=== PATIENT | male | born 1965 | race American Indian/Alaskan Native ===

== ENCOUNTER 2019-07-06 14:35 | Emergency (ER) | payer MEDICARE, OTHER ==
--- NOTE | 2019-07-06 14:45 | Emergency Department Report ---
Blank Doc - Documentation Documentation: This is a 54-year-old male that presents with SOB and cough. m HX of cardiac. This initial assessment/diagnostic orders/clinical plan/treatment(s) is/are subject to change based on patient's health status, clinical progression and re- assessment by fellow clinical providers in the ED. Further treatment and workup at subsequent clinical providers discretion. Patient/guardians urged not to elope from the ED as their condition may be serious if not clinically assessed and managed. Initial orders include: 1- Patient sent to MAIN for further evaluation and treatment 2- las 3- EKG 4- cXR
[2019-07-06 15:26] LABS: Basophils % (Auto) 0.9 % (0.0-1.8); Eosinophils # (Auto) 0.2 K/mm3 (0.0-0.4); Eosinophils % (Auto) 3.4 % (0.0-4.3); Hematocrit 45.1 % (35.5-45.6); Hemoglobin 15.4 gm/dl (11.8-15.2); Lymphocytes # (Auto) 1.6 K/mm3 (1.2-5.4); Lymphocytes % (Auto) 33.5 % (13.4-35.0); Mean Corpuscular HGB Conc 34 % (32-34); Mean Corpuscular Volume 85 fl (84-94); Monocytes # (Auto) 0.5 K/mm3 (0.0-0.8); Monocytes % (Auto) 10.8 % (0.0-7.3); Platelet Count 196 K/mm3 (140-440); Red Blood Count 5.29 M/mm3 (3.65-5.03); Red Cell Distribution Width 13.8 % (13.2-15.2)
[2019-07-06 15:38] LABS: INR 1.95 (0.87-1.13)
[2019-07-06 15:40] LABS: Partial Thromboplastin Time 56.9 Sec. (24.2-36.6)
[2019-07-06 15:47] LABS: BUN/Creatinine Ratio 11; Blood Urea Nitrogen 13 mg/dL (9-20); Calcium 9.1 mg/dL (8.4-10.2); Hemolysis Index 8
--- NOTE | 2019-07-06 16:13 | XRay Report ---
CHEST 2 VIEWS INDICATION: Chest pain, shortness of breath, fatigue. COMPARISON: None FINDINGS: Support devices: A single lead pacemaker device terminates in the right ventricle. Heart: Within normal limits. Lungs/pleura: No acute air space or interstitial disease. No pneumothorax. Additional findings: None. IMPRESSION: No acute findings. Signer Name: Gibran Garcia Jr, MD Signed: 07/06/2019 4:09 PM Workstation Name: [id number]
--- NOTE | 2019-07-06 16:41 | Emergency Department Report ---
ED Shortness of Breath HPI - General Chief Complaint: Chest Pain Stated Complaint: SOB/COUGHING Time Seen by Provider: 07/06/19 14:44 Source: patient Mode of arrival: Ambulatory Limitations: Language Barrier - History of Present Illness Initial Comments: 54-year-old male with history of CVA with aphasia, atrial fibrillation (currently on Pradaxa) with pacer/defibrillator presents to ED with shortness of breath for approximately 3 weeks. states patient was seen by his PCP 3 weeks ago. At that time he was having dyspnea on exertion. PCP ordered an outpatient chest x-ray, however, patient did not want to go because he thought that his bottom sprayer would be able to do one at today's appointment. Over the last 3 weeks, patient has developed cough, productive of whitish sputum. denies any fever. Patient denies chest pain. reports development of the lateral lower extremity edema. Patient was seen by his bottom sprayer, Dr. Alex rascon, today. States he was given a prescription for Lasix at his appointment, but advised to come to the ER for a chest x-ray. MD Complaint: shortness of breath, cough -: week(s) (3) Severity: moderate Consistency: intermittent Improves With: rest Worsens With: exertion Associated Symptoms: cough, sputum production Treatments Prior to Arrival: none - Related Data Home Oxygen Therapy: No Home Medications Medication Instructions Recorded Confirmed Last Taken Carvedilol [Coreg] 25 mg PO BID 10/08/15 10/08/15 10/07/15 Chlorthalidone [Thalitone] 25 mg PO QDAY 10/08/15 10/08/15 10/07/15 Dabigatran [Pradaxa] 150 mg PO BID 10/08/15 10/08/15 10/07/15 Digoxin [Lanoxin] 0.125 mg PO DAILY 10/08/15 10/08/15 10/07/15 Diltiazem HCl [Diltiazem ER] 240 mg PO DAILY 10/08/15 10/08/15 10/07/15 Lisinopril [Zestril TAB] 40 mg PO QDAY 10/08/15 10/08/15 10/07/15 Oxybutynin [Ditropan] 5 mg PO BID 10/08/15 10/08/15 10/07/15 Pravastatin [Pravachol] 80 mg PO QHS 10/08/15 10/08/15 10/07/15 Triamcinolone Acetonide [Oralone 5 gm DT Q6HR 10/08/15 10/08/15 10/07/15 0.1% PASTE] cephALEXin [Keflex] 500 mg PO Q12HR 10/08/15 10/08/15 10/07/15 Allergies Allergy/AdvReac Type Severity Reaction Status Date / Time No Known Allergies Allergy Unverified 10/08/15 03:03 ED Review of Systems ROS: Stated complaint: SOB/COUGHING Other details as noted in HPI Comment: All other systems reviewed and negative Constitutional: denies: chills, fever Respiratory: cough, SOB with exertion Cardiovascular: denies: chest pain Musculoskeletal: other (reports lower extremity edema) ED Past Medical Hx - Past Medical History Hx Hypertension: Yes Hx CVA: Yes (right side deficits) Hx Congestive Heart Failure: Yes Hx Diabetes: No Hx Renal Disease: No Hx Arthritis: Yes (gout) Hx Seizures: No Hx Asthma: No Additional medical history: irregular heart beat - Surgical History Hx Pacemaker: Yes Hx Internal Defibrillator: Yes - Social History Smoking Status: Never Smoker Substance Use Type: None - Medications Home Medications: Home Medications Medication Instructions Recorded Confirmed Last Taken Type Carvedilol [Coreg] 25 mg PO BID 10/08/15 10/08/15 10/07/15 History Chlorthalidone [Thalitone] 25 mg PO QDAY 10/08/15 10/08/15 10/07/15 History Dabigatran [Pradaxa] 150 mg PO BID 10/08/15 10/08/15 10/07/15 History Digoxin [Lanoxin] 0.125 mg PO DAILY 10/08/15 10/08/15 10/07/15 History Diltiazem HCl [Diltiazem ER] 240 mg PO DAILY 10/08/15 10/08/15 10/07/15 History Lisinopril [Zestril TAB] 40 mg PO QDAY 10/08/15 10/08/15 10/07/15 History Oxybutynin [Ditropan] 5 mg PO BID 10/08/15 10/08/15 10/07/15 History Pravastatin [Pravachol] 80 mg PO QHS 10/08/15 10/08/15 10/07/15 History Triamcinolone Acetonide [Oralone 5 gm DT Q6HR 10/08/15 10/08/15 10/07/15 History 0.1% PASTE] cephALEXin [Keflex] 500 mg PO Q12HR 10/08/15 10/08/15 10/07/15 History ED Physical Exam - General Limitations: Language Barrier General appearance: alert, in no apparent distress - Head Head exam: Present: atraumatic, normocephalic - Eye Eye exam: Present: normal appearance - ENT ENT exam: Present: mucous membranes moist - Neck Neck exam: Present: normal inspection - Respiratory Respiratory exam: Present: normal lung sounds bilaterally. Absent: respiratory distress - Cardiovascular Cardiovascular Exam: Present: regular rate, normal rhythm - GI/Abdominal GI/Abdominal exam: Present: soft. Absent: distended, tenderness - Extremities Exam Extremities exam: Present: pedal edema - Neurological Exam Neurological exam: Present: alert. Absent: CN II-XII intact (expressive aphasia present) - Psychiatric Psychiatric exam: Present: normal affect, normal mood - Skin Skin exam: Present: warm, dry, intact, normal color ED Course Vital Signs 07/06/19 07/06/19 07/06/19 14:44 15:59 17:38 Temperature 97.5 F L 98.1 F 98.1 F Pulse Rate 88 86 69 Respiratory 20 20 20 Rate Blood Pressure 164/112 Blood Pressure 147/102 151/88 [Left] O2 Sat by Pulse 99 97 98 Oximetry ED Medical Decision Making - Lab Data Result diagrams: 07/06/19 15:13 07/06/19 15:13 - EKG Data -: EKG Interpreted by Mt EKG shows normal: QRS complexes, ST-T waves Rate: normal - EKG Data Interpretation: other (Afib present) - Radiology Data Radiology results: report reviewed, image reviewed - Medical Decision Making - CXR negative - possibly early CHF w/ dyspnea on exertion, elevated BNP - pt received rx for Lasix today from bottom sprayer - no resp distress, O2 sats normal - will d/c home at this time - f/u with bottom sprayer - Differential Diagnosis pneumonia, CHF, pleural effusion, ACS Critical care attestation.: If time is entered above; I have spent that time in minutes in the direct care of this critically ill patient, excluding procedure time. ED Disposition Clinical Impression: Dyspnea Disposition: DC-01 TO HOME OR SELFCARE Is pt being admited?: No Condition: Stable Instructions: Heart Failure (ED), Dyspnea (ED) Referrals: NATALIO ROJAS MD [Staff Physician] - 7-10 days Time of Disposition: 18:19
[2019-07-06 17:41] VITALS: BP 151/88
== END 2019-07-06 18:35 | disposition home or self-care (01) ==
LOC: ED 14:35
DX: R47.01 Aphasia (principal); R06.00 Dyspnea, unspecified; I11.0 Hypertensive heart disease with heart failure; I50.9 Heart failure, unspecified; I48.91 Unspecified atrial fibrillation; M10.9 Gout, unspecified; Z86.73 Personal history of transient ischemic attack (TIA), and cerebral infarction without residual deficits; Z95.0 Presence of cardiac pacemaker; Z79.899 Other long term (current) drug therapy
CPT/HCPCS: 36415; 71046; 80048; 83880; 84484; 85025; 85610; 85730; 93005; 93010; 99284

== ENCOUNTER 2019-07-19 14:59 | Inpatient (IN) | payer MEDICARE ==
--- NOTE | 2019-07-19 15:19 | Event Note ---
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 Further treatment and workup at subsequent clinical providers discretion. Patient/guardian urged not to elope from the ED as their condition may be serious if not clinically assessed and managed. Initial orders include: EKG
[2019-07-19] MEDS ORDERED: CARDIZEM IV ONE (15:38)
[2019-07-19] MEDS ORDERED: NACL 0.9% 500 ML 500 ML IV ONE (15:38)
[2019-07-19] MEDS ORDERED: CARDIZEM ONE (15:39)
--- NOTE | 2019-07-19 15:39 | Emergency Department Report ---
ED General Adult HPI - General Chief complaint: Chest Pain Stated complaint: CHEST PAIN/COLD/CLAIMY Time Seen by Provider: 07/19/19 15:12 Source: patient, RN notes reviewed, old records reviewed Mode of arrival: Ambulatory Limitations: Physical Limitation - History of Present Illness Initial comments: This is a pleasant 54-year-old gentleman. This patient is not known to this provider previously. Primary care Dr.: Dr. Lyon Cardiology: [place] [facility] Past medical history: A. fib, on chronic anticoagulation, pradaxa, congestive heart failure, ejection fraction of 30%, [employer] [employer] AICD in situ, high cholesterol Strokes, residual speech impairment, residual right upper extremity right lower external vomiting weakness This is a pleasant 54-year-old gentleman. The patient presents to the ER with family after reports of defibrillator going off 2, earlier on today, although patient was mowing the lawn. The patient endorses compliance with his medications. He denies physical pain at this time. He denies dietary indiscret ion at this time. In the ER, patient felt to be in A. fib, with RVR, at 137 bpm. He is given 500 mL of normal saline, 20 mg of diltiazem, an rate slows down to the high 80s, low 90s. The patient states he has no complaints at this time. He and his family are adamant that he does not have any chest pain. -: Sudden Severity scale (0 -10): 0 Improves with: none Worsens with: none Associated Symptoms: denies other symptoms - Related Data Home Medications Medication Instructions Recorded Confirmed Last Taken Carvedilol [Coreg] 25 mg PO BID 10/08/15 10/08/15 10/07/15 Chlorthalidone [Thalitone] 25 mg PO QDAY 10/08/15 10/08/15 10/07/15 Dabigatran [Pradaxa] 150 mg PO BID 10/08/15 10/08/15 10/07/15 Digoxin [Lanoxin] 0.125 mg PO DAILY 10/08/15 10/08/15 10/07/15 Diltiazem HCl [Diltiazem ER] 240 mg PO DAILY 10/08/15 10/08/15 10/07/15 Lisinopril [Zestril TAB] 40 mg PO QDAY 10/08/15 10/08/15 10/07/15 Oxybutynin [Ditropan] 5 mg PO BID 10/08/15 10/08/15 10/07/15 Pravastatin [Pravachol] 80 mg PO QHS 10/08/15 10/08/15 10/07/15 Triamcinolone Acetonide [Oralone 5 gm DT Q6HR 10/08/15 10/08/15 10/07/15 0.1% PASTE] cephALEXin [Keflex] 500 mg PO Q12HR 10/08/15 10/08/15 10/07/15 Allergies Allergy/AdvReac Type Severity Reaction Status Date / Time No Known Allergies Allergy Unverified 10/08/15 03:03 ED Review of Systems ROS: Stated complaint: CHEST PAIN/COLD/CLAIMY Other details as noted in HPI Comment: All other systems reviewed and negative ED Past Medical Hx - Past Medical History Hx Hypertension: Yes Hx CVA: Yes (right side deficits) Hx Congestive Heart Failure: Yes Hx Diabetes: No Hx Renal Disease: No Hx Arthritis: Yes (gout) Hx Seizures: No Hx Asthma: No Additional medical history: irregular heart beat - Surgical History Hx Pacemaker: Yes Hx Internal Defibrillator: Yes - Social History Smoking Status: Never Smoker Substance Use Type: Alcohol - Medications Home Medications: Home Medications Medication Instructions Recorded Confirmed Last Taken Type Carvedilol [Coreg] 25 mg PO BID 10/08/15 10/08/15 10/07/15 History Chlorthalidone [Thalitone] 25 mg PO QDAY 10/08/15 10/08/15 10/07/15 History Dabigatran [Pradaxa] 150 mg PO BID 10/08/15 10/08/15 10/07/15 History Digoxin [Lanoxin] 0.125 mg PO DAILY 10/08/15 10/08/15 10/07/15 History Diltiazem HCl [Diltiazem ER] 240 mg PO DAILY 10/08/15 10/08/15 10/07/15 History Lisinopril [Zestril TAB] 40 mg PO QDAY 10/08/15 10/08/15 10/07/15 History Oxybutynin [Ditropan] 5 mg PO BID 10/08/15 10/08/15 10/07/15 History Pravastatin [Pravachol] 80 mg PO QHS 1110/08/15 10/07/15 History Triamcinolone Acetonide [Oralone 5 gm DT Q6HR 10/08/15 10/08/15 10/07/15 History 0.1% PASTE] cephALEXin [Keflex] 500 mg PO Q12HR 10/08/15 10/08/15 10/07/15 History ED Physical Exam - General Limitations: Physical Limitation General appearance: alert, in no apparent distress - Head Head exam: Present: atraumatic, normocephalic - Eye Eye exam: Present: normal appearance, EOMI. Absent: nystagmus - ENT ENT exam: Present: normal exam, normal orophraynx, mucous membranes moist, normal external ear exam - Neck Neck exam: Present: normal inspection - Respiratory Respiratory exam: Present: normal lung sounds bilaterally. Absent: respiratory distress - Cardiovascular Cardiovascular Exam: Present: tachycardia, irregular rhythm, normal heart sounds. Absent: systolic murmur, diastolic murmur, rubs, gallop - GI/Abdominal GI/Abdominal exam: Present: soft. Absent: distended, tenderness, guarding, rebound, pulsatile mass - Rectal Rectal exam: Present: deferred - Extremities Exam Extremities exam: Present: normal inspection, other (2+ pulses noted in the bilateral upper, lower extremities. There is no long bone tenderness. Musculoskeletal compartments are soft. The pelvis is stable.). Absent: calf tenderness - Back Exam Back exam: Present: normal inspection. Absent: tenderness, CVA tenderness (R), CVA tenderness (L), paraspinal tenderness, vertebral tenderness - Neurological Exam Neurological exam: Present: alert, motor sensory deficit (his chronic weakness right arm, right leg. This chronic speech impediment), other (there is 4 out of 5 strength right arm and right leg. There is 5 out of 5 strength left arm and left leg. There is no facial droop. Tongue is midline. Patient chronically dysarthric.) - Psychiatric Psychiatric exam: Present: normal affect, normal mood - Skin Skin exam: Present: warm, dry, intact, normal color. Absent: rash ED Course Vital Signs 07/19/19 07/19/19 07/19/19 15:13 15:30 15:44 Temperature 98.2 F Pulse Rate 62 112 H Respiratory 18 19 Rate Blood Pressure 132/66 Blood Pressure 128/83 [Left] O2 Sat by Pulse 98 98 Oximetry 07/19/19 07/19/19 07/19/19 15:45 16:00 16:15 Temperature Pulse Rate 104 H 83 83 Respiratory 13 19 19 Rate Blood Pressure 123/65 123/65 83/56 Blood Pressure [Left] O2 Sat by Pulse 96 97 100 Oximetry 07/19/19 07/19/19 16:30 16:42 Temperature Pulse Rate 85 80 Respiratory 13 18 Rate Blood Pressure 110/78 Blood Pressure 110/62 [Left] O2 Sat by Pulse 100 Oximetry - Reevaluation(s) Reevaluation #1: 07/19/19 16:12 Differential diagnosis, including but not limited to: A. fib with RVR, electrolyte derangement, acute coronary syndrome, pneumonia, urinary tract infection, thyroid derangement Assessment and plan: 54-year-old gentleman with resolved A. fib with RVR. He is on permanent systemic anticoagulation, not hypoxic, not tachycardic at this time, and endorses no DVT or pulmonary embolism risk factors. He endorses that he is not having any pain at this time. We have placed a page to his nursery nurse nutrition services aide, and we are awaiting for them to call back. We have contacted [employer], and their it sales representative PARMJIT, is indicated at the advice will be interrogated tomorrow. X-ray the chest is unremarkable. Patient endorses a dietary compliance, and medication compliance. I suspect that the patient had spontaneous A. fib with RVR, triggered his defibrillator secondary to excessive rate, and received a shock 2. However, we will admit the patient to the medical service for observation, cardiology consultation, and adjustment of medications. Hospital physician will be contacted once initial data points have resulted. Reevaluation #2: 07/19/19 16:48 Laboratory studies show acute renal insufficiency, hypomagnesemia. IV fluids ordered, magnesium infusion ordered. Hospital physician is paged to arrange admission. Reevaluation #3: 07/19/19 16:57 Elevated troponin reviewed and appreciated, likely type II troponin leak, likely secondary to A. fib with RVR, and renal insufficiency. Patient is not endorsing any chest pain. Reevaluation #4: 07/19/19 17:05 Dr Fannie Fox to admit Reevaluation #5: 07/19/19 17:08 d/w Dr Elliot Alfredo, who agrees with rate control, electrolyte correction, gentle h ydration, and indicates his group will follow tomorrow in consultation. ED Medical Decision Making - Lab Data Result diagrams: 07/19/19 15:45 07/19/19 15:45 Vital Signs 07/19/19 07/19/19 15:13 15:30 Temperature 98.2 F Pulse Rate 62 112 H Respiratory 18 Rate Blood Pressure 132/66 Blood Pressure 128/83 [Left] O2 Sat by Pulse 98 Oximetry Lab Results 07/19/19 Range/Units 15:45 WBC 6.3 (4.5-11.0) K/mm3 RBC 5.84 H (3.65-5.03) M/mm3 Hgb 16.8 H (11.8-15.2) gm/dl Hct 49.5 H (35.5-45.6) % MCV 85 (84-94) fl MCH 29 (28-32) pg MCHC 34 (32-34) % RDW 13.7 (13.2-15.2) % Vital Signs 07/19/19 07/19/19 15:13 15:30 Temperature 98.2 F Pulse Rate 62 112 H Respiratory 18 Rate Blood Pressure 132/66 Blood Pressure 128/83 [Left] O2 Sat by Pulse 98 Oximetry Lab Results 07/19/19 Range/Units 15:45 WBC 6.3 (4.5-11.0) K/mm3 RBC 5.84 H (3.65-5.03) M/mm3 Hgb 16.8 H (11.8-15.2) gm/dl Hct 49.5 H (35.5-45.6) % MCV 85 (84-94) fl MCH 29 (28-32) pg MCHC 34 (32-34) % RDW 13.7 (13.2-15.2) % - EKG Data -: EKG Interpreted by Or Rate: tachycardia - EKG Data 07/19/19 16:12 EKG #1 shows atrial fibrillation, variable ventricular rate, QTC 491 ms, poor R progression, motion artifact, no endorsement of chest pain, EKG is abnormal, the EKG is not consistent with ST elevation myocardial infarction. - Radiology Data Radiology results: pending, report reviewed, image reviewed INDICATION / CLINICAL INFORMATION: afib w rvr. Chest pain COMPARISON: None available. FINDINGS: SUPPORT DEVICES: None. HEART / MEDIASTINUM: No significant abnormality. LUNGS / PLEURA: No significant pulmonary or pleural abnormality. No pneumothorax. ADDITIONAL FINDINGS: No significant additional findings. IMPRESSION: 1. No acute findings. Signer Name: Felipe Beckett MD Signed: 07/19/2019 3:57 PM Workstation Name: [id number] Transcribed By: Dictated By: Felipe Beckett MD Electronically Authenticated By: Felipe Beckett MD Signed Date/Time: 07/19/19 2671 Critical Care Time: Yes Critical care time in (mins) excluding proc time.: 35 Critical care attestation.: If time is entered above; I have spent that time in minutes in the direct care of this critically ill patient, excluding procedure time. ED Disposition Clinical Impression: Atrial fibrillation with RVR, Defibrillator discharge, ADAL (acute kidney injury), Hypomagnesemia Disposition: OP ADMIT IP TO THIS HOSP Is pt being admited?: Yes Condition: Good Referrals: KIT NICHOLS MD [Primary Care Provider] - 3-5 Days
--- NOTE | 2019-07-19 16:01 | XRay Report ---
CHEST 1 VIEW INDICATION / CLINICAL INFORMATION: afib w rvr. Chest pain COMPARISON: None available. FINDINGS: SUPPORT DEVICES: None. HEART / MEDIASTINUM: No significant abnormality. LUNGS / PLEURA: No significant pulmonary or pleural abnormality. No pneumothorax. ADDITIONAL FINDINGS: No significant additional findings. IMPRESSION: 1. No acute findings. Signer Name: Felipe Beckett MD Signed: 07/19/2019 3:57 PM Workstation Name: [id number]
[2019-07-19 16:03] LABS: Hematocrit 49.5 % (35.5-45.6); Hemoglobin 16.8 gm/dl (11.8-15.2); Mean Corpuscular HGB Conc 34 % (32-34); Mean Corpuscular Volume 85 fl (84-94); Red Blood Count 5.84 M/mm3 (3.65-5.03); Red Cell Distribution Width 13.7 % (13.2-15.2)
[2019-07-19 16:22] LABS: INR 1.62 (0.87-1.13)
[2019-07-19 16:46] LABS: Albumin 4.3 g/dL (3.9-5); Calcium 9.7 mg/dL (8.4-10.2)
[2019-07-19] MEDS ORDERED: MAGNESIUM SULFATE 2GM/50ML 2 GM/50 ML BAG IV ONE (16:48)
[2019-07-19] MEDS ORDERED: K-DUR PO ONE (16:57)
[2019-07-19] MEDS ORDERED: BABY ASPIRIN PO ONE (16:57)
[2019-07-19 17:06] LABS: Platelet Count 231 K/mm3 (140-440)
[2019-07-19 17:08] LABS: Chol/HDL Ratio 3.82 %
--- NOTE | 2019-07-19 17:14 | History and Physical Report ---
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 Pt states that his AICD has discharged multiple times today. Pt states that he was mowing his lawn and experienced a shock in his chest. EMS notified, and upon arrival the patient was found to be in distress with a heart rate in the 130's. Pt transported to [facility]. Pt seen and evaluated in ED and found to have Atrial Fib with RVR complicated by AICD firing. Pt admitted to telemetry. Cardiology consulted in ED. Pt pending interrogation of AICD in AM. No prior admissions for review. All medication listed at time of admission has been reconciled. Pt denies fever, chills, CP, Palpitations, NVD, Trauma, productive cough, skin rash, or recent ill contacts. Past History Past Medical History: atrial fib, heart failure, hyperlipidemia Past Surgical History: Other (AICD placement.) Social history: . denies: smoking, alcohol abuse, prescription drug abuse Family history: hypertension Medications and Allergies Allergies Allergy/AdvReac Type Severity Reaction Status Date / Time No Known Allergies Allergy Unverified 10/08/15 03:03 Home Medications Medication Instructions Recorded Confirmed Last Taken Type Dabigatran [Pradaxa] 150 mg PO BID 10/08/15 10/08/15 10/07/15 History Diltiazem HCl [Diltiazem ER] 240 mg PO DAILY 10/08/15 10/08/15 10/07/15 History Carvedilol [Coreg] 07/19/19 Unknown History Carvedilol [Coreg] 25 mg .ROUTE DAILY 07/19/19 07/19/19 Unknown History Rosuvastatin Calcium 10 mg PO DAILY 07/19/19 07/19/19 Unknown History Active Meds: Active Medications Magnesium Sulfate (Magnesium Sulfate 2gm/50ml) 2 gm in 50 mls @ 100 mls/hr IV ONCE ONE Stop: 07/19/19 17:17 Potassium Chloride (Kcl 10meq/100ml) 10 meq in 100 mls @ 100 mls/hr IV Q1H MARSHA Stop: 07/19/19 18:59 Review of Systems Constitutional: other (AICD discharge), no weight loss, no weight gain, no fever, no chills Ears, nose, mouth and throat: no ear pain, no ear discharge, no tinnitis, no decreased hearing, no nose pain, no nasal congestion Cardiovascular: no chest pain, no orthopnea, no palpitations, no rapid/irregular heart beat, no edema Respiratory: no cough, no cough with sputum, no excessive sputum, no hemoptysis, no shortness of breath Gastrointestinal: no abdominal pain, no nausea, no vomiting, no diarrhea, no constipation, no hematemesis Genitourinary Male: no flank pain, no discharge, no urinary frequency, no n octuria Rectal: no pain, no incontinence, no bleeding Musculoskeletal: no neck stiffness, no neck pain, no shooting arm pain, no arm numbness/tingling, no low back pain, no leg numbness/tingling, no redness of joints Integumentary: no rash, no pruritis, no redness, no wounds, no jaundice, no boils, no blisters Neurological: no head injury, no transient paralysis, no weakness, no parathesias, no tingling, no seizures, no tremors, no ataxia Psychiatric: no anxiety, no memory loss, no change in sleep habits, no sleep disturbances, no change in appetite, no suicidal ideation, no disorientation Endocrine: no cold intolerance, no heat intolerance, no excessive thirst, no polydipsia, no polyuria, no nocturia, no excessive sweating Hematologic/Lymphatic: no easy bruising, no easy bleeding, no lymphadenopathy, no lymphedema Allergic/Immunologic: no urticaria, no wheezing, no persistent infections, no anaphylaxis Exam - Constitutional Vitals: Temp Pulse Resp BP Pulse Ox 98.2 F 80 18 110/62 100 07/19/19 15:13 07/19/19 16:42 07/19/19 16:42 07/19/19 16:42 07/19/19 16:42 General appearance: Present: mild distress, obese - EENT Eyes: Present: PERRL ENT: hearing intact, clear oral mucosa - Neck Neck: Present: supple, normal ROM - Respiratory Respiratory effort: normal Respiratory: bilateral: CTA - Cardiovascular Rhythm: irregularly irregular Heart Sounds: Present: S1 & S2. Absent: rub, click - Extremities Extremities: pulses symmetrical, No edema Peripheral Pulses: within normal limits - Abdominal General gastrointestinal: Present: soft, non-tender, non-distended, normal bowel sounds Male genitourinary: Present: normal - Integumentary Integumentary: Present: clear, warm, dry - Musculoskeletal Musculoskeletal: gait normal, strength equal bilaterally - Psychiatric Psychiatric: appropriate mood/affect, intact judgment & insight - Neurologic Neurologic: CNII-XII intact, moves all extremities Results - Labs CBC & Chem 7: 07/19/19 15:45 07/19/19 15:45 Labs: Abnormal lab results 07/19/19 07/19/19 07/19/19 Range/Units 15:45 15:45 15:45 RBC 5.84 H (3.65-5.03) M/mm3 Hgb 16.8 H (11.8-15.2) gm/dl Hct 49.5 H (35.5-45.6) % PT 18.9 H (12.2-14.9) Sec. INR 1.62 H (0.87-1.13) Potassium 2.8 L* (3.6-5.0) mmol/L Chloride 92.3 L (98-107) mmol/L BUN 25 H (9-20) mg/dL Creatinine 1.7 H (0.8-1.5) mg/dL Glucose 109 H (75-100) mg/dL Magnesium (1.7-2.3) mg/dL Total Creatine Kinase (55-170) units/L Troponin T 0.117 H* (0.00-0.029) ng/mL Total Protein 8.3 H (6.3-8.2) g/dL Triglycerides 152 H (2-149) mg/dL 07/19/19 Range/Units 15:45 RBC (3.65-5.03) M/mm3 Hgb (11.8-15.2) gm/dl Hct (35.5-45.6) % PT (12.2-14.9) Sec. INR (0.87-1.13) Potassium (3.6-5.0) mmol/L Chloride (98-107) mmol/L BUN (9-20) mg/dL Creatinine (0.8-1.5) mg/dL Glucose (75-100) mg/dL Magnesium 1.50 L (1.7-2.3) mg/dL Total Creatine Kinase 729 H (55-170) units/L Troponin T (0.00-0.029) ng/mL Total Protein (6.3-8.2) g/dL Triglycerides (2-149) mg/dL Assessment and Plan - Patient Problems (1) Systolic CHF Current Visit: Yes Status: Acute Qualifiers: Heart failure chronicity: acute on chronic Qualified Code(s): I50.23 - Acute on chronic systolic (congestive) heart failure Plan to address problem: Admit to telemetry, thyroid panel, magnesium level, strict I/O, daily weight, BNP, cardiology consulted in ED, afterload reduction, chest x ray, (2) Atrial fibrillation with RVR Current Visit: Yes Status: Acute Plan to address problem: Cardiology consulted in ED, Cardizem therapy with normalization of heart rate, continue therapeutic anticoagulation. (3) ADAL (acute kidney injury) Current Visit: Yes Status: Acute Plan to address problem: IVF resuscitation therapy, repeat bmp in am to monitor serum creatnine, urine electrolytes, strict I/O, (4) Defibrillator discharge Current Visit: Yes Status: Acute Plan to address problem: AICD interrogation in AM, cardiology consulted in ED, Admit to telemetry. (5) Hypomagnesemia Current Visit: Yes Status: Acute Plan to address problem: Repleted in ED, (6) Hypokalemia Current Visit: Yes Status: Acute Plan to address problem: repleted in ED, repeat bmp in am, (7) DVT prophylaxis Current Visit: Yes Status: Acute Plan to address problem: SCD to BLE while in bed,
[2019-07-19] MEDS ORDERED: TYLENOL PO PRN (17:17)
[2019-07-19] MEDS ORDERED: PERCOCET 5/325 PO PRN (17:17)
[2019-07-19] MEDS ORDERED: SODIUM CHLORIDE FLUSH SYRINGE 10 ML IV PRN ×2 (17:17→17:20)
[2019-07-19] MEDS ORDERED: PROVENTIL IH PRN (17:17)
[2019-07-19] MEDS ORDERED: ZOFRAN IV PRN (17:17)
[2019-07-19] MEDS: KCL 10MEQ/100ML 10 MEQ/100 ML BAG IV SCH ×2 (17:39→22:00)
[2019-07-19] MEDS ORDERED: CARDIZEM CD PO SCH (18:00)
[2019-07-19] MEDS ORDERED: TRIAMCINOLONE ACETONIDE DT SCH (18:00)
[2019-07-19] MEDS ORDERED: DILTIAZEM HCL 240 MG PO SCH (21:00)
[2019-07-19 21:41] LABS: Bilirubin,Urine NEG (Negative); Color,Urine Straw (Yellow); Urobilinogen,Urine < 2.0 mg/dL (<2.0)
[2019-07-19 21:49] LABS: Blood,Urine MOD (Negative)
[2019-07-19] MEDS: PRAVACHOL PO SCH (21:58)
[2019-07-19] MEDS: CARDIZEM CD PO SCH (21:59)
[2019-07-19] MEDS: PRADAXA PO SCH (22:00)
[2019-07-19] MEDS: DITROPAN PO SCH (22:01)
[2019-07-19] MEDS: COREG PO SCH (22:01)
[2019-07-19] MEDS: SODIUM CHLORIDE FLUSH SYRINGE 10 ML IV SCH (22:01)
[2019-07-20 07:45] LABS: Alanine Aminotransferase 24 units/L (7-56); Albumin 3.9 g/dL (3.9-5); BUN/Creatinine Ratio 20; Blood Urea Nitrogen 24 mg/dL (9-20); Hemolysis Index 11
[2019-07-20] MEDS ORDERED: LANOXIN PO SCH (10:00)
--- NOTE | 2019-07-20 10:31 | Consultation ---
History of Present Illness Consult date: 07/20/19 Consult reason: atrial fibrillation History of present illness: Patient is a 54-year old male with aphasia from a CVA in 2006. Patient has a longstanding history of nonischemic cardiomyopathy and has an indwelling cardiac defibrillator ([employer]). A follow up echocardiogram two months ago shows an LVEF 30-35%. Patient has permanent atrial fibrillation, on pradaxa for anticoagulation and rate controlled with Diltiazem and Carvedilol. Patient was brought to this hospital and found to be in rapid atrial fibrillation. This was treated with intravenous Diltiazem in the emergency department. Initial labs showed severe hypokalemia with a potassium of 2.8 and acute renal failure, creatinine of 1.7. [facility] shocks for rapid atrial fibrillation. Labs today shows continued hypokalemia with a potassium of 2.7. Past History Past Medical History: atrial fib, heart failure, hyperlipidemia Past Surgical History: Other (AICD placement.) Social history: . denies: smoking, alcohol abuse, prescription drug abuse Family history: hypertension Medications and Allergies Allergies Allergy/AdvReac Type Severity Reaction Status Date / Time No Known Allergies Allergy Unverified 10/08/15 03:03 Home Medications Medication Instructions Recorded Confirmed Last Taken Type Dabigatran [Pradaxa] 150 mg PO BID 10/08/15 07/19/19 07/19/19 History Diltiazem HCl [Diltiazem ER] 240 mg PO DAILY 10/08/15 07/19/19 07/19/19 History Carvedilol [Coreg] 25 mg .ROUTE DAILY 07/19/19 07/19/19 07/19/19 History Rosuvastatin Calcium 10 mg PO DAILY 07/19/19 07/19/19 07/19/19 History Active Meds: Active Medications Acetaminophen (Tylenol) 650 mg PO Q4H PRN PRN Reason: Pain MILD(1-3)/Fever >100.5/H[place] Albuterol (Proventil) 2.5 mg IH Q4HRT PRN PRN Reason: Shortness Of Breath Carvedilol (Coreg) 25 mg PO BID [facility] Last Admin: 07/19/19 22:01 Dose: Not Given Documented by: Chlorthalidone (Thalitone) 25 mg PO QDAY [facility] Dabigatran (Pradaxa) 150 mg PO BID [facility]; Protocol Last Admin: 07/19/19 22:00 Dose: 150 mg Documented by: Digoxin (Lanoxin) 0.125 mg PO DAILY [facility] Diltiazem HCl (Cardizem Cd) 240 mg PO QDAY [facility] Last Admin: 07/19/19 21:59 Dose: 240 mg Documented by: Lisinopril (Zestril) 40 mg PO QDAY [facility] Ondansetron HCl (Zofran) 4 mg IV Q8H PRN PRN Reason: Nausea And Vomiting Oxybutynin Chloride (Ditropan) 5 mg PO BID [facility] Last Admin: 07/19/19 22:01 Dose: Not Given Documented by: Oxycodone/Acetaminophen (Percocet 5/325) 1 tab PO Q6H PRN PRN Reason: Pain, Moderate (4-6) Pravastatin Sodium (Pravachol) 80 mg PO QHS [facility] Last Admin: 07/19/19 21:58 Dose: 80 mg Documented by: Sodium Chloride (Sodium Chloride Flush Syringe 10 Ml) 10 ml IV BID [facility] Last Admin: 07/19/19 22:01 Dose: 10 ml Documented by: Sodium Chloride (Sodium Chloride Flush Syringe 10 Ml) 10 ml IV PRN PRN PRN Reason: LINE FLUSH Physical Examination Vital Signs Temp Pulse Resp BP Pulse Ox 98.2 F 62 18 128/83 98 07/19/19 15:13 07/19/19 15:13 07/19/19 15:13 07/19/19 15:13 07/19/19 15:13 General appearance: no acute distress HEENT: Positive: PERRL Neck: Positive: trachea midline Cardiac: Positive: irregularly irregular Lungs: Positive: Decreased Breath Sounds Neuro: Positive: Weakness Results 07/19/19 15:45 07/20/19 06:34 Cardiac Enzymes 07/19/19 07/20/19 Range/Units 15:45 06:34 AST 36 49 H (5-40) units/L Coagulation 07/19/19 Range/Units 15:45 PT 18.9 H (12.2-14.9) Sec. INR 1.62 H (0.87-1.13) Lipids 07/19/19 Range/Units 15:45 Triglycerides 152 H (2-149) mg/dL Cholesterol 172 (50-199) mg/dL HDL Cholesterol 45 (40-59) mg/dL Cholesterol/HDL Ratio 3.82 % CBC 07/19/19 Range/Units 15:45 WBC 6.3 (4.5-11.0) K/mm3 RBC 5.84 H (3.65-5.03) M/mm3 Hgb 16.8 H (11.8-15.2) gm/dl Hct 49.5 H (35.5-45.6) % Plt Count 231 (140-440) K/mm3 Comprehensive Metabolic Panel 07/19/19 07/20/19 Range/Units 15:45 06:34 Sodium 138 139 (137-145) mmol/L Potassium 2.8 L* 2.7 L* (3.6-5.0) mmol/L Chloride 92.3 L 96.4 L (98-107) mmol/L Carbon Dioxide 28 30 (22-30) mmol/L BUN 25 H 24 H (9-20) mg/dL Creatinine 1.7 H 1.2 (0.8-1.5) mg/dL Glucose 109 H 115 H (75-100) mg/dL Calcium 9.7 9.0 (8.4-10.2) mg/dL AST 36 49 H (5-40) units/L ALT 25 24 (7-56) units/L Alkaline Phosphatase 52 46 (35-129) units/L Total Protein 8.3 H 7.4 (6.3-8.2) g/dL Albumin 4.3 3.9 (3.9-5) g/dL Assessment and Plan Permanent Afib on pradaxa for oral anticoagulation Hypokalemia Acute renal failure -resolved Nonischemic cardiomyopathy EF 30-35% by echo 04/2019 Presence of AICD ([employer]) interrogation revealed multiple ICD shocks for rapid afib Hypertension Prior CVA
[2019-07-20] MEDS: CARDIZEM CD PO SCH (10:58)
[2019-07-20] MEDS: THALITONE PO SCH (11:00)
[2019-07-20] MEDS: ZESTRIL PO SCH (11:00)
[2019-07-20] MEDS: PRADAXA PO SCH ×2 (11:00→22:49)
[2019-07-20] MEDS: COREG PO SCH (11:00)
[2019-07-20] MEDS: SODIUM CHLORIDE FLUSH SYRINGE 10 ML IV SCH ×2 (11:02→22:51)
[2019-07-20] MEDS: DITROPAN PO SCH ×2 (11:02→22:50)
[2019-07-20] MEDS ORDERED: K-DUR PO NR ×2 (11:19→15:20)
--- NOTE | 2019-07-20 11:24 | Progress Note ---
Assessment and Plan Assessment and plan: Atrial fibrillation. Continue on pradaxa for oral anticoagulation. Cardiology following. Hypokalemia. Replete potassium. Acute renal failure. Continue IV fluid hydration and follow BMP. Creatinine has improved since admission. Nonischemic cardiomyopathy. EF 30-35% by echo 04/2019 Presence of AICD ([employer]). Interrogation revealed multiple ICD shocks for rapid afib Hypertension. Continue antihypertensive medications. History of CVA in 2006. Residual right-sided hemiparesis and nonverbal History Interval history: Patient is a 54-year old male with aphasia from a CVA in 2006. Patient has a longstanding history of nonischemic cardiomyopathy and has an indwelling cardiac defibrillator ([employer]). A follow up echocardiogram two months ago shows an LVEF 30-35%. Patient has permanent atrial fibrillation, on pradaxa for anticoagulation and rate controlled with Diltiazem and Carvedilol. Patient was brought to this hospital and found to be in rapid atrial fibrillation. This was treated with intravenous Diltiazem in the emergency department. Initial labs showed severe hypokalemia with a potassium of 2.8 and acute renal failure, creatinine of 1.7. Further evaluation with a device interrogation showed multiple shocks for rapid atrial fibrillation. Labs today shows continued hypokalemia with a potassium of 2.7. Hospitalist Physical - Constitutional Vitals: Temp Pulse Resp BP Pulse Ox 98.0 F 65 18 142/98 97 07/20/19 08:33 07/20/19 11:00 07/20/19 08:33 07/20/19 11:00 07/20/19 08:33 General appearance: Present: no acute distress - EENT Eyes: Present: PERRL, EOM intact ENT: hearing intact, clear oral mucosa, dentition normal - Neck Neck: Present: supple, normal ROM - Respiratory Respiratory effort: normal Respiratory: bilateral: CTA - Cardiovascular Rhythm: regular Heart Sounds: Present: S1 & S2. Absent: gallop, rub - Extremities Extremities: no ischemia, No edema, Full ROM - Abdominal General gastrointestinal: soft, non-tender, non-distended, normal bowel sounds - Integumentary Integumentary: Present: clear, warm, dry - Neurologic Neurologic: CNII-XII intact, moves all extremities Results - Labs CBC & Chem 7: 07/19/19 15:45 07/20/19 06:34 Labs: Laboratory Last Values WBC 6.3 K/mm3 (4.5-11.0) 07/19/19 15:45 RBC 5.84 M/mm3 (3.65-5.03) H 07/19/19 15:45 Hgb 16.8 gm/dl (11.8-15.2) H 07/19/19 15:45 Hct 49.5 % (35.5-45.6) H 07/19/19 15:45 MCV 85 fl (84-94) 07/19/19 15:45 MCH 29 pg (28-32) 07/19/19 15:45 MCHC 34 % (32-34) 07/19/19 15:45 RDW 13.7 % (13.2-15.2) 07/19/19 15:45 Plt Count 231 K/mm3 (140-440) 07/19/19 15:45 PT 18.9 Sec. (12.2-14.9) H 07/19/19 15:45 INR 1.62 (0.87-1.13) H 07/19/19 15:45 Sodium 139 mmol/L (137-145) 07/20/19 06:34 Potassium 2.7 mmol/L (3.6-5.0) L* 07/20/19 06:34 Chloride 96.4 mmol/L (98-107) L 07/20/19 06:34 Carbon Dioxide 30 mmol/L (22-30) 07/20/19 06:34 15 mmol/L 07/20/19 06:34 BUN 24 mg/dL (9-20) H 07/20/19 06:34 1.2 mg/dL (0.8-1.5) 07/20/19 06:34 Estimated GFR > 60 ml/min 07/20/19 06:34 20 % 07/20/19 06:34 Glucose 115 mg/dL (75-100) H 07/20/19 06:34 Calcium 9.0 mg/dL (8.4-10.2) 07/20/19 06:34 Magnesium 1.50 mg/dL (1.7-2.3) L 07/19/19 15:45 0.90 mg/dL (0.1-1.2) 07/20/19 06:34 AST 49 units/L (5-40) H 07/20/19 06:34 ALT 24 units/L (7-56) 07/20/19 06:34 46 units/L (35-129) 07/20/19 06:34 729 units/L (55-170) H 07/19/19 15:45 0.194 ng/mL (0.00-0.029) H* D 07/19/19 23:30 7.4 g/dL (6.3-8.2) 07/20/19 06:34 3.9 g/dL (3.9-5) 07/20/19 06:34 1.1 % 07/20/19 06:34 Triglycerides 152 mg/dL (2-149) H 07/19/19 15:45 Cholesterol 172 mg/dL (50-199) 07/19/19 15:45 115 mg/dL (50-130) 07/19/19 15:45 45 mg/dL (40-59) 07/19/19 15:45 3.82 % 07/19/19 15:45 TSH 2.390 mlU/mL (0.270-4.200) 07/19/19 15:45 Free T4 1.17 ng/dL (0.76-1.46) 07/19/19 15:45 Straw (Yellow) 07/19/19 20:37 Clear (Clear) 07/19/19 20:37 6.0 (5.0-7.0) 07/19/19 20:37 Ur Specific Palmer 1.008 (1.003-1.030) 07/19/19 20:37 100 mg/dl mg/dL (Negative) 07/19/19 20:37 Neg mg/dL (Negative) 07/19/19 20:37 Neg mg/dL (Negative) 07/19/19 20:37 Mod (Negative) 07/19/19 20:37 Neg (Negative) 07/19/19 20:37 Neg (Negative) 07/19/19 20:37 < 2.0 mg/dL (<2.0) 07/19/19 20:37 Ur Leukocyte Esterase Neg (Negative) 07/19/19 20:37 1.0 /HPF (0.0-6.0) 07/19/19 20:37 3.0 /HPF (0.0-6.0) 07/19/19 20:37 Active Medications - Current Medications Current Medications: Generic Name Dose Route Start Last Admin Trade Name Freq PRN Reason Stop Dose Admin Acetaminophen 650 mg 07/19/19 17:17 Tylenol PO Q4H PRN Pain MILD(1-3)/Fever >100.5/[place] Albuterol 2.5 mg 07/19/19 17:17 Proventil IH Q4HRT PRN Shortness Of Breath Carvedilol 25 mg 07/19/19 22:00 07/20/19 11:00 Coreg PO 25 mg BID [facility] Administration Chlorthalidone 25 mg 07/20/19 10:00 07/20/19 11:00 Thalitone PO 25 mg QDAY [facility] Administration Dabigatran 150 mg 07/19/19 22:00 07/20/19 11:00 Pradaxa PO 150 mg BID [facility] Administration Protocol Digoxin 0.125 mg 07/20/19 10:00 07/20/19 11:00 Lanoxin PO 0.125 mg DAILY [facility] Administration Diltiazem HCl 240 mg 07/19/19 21:00 07/20/19 10:58 Cardizem Cd PO 240 mg QDAY [facility] Administration Lisinopril 40 mg 07/20/19 10:00 07/20/19 11:00 Zestril PO 40 mg QDAY [facility] Administration Ondansetron HCl 4 mg 07/19/19 17:17 Zofran IV Q8H PRN Nausea And Vomiting Oxybutynin Chloride 5 mg 07/19/19 22:00 07/20/19 11:02 Ditropan PO 5 mg BID [facility] Administration Oxycodone/Acetaminophen 1 tab 07/19/19 17:17 Percocet 5/325 PO Q6H PRN Pain, Moderate (4-6) Potassium Chloride 40 meq 07/20/19 11:19 K-Dur PO 07/20/19 11:20 ONCE ONE Potassium Chloride 40 meq 07/20/19 15:20 K-Dur PO 07/20/19 15:21 ONCE ONE Pravastatin Sodium 80 mg 07/19/19 22:00 07/19/19 21:58 Pravachol PO 80 mg QHS [facility] Administration Sodium Chloride 10 ml 07/19/19 22:00 07/20/19 11:02 Sodium Chloride Flush Syringe 10 Ml IV 10 ml BID [facility] Administration Sodium Chloride 10 ml 07/19/19 17:17 Sodium Chloride Flush Syringe 10 Ml IV PRN PRN LINE FLUSH
[2019-07-20] MEDS: CORDARONE PO SCH (13:00)
[2019-07-20] MEDS: PRAVACHOL PO SCH (22:50)
[2019-07-20] MEDS: LOPRESSOR PO SCH (22:50)
[2019-07-21 06:08] LABS: Hematocrit TNR % (35.5-45.6); Hemoglobin TNR gm/dl (11.8-15.2); Mean Corpuscular Volume TNR fl (84-94); Red Blood Count TNR M/mm3 (3.65-5.03)
[2019-07-21 06:09] LABS: Basophils # (Auto) TNR K/mm3 (0.0-0.1); Basophils % (Auto) TNR % (0.0-1.8); Eosinophils # (Auto) TNR K/mm3 (0.0-0.4); Eosinophils % (Auto) TNR % (0.0-4.3); Lymphocytes # (Auto) TNR K/mm3 (1.2-5.4); Lymphocytes % (Auto) TNR % (13.4-35.0); Mean Corpuscular HGB Conc TNR % (32-34); Mean Platelet Volume TNR fl (6-12); Monocytes # (Auto) TNR K/mm3 (0.0-0.8); Monocytes % (Auto) TNR % (0.0-7.3); Platelet Count TNR K/mm3 (140-440); Red Cell Distribution Width TNR % (13.2-15.2)
[2019-07-21 06:13] LABS: BUN/Creatinine Ratio 20; Blood Urea Nitrogen 26 mg/dL (9-20); Calcium 8.8 mg/dL (8.4-10.2); Hemolysis Index 50
[2019-07-21 08:29] VITALS: BP 111/75
--- NOTE | 2019-07-21 09:47 | Discharge Summary ---
Providers - Providers Date of Admission: 07/19/19 17:17 Date of discharge: 07/21/19 Attending physician: JEAN-PIERRE ROCHA 07/19/19 Consult to Cardiac Rehabilitation [CONS] Routine Reason For Exam: Phase I 07/19/19 15:37 Consult to Physician [CONS] Urgent Comment: Consulting Provider: NATALIO ROJAS Physician Instructions: Reason For Exam: arib rvr Primary care physician: KIT NICHOLS Hospitalization Reason for admission: cp, afib Condition: Good Hospital course: 54-year-old man with a dilated nonischemic cardiomyopathy, chronic atrial fibrillation and a cardiac defibrillator in situ who was admitted to the hospital with palpitations, which started while he was mowing his lawn, and was followed by defibrillator discharge. He is on a rate control strategy with diltiazem and carvedilol, and oral anticoagulation with pradaxa. EKG in the emergency room was his chronic atrial fibrillation with rapid ventricular response. A defibrillator interrogation confirms that he was shocked for rapid atrial fibrillation. No ventricular tachycardia arrhythmias were reported. Cardiology saw the patient in consultation and enhanced AV michael blockade. I recommended continuing diltiazem and switching carvedilol to metoprolol and possibly add amiodarone. The patient's rate was controlled with the adjustment in medications. Also, cardiology recommended to Continue oral anticoagulation on discharge. Patient is felt to have received maximal hospital benefit for discharge. Dedicated discharge time 32 minutes. Disposition: -01 TO HOME OR SELFCARE Time spent for discharge: 32 - Discharge Diagnoses (1) Atrial fibrillation with RVR Status: Acute (2) Defibrillator discharge Status: Acute (3) Hypokalemia Status: Acute (4) Hypomagnesemia Status: Acute Core Measure Documentation - Palliative Care Palliative Care/ Comfort Measures: Not Applicable - Core Measures Any of the following diagnoses?: none Exam - Constitutional Vitals: Temp Pulse Resp BP Pulse Ox 98.2 F 78 18 111/75 97 07/21/19 08:27 07/21/19 08:27 07/21/19 08:27 07/21/19 08:27 07/21/19 08:27 General appearance: Present: no acute distress, well-nourished - EENT Eyes: Present: PERRL ENT: hearing intact, clear oral mucosa - Neck Neck: Present: supple, normal ROM - Respiratory Respiratory effort: normal Respiratory: bilateral: CTA - Cardiovascular Heart Sounds: Present: S1 & S2. Absent: rub, click - Extremities Extremities: pulses symmetrical, No edema Peripheral Pulses: within normal limits - Abdominal General gastrointestinal: Present: soft, non-tender, non-distended, normal bowel sounds Male genitourinary: Present: normal - Integumentary Integumentary: Present: clear, warm, dry - Musculoskeletal Musculoskeletal: gait normal, strength equal bilaterally - Psychiatric Psychiatric: appropriate mood/affect, intact judgment & insight - Neurologic Neurologic: CNII-XII intact, moves all extremities Plan Activity: no restrictions Weight Bearing Status: Full Weight Bearing Diet: low fat, low cholesterol, low salt Follow up with: KIT NICHOLS MD [Primary Care Provider] - 3-5 Days MARCO MARROQUIN MD [Staff Physician] - 7 Days Prescriptions: dilTIAZem CD [Cardizem CD] 240 mg PO QDAY #30 capsule Amiodarone [Cordarone 200 MG TAB] 200 mg PO QDAY #30 tablet Metoprolol [Lopressor TAB] 50 mg PO BID #60 tablet oxyCODONE /ACETAMINOPHEN [Percocet 5/325 mg] 1 tab PO Q6H PRN #10 tablet PRN Reason: Pain, Moderate (4-6) Dabigatran [Pradaxa] 150 mg PO BID #60 capsule Rosuvastatin Calcium 10 mg PO DAILY #30 tablet Chlorthalidone [Thalitone] 25 mg PO QDAY #30 tablet Lisinopril [Zestril TAB] 40 mg PO QDAY #30 tablet
--- NOTE | 2019-07-21 10:22 | Progress Note ---
Assessment and Plan Permanent Afib on pradaxa for oral anticoagulation Hypokalemia Acute renal failure -resolved Nonischemic cardiomyopathy EF 30-35% by echo 04/2019 Presence of AICD ([employer]) interrogation revealed multiple ICD shocks for rapid afib. No ventricular tachycardia arrhythmias were reported. Hypertension Prior CVA Recommendations: Continue diltiazem, metoprolol and amiodarone for rate control on permanent afib. Continue oral anticoagulation. Otherwise, the patient can discharged home. Patient advised to f/u with Dr Nino within 5-7 days. Subjective Date of service: 07/21/19 Interval history: Afib with a well controlled ventricular rate on telemetry. Objective Vital Signs Temp Pulse Resp BP Pulse Ox 07/21/19 08:27 98.2 F 78 18 111/75 97 07/20/19 23:35 98.1 F 87 18 100/54 99 07/20/19 22:50 91 H 07/20/19 19:55 98.1 F 66 17 127/92 97 07/20/19 19:25 98 07/20/19 15:56 16 98 07/20/19 11:00 65 142/98 07/20/19 10:58 65 142/98 07/20/19 10:57 73 142/98 97 - Physical Examination General: No Apparent Distress HEENT: Positive: PERRL Neck: Positive: trachea midline Cardiac: Positive: irregularly irregular Lungs: Positive: Decreased Breath Sounds Neuro: Positive: Weakness - Labs and Meds CBC 07/21/19 Range/Units 04:15 WBC TNR RBC TNR Hgb TNR Hct TNR Plt Count TNR Lymph # TNR Payne # TNR Eos # TNR Baso # TNR Comprehensive Metabolic Panel 07/21/19 Range/Units 04:15 Sodium 137 (137-145) mmol/L Potassium 3.2 L (3.6-5.0) mmol/L Chloride 98.4 (98-107) mmol/L Carbon Dioxide 23 D (22-30) mmol/L BUN 26 H (9-20) mg/dL Creatinine 1.3 (0.8-1.5) mg/dL Glucose 107 H (75-100) mg/dL Calcium 8.8 (8.4-10.2) mg/dL
[2019-07-21] MEDS: CARDIZEM CD PO SCH (11:25)
[2019-07-21] MEDS: LOPRESSOR PO SCH (11:25)
[2019-07-21] MEDS: PRADAXA PO SCH (11:25)
[2019-07-21] MEDS: ZESTRIL PO SCH (11:26)
[2019-07-21] MEDS: CORDARONE PO SCH (11:44)
[2019-07-21] MEDS: THALITONE PO SCH (11:44)
[2019-07-21] MEDS: DITROPAN PO SCH (11:44)
[2019-07-21] MEDS: SODIUM CHLORIDE FLUSH SYRINGE 10 ML IV SCH (11:47)
[2019-07-21] MEDS ORDERED: K-DUR PO ONE (12:23)
== END 2019-07-21 15:15 | disposition home or self-care (01) | DRG 308 ==
LOC: ED 14:59 → 4A 17:17
PROVIDERS: ADMIT Internal Medicine; ATTEND Hospitalist
PROC: 4B02XTZ Measurement of Cardiac Defibrillator, External Approach (ICD-10-PCS; principal; 2019-07-19)
DX: I48.2 Chronic atrial fibrillation (principal); I50.23 Acute on chronic systolic (congestive) heart failure; N17.0 Acute kidney failure with tubular necrosis; I69.351 Hemiplegia and hemiparesis following cerebral infarction affecting right dominant side; K21.9 Gastro-esophageal reflux disease without esophagitis; I42.0 Dilated cardiomyopathy; Y83.8 Other surgical procedures as the cause of abnormal reaction of the patient, or of later complication, without mention of misadventure at the time of the procedure; E83.42 Hypomagnesemia; E87.6 Hypokalemia; M19.90 Unspecified osteoarthritis, unspecified site; I11.0 Hypertensive heart disease with heart failure; E66.9 Obesity, unspecified; M10.9 Gout, unspecified; Y92.89 Other specified places as the place of occurrence of the external cause; Z79.01 Long term (current) use of anticoagulants; Z95.810 Presence of automatic (implantable) cardiac defibrillator; Z82.49 Family history of ischemic heart disease and other diseases of the circulatory system; Z79.899 Other long term (current) drug therapy; Z68.31 Body mass index [BMI] 31.0-31.9, adult; Z72.89 Other problems related to lifestyle; I69.320 Aphasia following cerebral infarction; I69.328 Other speech and language deficits following cerebral infarction
CPT/HCPCS: 36415; 71045; 80048; 80053; 80061; 81001; 82550; 83735; 84439; 84443; 84484; 85025; 85027; 85610; 87086; 93005; 93010; 96361; 96374; G0378; A9270-GY; J3475; J3480; J7040

== ENCOUNTER 2019-07-27 18:35 | Emergency (ER) | payer MEDICARE ==
--- NOTE | 2019-07-27 19:22 | XRay Report ---
CHEST 1 VIEW INDICATION / CLINICAL INFORMATION: Dyspnea. COMPARISON: 07/19/2019 FINDINGS: SUPPORT DEVICES: ICD on the left HEART / MEDIASTINUM: No significant abnormality. LUNGS / PLEURA: No significant pulmonary or pleural abnormality. No pneumothorax. ADDITIONAL FINDINGS: Interval development of mild bilateral dependent atelectasis. IMPRESSION: 1. Bibasilar subsegmental atelectasis. Signer Name: Robert Kenyon MD Signed: 07/27/2019 7:17 PM Workstation Name: [id number]
[2019-07-27 19:33] LABS: Basophils # (Auto) 0.1 K/mm3 (0.0-0.1); Eosinophils # (Auto) 0.1 K/mm3 (0.0-0.4); Eosinophils % (Auto) 2.4 % (0.0-4.3); Hematocrit 44.1 % (35.5-45.6); Hemoglobin 14.8 gm/dl (11.8-15.2); Lymphocytes % (Auto) 36.5 % (13.4-35.0); Mean Corpuscular HGB Conc 34 % (32-34); Mean Corpuscular Volume 86 fl (84-94); Monocytes # (Auto) 0.6 K/mm3 (0.0-0.8); Monocytes % (Auto) 10.3 % (0.0-7.3); Platelet Count 214 K/mm3 (140-440); Red Blood Count 5.16 M/mm3 (3.65-5.03); Red Cell Distribution Width 13.6 % (13.2-15.2)
[2019-07-27 19:58] LABS: Alanine Aminotransferase 25 units/L (7-56); Albumin 3.9 g/dL (3.9-5); BUN/Creatinine Ratio 15; Blood Urea Nitrogen 20 mg/dL (9-20); Calcium 9.4 mg/dL (8.4-10.2); Hemolysis Index 20
--- NOTE | 2019-07-27 21:28 | Emergency Department Report ---
ED General Adult HPI - General Chief complaint: Dyspnea/Respdistress Stated complaint: SOB/CHEST PAIN Time Seen by Provider: 07/27/19 21:09 Source: patient, family Mode of arrival: Ambulatory Limitations: No Limitations - History of Present Illness Initial comments: 54-year-old male with history of CVA, CHF, A. fib, defibrillator presents to ED with dizziness and shortness of breath. Patient was recently discharged approximately one week ago following an admission due to his defibrillator firing during an episode of A. fib with RVR. Patient states that since discharge, over the last week, he has been feeling dizziness with standing and dyspnea with exertion. Denies defibrillator firing since being discharged. Denies any significant lower extremity edema. Patient denies any chest pain. Only new medication the patient received with amiodarone, which she has been taking. Patient has not yet followed up with his concession attendant, Dr. Angela -: week(s) (1) Consistency: intermittent Improves with: rest Worsens with: movement, other (exertion) Associated Symptoms: cough, shortness of breath. denies: chest pain, f ever/chills, nausea/vomiting, syncope - Related Data Home Medications Medication Instructions Recorded Confirmed Last Taken Diltiazem HCl [Diltiazem 24Hr ER] 240 mg PO DAILY 10/08/15 07/19/19 07/19/19 Previous Rx's Medication Instructions Recorded Last Taken Type Amiodarone [Cordarone 200 MG TAB] 200 mg PO QDAY #30 tablet 07/21/19 Unknown Rx Chlorthalidone [Thalitone] 25 mg PO QDAY #30 tablet 07/21/19 Unknown Rx Dabigatran [Pradaxa] 150 mg PO BID #60 capsule 07/21/19 Unknown Rx Lisinopril [Zestril TAB] 40 mg PO QDAY #30 tablet 07/21/19 Unknown Rx Metoprolol [Lopressor TAB] 50 mg PO BID #60 tablet 07/21/19 Unknown Rx Rosuvastatin Calcium 10 mg PO DAILY #30 tablet 07/21/19 Unknown Rx dilTIAZem CD [Cardizem CD] 240 mg PO QDAY #30 capsule 07/21/19 Unknown Rx oxyCODONE /ACETAMINOPHEN [Percocet 1 tab PO Q6H PRN #10 tablet 07/21/19 Unknown Rx 5/325 mg] Allergies Allergy/AdvReac Type Severity Reaction Status Date / Time No Known Allergies Allergy Unverified 10/08/15 03:03 ED Review of Systems ROS: Stated complaint: SOB/CHEST PAIN Other details as noted in HPI Comment: All other systems reviewed and negative Constitutional: denies: chills, fever Respiratory: cough, shortness of breath Cardiovascular: denies: chest pain, palpitations Gastrointestinal: denies: nausea, vomiting Musculoskeletal: other (denies lower extremity edema or pain) Neurological: other (repors lightheadedness) ED Past Medical Hx - Past Medical History Previous Medical History?: Yes Hx Hypertension: Yes Hx CVA: Yes (right side deficits) Hx Congestive Heart Failure: Yes Hx Diabetes: No Hx Renal Disease: No Hx Arthritis: Yes (gout) Hx Seizures: No Hx Asthma: No Additional medical history: irregular heart beat - Surgical History Past Surgical History?: Yes Hx Pacemaker: Yes Hx Internal Defibrillator: Yes - Social History Smoking Status: Never Smoker Substance Use Type: None - Medications Home Medications: Home Medications Medication Instructions Recorded Confirmed Last Taken Type Diltiazem HCl [Diltiazem 24Hr ER] 240 mg PO DAILY 10/08/15 07/19/19 07/19/19 History Amiodarone [Cordarone 200 MG TAB] 200 mg PO QDAY #30 tablet 07/21/19 Unknown Rx Chlorthalidone [Thalitone] 25 mg PO QDAY #30 tablet 07/21/19 Unknown Rx Dabigatran [Pradaxa] 150 mg PO BID #60 capsule 07/21/19 Unknown Rx Lisinopril [Zestril TAB] 40 mg PO QDAY #30 tablet 07/21/19 Unknown Rx Metoprolol [Lopressor TAB] 50 mg PO BID #60 tablet 07/21/19 Unknown Rx Rosuvastatin Calcium 10 mg PO DAILY #30 tablet 07/21/19 Unknown Rx dilTIAZem CD [Cardizem CD] 240 mg PO QDAY #30 capsule 07/21/19 Unknown Rx oxyCODONE /ACETAMINOPHEN [Percocet 1 tab PO Q6H PRN #10 tablet 07/21/19 Unknown Rx 5/325 mg] ED Physical Exam - General Limitations: No Limitations General appearance: alert, in no apparent distress - Head Head exam: Present: atraumatic, normocephalic - Eye Eye exam: Present: normal appearance, PERRL, EOMI - ENT ENT exam: Present: mucous membranes moist - Neck Neck exam: Present: normal inspection - Respiratory Respiratory exam: Present: normal lung sounds bilaterally. Absent: respiratory distress, wheezes, rales - Cardiovascular Cardiovascular Exam: Present: regular rate, irregular rhythm - GI/Abdominal GI/Abdominal exam: Present: soft. Absent: distended, tenderness - Extremities Exam Extremities exam: Absent: pedal edema, calf tenderness - Neurological Exam Neurological exam: Present: alert, oriented X3, motor sensory deficit (baseline right sided weakness from previous CVA) - Psychiatric Psychiatric exam: Present: normal affect, normal mood - Skin Skin exam: Present: warm, dry, intact, normal color ED Course Vital Signs 07/27/19 07/27/19 07/27/19 18:41 21:28 21:30 Temperature 98.5 F 98.3 F Pulse Rate 63 74 78 Respiratory 16 18 26 H Rate Blood Pressure 138/79 116/72 Blood Pressure 128/76 [Left] O2 Sat by Pulse 98 97 98 Oximetry 07/27/19 22:00 Temperature Pulse Rate 71 Respiratory 24 Rate Blood Pressure 133/76 Blood Pressure [Left] O2 Sat by Pulse 99 Oximetry ED Medical Decision Making - Lab Data Result diagrams: 07/27/19 19:09 07/27/19 19:09 - EKG Data -: EKG Interpreted by [place] EKG shows normal: axis, QRS complexes, ST-T waves Rate: normal - EKG Data Interpretation: no acute changes, other (atrial fibrillation) - Radiology Data Radiology results: report reviewed, image reviewed - Medical Decision Making - hypokalemic, potassium given - slightly orthostatic vital signs - SOB reported however, pt in no resp distress, lungs clear on exam, O2 sats nml - BNP within nml range, no pulm edema or infiltrates on CXR - EKG shows no ST changes, chronic Afib, on Pradaxa, trop negative - pt reports symptoms present since last admission and following discharge - workup unremarkable, will d/c home at this time - return precautions given - outpt f/u advised Critical care attestation.: If time is entered above; I have spent that time in minutes in the direct care of this critically ill patient, excluding procedure time. ED Disposition Clinical Impression: Hypokalemia, Dyspnea Disposition: DC-01 TO HOME OR SELFCARE Is pt being admited?: No Condition: Stable Instructions: Hypokalemia (ED), Dyspnea (ED) Referrals: PRIMARY CARE, [Referring] - 3-5 Days Time of Disposition: 23:11
[2019-07-27] MEDS ORDERED: K-DUR PO ONE (21:54)
[2019-07-27 23:43] VITALS: BP 141/95
== END 2019-07-27 23:20 | disposition home or self-care (01) ==
LOC: ED 18:35
DX: E87.6 Hypokalemia (principal); R06.00 Dyspnea, unspecified; I11.0 Hypertensive heart disease with heart failure; I50.9 Heart failure, unspecified; M10.9 Gout, unspecified; Z86.73 Personal history of transient ischemic attack (TIA), and cerebral infarction without residual deficits; Z95.810 Presence of automatic (implantable) cardiac defibrillator; Z79.899 Other long term (current) drug therapy
CPT/HCPCS: 36415; 71046; 80053; 83880; 84484; 85025; 93005; 93010

== ENCOUNTER 2019-10-24 11:28 | Inpatient (IN) | payer MEDICARE ==
--- NOTE | 2019-10-24 11:35 | Emergency Department Report ---
Blank Doc - Documentation Documentation: 54-year-old male that presents with SOB and bilateral leg swellings. HX of ca rdiac. This initial assessment/diagnostic orders/clinical plan/treatment(s) is/are subject to change based on patient's health status, clinical progression and re- assessment by fellow clinical providers in the ED. Further treatment and workup at subsequent clinical providers discretion. Patient/guardians urged not to elope from the ED as their condition may be serious if not clinically assessed and managed. Initial orders include: 1- Patient sent to MAIN ED for further evaluation and treatment 2- labs 3- EKG 4- CXR
[2019-10-24 12:02] LABS: Basophils # (Auto) 0.1 K/mm3 (0.0-0.1); Basophils % (Auto) 1.2 % (0.0-1.8); Eosinophils # (Auto) 0.1 K/mm3 (0.0-0.4); Hematocrit 48.2 % (35.5-45.6); Hemoglobin 16.1 gm/dl (11.8-15.2); Lymphocytes # (Auto) 2.2 K/mm3 (1.2-5.4); Lymphocytes % (Auto) 33.3 % (13.4-35.0); Mean Corpuscular HGB Conc 33 % (32-34); Mean Corpuscular Volume 86 fl (84-94); Monocytes # (Auto) 0.6 K/mm3 (0.0-0.8); Monocytes % (Auto) 9.1 % (0.0-7.3); Platelet Count 239 K/mm3 (140-440); Red Blood Count 5.62 M/mm3 (3.65-5.03); Red Cell Distribution Width 13.8 % (13.2-15.2)
[2019-10-24 12:13] LABS: INR 1.36 (0.87-1.13); Partial Thromboplastin Time 40.7 Sec. (24.2-36.6)
[2019-10-24 12:24] LABS: Alanine Aminotransferase 44 units/L (7-56); Albumin 4.1 g/dL (3.9-5); BUN/Creatinine Ratio 16; Blood Urea Nitrogen 22 mg/dL (9-20); Calcium 9.2 mg/dL (8.4-10.2); Hemolysis Index 7
--- NOTE | 2019-10-24 12:40 | XRay Report ---
CHEST 2 VIEWS INDICATION: Chest Pain. COMPARISON: 08/10/2019 FINDINGS: Support devices: Stable unipolar cardiac lead. Heart: Within normal limits. Lungs/pleura: No acute air space or interstitial disease. No pneumothorax. Additional findings: None. IMPRESSION: 1. No acute findings. Signer Name: Buddy Smith MD Signed: 10/24/2019 12:35 PM Workstation Name: [id number]
--- NOTE | 2019-10-24 12:58 | Emergency Department Report ---
ED Shortness of Breath HPI - General Chief Complaint: Dyspnea/Respdistress Stated Complaint: SOB Time Seen by Provider: 10/24/19 11:34 Source: patient, family Mode of arrival: Wheelchair Limitations: Physical Limitation - History of Present Illness Initial Comments: 54-year-old -[place] male with extensive history of CVA right side deficits, hypertension, congestive heart failure presents to the emergency room stating he's been short of breath for several days. Patient is currently a phasic and does the talking for the patient. Patient has had a CVA in 2006. Patient is currently having no visible distress noted. Patient has been placed on Lasix 40 mg 10/13/2019. He's been short of breath for several weeks but today he felt he needed to come in to be evaluated. Family member denies any lower leg edema. It was reported that patient was weighting 207 after taking Lasix is down to 204. Patient does have an internal defibrillator has not fired. MD Complaint: shortness of breath Onset/Timin -: week(s) Pain Scale: 0 Known History Of: congestive heart failure Treatments Prior to Arrival: none - Related Data Home Oxygen Therapy: No Home Medications Medication Instructions Recorded Confirmed Last Taken Furosemide [Lasix TAB] 40 mg PO DAILY 10/24/19 10/24/19 Unknown Tolterodine Tartrate 4 mg PO DAILY 10/24/19 10/24/19 Unknown Previous Rx's Medication Instructions Recorded Last Taken Type Amiodarone [Cordarone 200 MG TAB] 200 mg PO QDAY #30 tablet 07/21/19 08/09/19 Rx Dabigatran [Pradaxa] 150 mg PO BID #60 capsule 07/21/19 08/09/19 Rx Lisinopril [Zestril TAB] 40 mg PO QDAY #30 tablet 07/21/19 08/09/19 Rx Metoprolol [Lopressor TAB] 50 mg PO BID #60 tablet 07/21/19 08/09/19 Rx Rosuvastatin Calcium 10 mg PO DAILY #30 tablet 07/21/19 08/09/19 Rx dilTIAZem CD [Cardizem CD] 240 mg PO QDAY #30 capsule 07/21/19 08/09/19 Rx Allergies Allergy/AdvReac Type Severity Reaction Status Date / Time No Known Allergies Allergy Unverified 10/08/15 03:03 ED Review of Systems ROS: Stated complaint: SOB Other details as noted in HPI Comment: All other systems reviewed and negative Constitutional: denies: chills, fever Eyes: denies: eye pain, eye discharge, vision change ENT: denies: ear pain, throat pain Respiratory: denies: cough, shortness of breath, wheezing ED Past Medical Hx - Past Medical History Previous Medical History?: Yes Hx Hypertension: Yes Hx CVA: Yes (right side deficits) Hx Congestive Heart Failure: Yes Hx Diabetes: No Hx Renal Disease: No Hx Arthritis: Yes (gout) Hx Seizures: No Hx Asthma: No Additional medical history: irregular heart beat - Surgical History Past Surgical History?: Yes Hx Pacemaker: Yes Hx Internal Defibrillator: Yes - Social History Smoking Status: Never Smoker Substance Use Type: None - Medications Home Medications: Home Medications Medication Instructions Recorded Confirmed Last Taken Type Amiodarone [Cordarone 200 MG TAB] 200 mg PO QDAY #30 tablet 07/21/19 10/24/19 08/09/19 Rx Dabigatran [Pradaxa] 150 mg PO BID #60 capsule 07/21/19 10/24/19 08/09/19 Rx Lisinopril [Zestril TAB] 40 mg PO QDAY #30 tablet 07/21/19 10/24/19 08/09/19 Rx Metoprolol [Lopressor TAB] 50 mg PO BID #60 tablet 07/21/19 10/24/19 08/09/19 Rx Rosuvastatin Calcium 10 mg PO DAILY #30 tablet 07/21/19 10/24/19 08/09/19 Rx dilTIAZem CD [Cardizem CD] 240 mg PO QDAY #30 capsule 07/21/19 10/24/19 08/09/19 Rx Furosemide [Lasix TAB] 40 mg PO DAILY 10/24/19 10/24/19 Unknown History Tolterodine Tartrate 4 mg PO DAILY 10/24/19 10/24/19 Unknown History ED Physical Exam - General Limitations: Physical Limitation General appearance: alert, in no apparent distress - Head Head exam: Present: atraumatic, normocephalic - Eye Eye exam: Present: normal appearance - ENT ENT exam: Present: mucous membranes moist - Neck Neck exam: Present: normal inspection - Respiratory Respiratory exam: Present: normal lung sounds bilaterally. Absent: respiratory distress - Cardiovascular Cardiovascular Exam: Present: regular rate, normal rhythm. Absent: systolic murmur, diastolic murmur, rubs, gallop - GI/Abdominal GI/Abdominal exam: Present: soft, normal bowel sounds. Absent: distended, tenderness, guarding - Extremities Exam Extremities exam: Absent: pedal edema - Back Exam Back exam: Present: normal inspection. Absent: tenderness - Neurological Exam Neurological exam: Present: alert - Expanded Neurological Exam Expanded Speech: Present: total aphasia Cranial nerves: Gag Reflex: Normal, Tongue Deviation: Normal Best Eye Response ([place]): (4) open spontaneously Best Verbal Response ([place]): (1) no verbal response [place] Total: 5 - Psychiatric Psychiatric exam: Present: normal affect, normal mood - Skin Skin exam: Present: warm, dry, intact, normal color. Absent: rash ED Course Vital Signs 10/24/19 13:04 Temperature 99.1 F Pulse Rate 87 Respiratory 16 Rate Blood Pressure 156/94 [Left] O2 Sat by Pulse 97 Oximetry ED Medical Decision Making - Lab Data Result diagrams: 10/24/19 11:46 10/24/19 11:46 - EKG Data Rate: normal - Radiology Data Radiology results: report reviewed Patient: NICK WILKINS MR#: [id number] 4 : 1965 Acct:[id number] Age/Sex: 54 / M ADM Date: 10/24/19 Loc: ED Attending Dr: Ordering Physician: DAVE VALDES NP Date of Service: 10/24/19 Procedure(s): XR chest routine 2V Accession Number(s): [id number] cc: DAVE VALDES NP Fluoro Time In Minutes: CHEST 2 VIEWS INDICATION: Chest Pain. COMPARISON: 08/10/2019 FINDINGS: Support devices: Stable unipolar cardiac lead. Heart: Within normal limits. Lungs/pleura: No acute air space or interstitial disease. No pneumothorax. Additional findings: None. IMPRESSION: 1. No acute findings. Signer Name: Buddy Smith MD Signed: 10/24/2019 12:35 PM Workstation Name: [id number] Transcribed By: JESSY Dictated By: Buddy Smith MD Electronically Authenticated By: Buddy Smith MD Signed Date/Time: 10/24/19 1235 DD/ 1234 TD/TT: - Medical Decision Making 54-year-old -[place] male with extensive history of CVA right side deficits, hypertension, congestive heart failure presents to the emergency room stating he's been short of breath for several days. Patient is currently a phasic and does the talking for the patient. Patient has had a CVA in 2006. Patient is currently having no visible distress noted. Patient has been placed on Lasix 40 mg 10/13/2019. He's been short of breath for several weeks but today he felt he needed to come in to be evaluated. Family member denies any lower leg edema. It was reported that patient was weighting 207 after taking Lasix is down to 204. Patient does have an internal defibrillator has not fired. Critical care attestation.: If time is entered above; I have spent that time in minutes in the direct care of this critically ill patient, excluding procedure time. ED Disposition Clinical Impression: Atrial fibrillation with RVR Condition: Stable Referrals: PRIMARY CARE, [Referring] - 3-5 Days
--- NOTE | 2019-10-24 18:07 | History and Physical Report ---
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 Patient has orthopnea. Patient has shortness of breath on minimal exertion. Has class IV NYHA symptoms. No palpitations. No chest pain. Patient was started on Lasix several or 10 days ago with no relief of symptoms. Worsening symptoms over the last 1 week with orthopnea and paroxysmal nocturnal dyspnea. Also shortness of breath with very minimal exertion. Past Medical History Previous Medical History?: Yes Hypertension: Yes CVA: Yes (right side deficits) Congestive Heart Failure: Yes Arthritis: Yes (gout) Additional medical history: irregular heart beat Surgical History Past Surgical History?: Yes Pacemaker: Yes Internal Defibrillator: Yes Social History Smoking Status: Never Smoker Substance Use Type: None Family History Htn Medications Home Medications: Home Medications Medication Instructions Recorded Confirmed Last Taken Type Amiodarone [Cordarone 200 MG TAB] 200 mg PO QDAY #30 tablet 07/21/19 10/24/19 08/09/19 Rx Dabigatran [Pradaxa] 150 mg PO BID #60 capsule 07/21/19 10/24/19 08/09/19 Rx Lisinopril [Zestril TAB] 40 mg PO QDAY #30 tablet 07/21/19 10/24/19 08/09/19 Rx Metoprolol [Lopressor TAB] 50 mg PO BID #60 tablet 07/21/19 10/24/19 08/09/19 Rx Rosuvastatin Calcium 10 mg PO DAILY #30 tablet 07/21/19 10/24/19 08/09/19 Rx dilTIAZem CD [Cardizem CD] 240 mg PO QDAY #30 capsule 07/21/19 10/24/19 08/09/19 Rx Furosemide [Lasix TAB] 40 mg PO DAILY 10/24/19 10/24/19 Unknown History Tolterodine Tartrate 4 mg PO DAILY 10/24/19 10/24/19 Unknown History Review of Systems ROS: Stated complaint: SOB Other details as noted in HPI Comment: All other systems reviewed and negative Constitutional: denies: chills, fever Eyes: denies: eye pain, eye discharge, vision change ENT: denies: ear pain, throat pain Respiratory: denies: cough, shortness of breath, wheezing Medications and Allergies Allergies Allergy/AdvReac Type Severity Reaction Status Date / Time No Known Allergies Allergy Unverified 10/08/15 03:03 Home Medications Medication Instructions Recorded Confirmed Last Taken Type Amiodarone [Cordarone 200 MG TAB] 200 mg PO QDAY #30 tablet 07/21/19 10/24/19 08/09/19 Rx Dabigatran [Pradaxa] 150 mg PO BID #60 capsule 07/21/19 10/24/19 08/09/19 Rx Lisinopril [Zestril TAB] 40 mg PO QDAY #30 tablet 07/21/19 10/24/19 08/09/19 Rx Metoprolol [Lopressor TAB] 50 mg PO BID #60 tablet 07/21/19 10/24/19 08/09/19 Rx Rosuvastatin Calcium 10 mg PO DAILY #30 tablet 07/21/19 10/24/19 08/09/19 Rx dilTIAZem CD [Cardizem CD] 240 mg PO QDAY #30 capsule 07/21/19 10/24/19 08/09/19 Rx Furosemide [Lasix TAB] 40 mg PO DAILY 10/24/19 10/24/19 Unknown History Tolterodine Tartrate 4 mg PO DAILY 10/24/19 10/24/19 Unknown History Exam - Constitutional Vitals: Temp Pulse Resp BP Pulse Ox 99.1 F 73 23 160/93 99 10/24/19 13:04 10/24/19 17:00 10/24/19 17:00 10/24/19 17:00 10/24/19 17:00 General appearance: Present: mild distress, well-nourished - EENT Eyes: Present: PERRL ENT: hearing intact, clear oral mucosa - Neck Neck: Present: supple, normal ROM - Respiratory Respiratory effort: normal Respiratory: bilateral: rales (scattered) - Cardiovascular Heart rate: 78 Rhythm: irregularly irregular Heart Sounds: Present: S1 & S2. Absent: rub, click - Extremities Extremities: no ischemia, pulses intact, pulses symmetrical, No edema Peripheral Pulses: within normal limits - Abdominal General gastrointestinal: Present: soft, non-tender, non-distended, normal bowel sounds Male genitourinary: Present: normal - Rectal Rectal Exam: deferred - Integumentary Integumentary: Present: clear, warm, dry - Musculoskeletal Musculoskeletal: strength equal bilaterally, right sided weakness - Psychiatric Psychiatric: appropriate mood/affect, intact judgment & insight - Neurologic Neurologic: CNII-XII intact, focal deficits (right-sided hemiplegia, aphasia) - Allied Health Allied health notes reviewed: nursing, social work Results - Labs CBC & Chem 7: 10/24/19 11:46 10/24/19 11:46 Labs: Laboratory Last Values WBC 6.7 K/mm3 (4.5-11.0) 10/24/19 11:46 RBC 5.62 M/mm3 (3.65-5.03) H 10/24/19 11:46 Hgb 16.1 gm/dl (11.8-15.2) H 10/24/19 11:46 Hct 48.2 % (35.5-45.6) H 10/24/19 11:46 MCV 86 fl (84-94) 10/24/19 11:46 MCH 29 pg (28-32) 10/24/19 11:46 MCHC 33 % (32-34) 10/24/19 11:46 RDW 13.8 % (13.2-15.2) 10/24/19 11:46 Plt Count 239 K/mm3 (140-440) 10/24/19 11:46 Lymph % (Auto) 33.3 % (13.4-35.0) 10/24/19 11:46 [place] % (Auto) 9.1 % (0.0-7.3) H 10/24/19 11:46 Eos % (Auto) 2.0 % (0.0-4.3) 10/24/19 11:46 Baso % (Auto) 1.2 % (0.0-1.8) 10/24/19 11:46 Lymph # 2.2 K/mm3 (1.2-5.4) 10/24/19 11:46 [place] # 0.6 K/mm3 (0.0-0.8) 10/24/19 11:46 Eos # 0.1 K/mm3 (0.0-0.4) 10/24/19 11:46 Baso # 0.1 K/mm3 (0.0-0.1) 10/24/19 11:46 Seg Neutrophils % 54.4 % (40.0-70.0) 10/24/19 11:46 Seg Neutrophils # 3.7 K/mm3 (1.8-7.7) 10/24/19 11:46 PT 16.6 Sec. (12.2-14.9) H 10/24/19 11:46 INR 1.36 (0.87-1.13) H 10/24/19 11:46 APTT 40.7 Sec. (24.2-36.6) H 10/24/19 11:46 D-Dimer < 135.00 ng/mlDDU (0-234) 10/24/19 14:10 Sodium 144 mmol/L (137-145) 10/24/19 11:46 Potassium 3.1 mmol/L (3.6-5.0) L 10/24/19 11:46 Chloride 97.6 mmol/L (98-107) L 10/24/19 11:46 Carbon Dioxide 29 mmol/L (22-30) 10/24/19 11:46 Anion Gap 21 mmol/L 10/24/19 11:46 BUN 22 mg/dL (9-20) H 10/24/19 11:46 Creatinine 1.4 mg/dL (0.8-1.5) 10/24/19 11:46 Estimated GFR > 60 ml/min 10/24/19 11:46 BUN/Creatinine Ratio 16 % 10/24/19 11:46 Glucose 124 mg/dL (75-100) H 10/24/19 11:46 Calcium 9.2 mg/dL (8.4-10.2) 10/24/19 11:46 Total Bilirubin 0.70 mg/dL (0.1-1.2) 10/24/19 11:46 AST 29 units/L (5-40) 10/24/19 11:46 ALT 44 units/L (7-56) 10/24/19 11:46 Alkaline Phosphatase 51 units/L (35-129) 10/24/19 11:46 Troponin T < 0.010 ng/mL (0.00-0.029) 10/24/19 14:10 NT-Pro-B Natriuret Pep 1478 pg/mL (0-900) H 10/24/19 11:46 Total Protein 7.6 g/dL (6.3-8.2) 10/24/19 11:46 Albumin 4.1 g/dL (3.9-5) 10/24/19 11:46 Albumin/Globulin Ratio 1.2 % 10/24/19 11:46 Short CBC 10/24/19 Range/Units 11:46 WBC 6.7 (4.5-11.0) K/mm3 Hgb 16.1 H (11.8-15.2) gm/dl Hct 48.2 H (35.5-45.6) % Plt Count 239 (140-440) K/mm3 BMP 10/24/19 11:46 Sodium 144 Potassium 3.1 L Chloride 97.6 L Carbon Dioxide 29 BUN 22 H Creatinine 1.4 Glucose 124 H Calcium 9.2 Cardiac Enzymes 10/24/19 10/24/19 Range/Units 11:46 14:10 Troponin T < 0.010 < 0.010 (0.00-0.029) ng/mL Liver Function 10/24/19 Range/Units 11:46 Total Bilirubin 0.70 (0.1-1.2) mg/dL AST 29 (5-40) units/L ALT 44 (7-56) units/L Alkaline Phosphatase 51 (35-129) units/L Albumin 4.1 (3.9-5) g/dL - Imaging and Cardiology EKG: report reviewed Chest x-ray: report reviewed (no acute findings, defibrillator on the left side of the chest) Assessment and Plan Advance Directives: Yes (full code) VTE prophylaxis?: Chemical Plan of care discussed with patient/family: Yes - Patient Problems (1) Acute exacerbation of CHF (congestive heart failure) Current Visit: Yes Status: Acute Qualifiers: Heart failure type: combined systolic and diastolic Qualified Code(s): I50.43 - Acute on chronic combined systolic (congestive) and diastolic (congestive) heart failure Plan to address problem: Patient is short of breath on very minimal exertion and orthopnea and paroxysmal nocturnal dyspnea for which he needs admission Patient is here on IV Lasix every 12 Echocardiogram for ejection fraction Daily intake and output Daily weights Cardiology consult Patient follows with Dr. Nnio (2) Atrial fibrillation Current Visit: Yes Status: Chronic Qualifiers: Atrial fibrillation type: longstanding persistent Qualified Code(s): I48.11 - Longstanding persistent atrial fibrillation Plan to address problem: Continue Pradaxa and Amiodarone (3) Hypokalemia Current Visit: No Status: Acute Plan to address problem: Potassium supplemented (4) Hypertension Current Visit: Yes Status: Chronic Qualifiers: Hypertension type: essential hypertension Qualified Code(s): I10 - Essential (primary) hypertension Plan to address problem: Continue antihypertensives (5) OAB (overactive bladder) Current Visit: Yes Status: Chronic Plan to address problem: Continue Detrol (6) Hyperlipidemia Current Visit: Yes Status: Chronic Qualifiers: Hyperlipidemia type: mixed hyperlipidemia Qualified Code(s): E78.2 - Mixed hyperlipidemia Plan to address problem: Continue statins (7) Presence of combination internal cardiac defibrillator (ICD) and pacemaker Current Visit: Yes Status: Chronic Plan to address problem: No electrical discharges (8) DVT prophylaxis Current Visit: No Status: Acute Plan to address problem: On heparin and GI prophylaxis
[2019-10-24] MEDS ORDERED: HYDROmorphone 1 MG/1 ML INJ IV PRN (18:41)
[2019-10-24] MEDS ORDERED: ACETAMINOPHEN 325 MG TAB PO PRN (18:41)
[2019-10-24] MEDS ORDERED: ONDANSETRON 4 MG/2 ML INJ IV PRN (18:41)
[2019-10-24] MEDS ORDERED: TOLTERODINE TARTRATE 4 MG PO SCH (18:45)
[2019-10-24] MEDS ORDERED: NON-FORMULARY EACH (Rosuvastatin Calcium [Rosuvastatin Calcium] 10 MG) PO SCH (18:45)
[2019-10-24] MEDS ORDERED: ACETAMINOPHEN 325 MG TAB ONE (20:00)
[2019-10-24] MEDS: LISINOPRIL 40 MG TAB PO SCH (23:10)
[2019-10-24] MEDS: DABIGATRAN 150 MG CAP PO SCH (23:12)
[2019-10-24] MEDS: METOPROLOL TARTRATE 50 MG TAB PO SCH (23:13)
[2019-10-24] MEDS: dilTIAZem CD 240 MG CAP PO SCH (23:14)
[2019-10-24] MEDS: FAMOTIDINE 20 MG TAB PO SCH (23:14)
[2019-10-24] MEDS: AMIODARONE 200 MG TAB PO SCH (23:15)
[2019-10-25] MEDS: oxyCODONE /ACETAMINOPHEN 5-325MG TAB PO PRN (04:11)
[2019-10-25] MEDS ORDERED: hydrALAZINE 20 MG/1 ML INJ ONE (08:20)
[2019-10-25 08:46] LABS: Basophils # (Auto) 0.1 K/mm3 (0.0-0.1); Eosinophils # (Auto) 0.2 K/mm3 (0.0-0.4); Eosinophils % (Auto) 4.2 % (0.0-4.3); Hematocrit 47.2 % (35.5-45.6); Hemoglobin 15.7 gm/dl (11.8-15.2); Lymphocytes # (Auto) 1.5 K/mm3 (1.2-5.4); Lymphocytes % (Auto) 32.9 % (13.4-35.0); Mean Corpuscular HGB Conc 33 % (32-34); Mean Corpuscular Volume 87 fl (84-94); Monocytes # (Auto) 0.5 K/mm3 (0.0-0.8); Monocytes % (Auto) 10.6 % (0.0-7.3); Platelet Count 195 K/mm3 (140-440); Red Blood Count 5.44 M/mm3 (3.65-5.03); Red Cell Distribution Width 13.8 % (13.2-15.2)
[2019-10-25] MEDS ORDERED: hydrALAZINE 20 MG/1 ML INJ IV ONE (09:00)
[2019-10-25 09:17] LABS: Alanine Aminotransferase 37 units/L (7-56); Albumin 3.5 g/dL (3.9-5); BUN/Creatinine Ratio 20; Blood Urea Nitrogen 24 mg/dL (9-20); Calcium 8.6 mg/dL (8.4-10.2); Hemolysis Index 20
[2019-10-25] MEDS: OXYBUTYNIN 5 MG TAB PO SCH (09:40)
[2019-10-25] MEDS: LISINOPRIL 40 MG TAB PO SCH (09:40)
[2019-10-25] MEDS: AMIODARONE 200 MG TAB PO SCH (09:40)
[2019-10-25] MEDS: FAMOTIDINE 20 MG TAB PO SCH ×2 (09:40→22:08)
[2019-10-25] MEDS: dilTIAZem CD 240 MG CAP PO SCH (09:41)
[2019-10-25] MEDS: METOPROLOL TARTRATE 50 MG TAB PO SCH ×2 (09:42→22:08)
[2019-10-25] MEDS: DABIGATRAN 150 MG CAP PO SCH ×2 (09:42→22:07)
--- NOTE | 2019-10-25 11:32 | Consultation ---
History of Present Illness Consult date: 10/25/19 Consult reason: congestive heart failure History of present illness: This is a 54-year old male with a cardiac history of nonischemic cardiomyopathy and has an indwelling cardiac defibrillator. A follow up outpatient echocardiogram in April reports an LVEF 30-35%. Patient also, has permanent atrial fibrillation and is on pradaxa for anticoagulation. Patient presents with shortness of breath, admitted with CHF exacerbation secondary to dietary indiscretions. He denies chest pain and palpitations. There is no lower extremity edema. He denies AICD discharge. A 12 lead ECG is atrial fibrillation with a well controlled ventricular rate. Medications and Allergies Allergies Allergy/AdvReac Type Severity Reaction Status Date / Time No Known Allergies Allergy Unverified 10/08/15 03:03 Home Medications Medication Instructions Recorded Confirmed Last Taken Type Amiodarone [Cordarone 200 MG TAB] 200 mg PO QDAY #30 tablet 07/21/19 10/24/19 08/09/19 Rx Dabigatran [Pradaxa] 150 mg PO BID #60 capsule 07/21/19 10/24/19 08/09/19 Rx Lisinopril [Zestril TAB] 40 mg PO QDAY #30 tablet 07/21/19 10/24/19 08/09/19 Rx Metoprolol [Lopressor TAB] 50 mg PO BID #60 tablet 07/21/19 10/24/19 08/09/19 Rx Rosuvastatin Calcium 10 mg PO DAILY #30 tablet 07/21/19 10/24/19 08/09/19 Rx dilTIAZem CD [Cardizem CD] 240 mg PO QDAY #30 capsule 07/21/19 10/24/19 08/09/19 Rx Furosemide [Lasix TAB] 40 mg PO DAILY 10/24/19 10/24/19 Unknown History Tolterodine Tartrate 4 mg PO DAILY 10/24/19 10/24/19 Unknown History Active Meds: Active Medications Acetaminophen (Tylenol) 650 mg PO Q4H PRN PRN Reason: Pain MILD(1-3)/Fever >100.5/[place] Last Admin: 10/24/19 20:05 Dose: 650 mg Documented by: Amiodarone HCl (Cordarone) 200 mg PO QDAY [facility] Last Admin: 10/25/19 09:40 Dose: 200 mg Documented by: Atorvastatin Calcium (Lipitor) 20 mg PO QDAY@2200 [facility] Last Admin: 10/24/19 23:24 Dose: 20 mg Documented by: Dabigatran (Pradaxa) 150 mg PO BID [facility]; Protocol Last Admin: 10/25/19 09:42 Dose: 150 mg Documented by: Diltiazem HCl (Cardizem Cd) 240 mg PO QDAY [facility] Last Admin: 10/25/19 09:41 Dose: 240 mg Documented by: Famotidine (Pepcid) 20 mg PO BID [facility] Last Admin: 10/25/19 09:40 Dose: 20 mg Documented by: Hydromorphone HCl (Dilaudid) 0.5 mg IV Q3H PRN PRN Reason: Pain , Severe (7-10) Lisinopril (Zestril) 40 mg PO QDAY [facility] Last Admin: 10/25/19 09:40 Dose: 40 mg Documented by: Metoprolol Tartrate (Metoprolol) 50 mg PO BID [facility] Last Admin: 10/25/19 09:42 Dose: 50 mg Documented by: Ondansetron HCl (Zofran) 4 mg IV Q3H PRN PRN Reason: Nausea And Vomiting Oxybutynin Chloride (Ditropan) 10 mg PO DAILY [facility] Last Admin: 10/25/19 09:40 Dose: 10 mg Documented by: Oxycodone/Acetaminophen (Percocet 5/325) 1 tab PO Q6H PRN PRN Reason: Pain, Moderate (4-6) Last Admin: 10/25/19 04:11 Dose: 1 tab Documented by: Sodium Chloride (Sodium Chloride Flush Syringe 10 Ml) 10 ml IV BID [facility] Last Admin: 10/25/19 09:42 Dose: 10 ml Documented by: Sodium Chloride (Sodium Chloride Flush Syringe 10 Ml) 10 ml IV PRN PRN PRN Reason: LINE FLUSH Physical Examination Vital Signs Pulse Resp BP Pulse Ox 78 17 136/81 96 10/24/19 13:01 10/24/19 13:01 10/24/19 13:01 10/24/19 13:01 General appearance: no acute distress HEENT: Positive: PERRL Neck: Positive: trachea midline Cardiac: Positive: irregularly irregular Lungs: Positive: Decreased Breath Sounds Extremities: Absent: edema Results 10/25/19 07:52 10/25/19 07:52 Cardiac Enzymes 10/24/19 10/25/19 Range/Units 11:46 07:52 AST 29 24 (5-40) units/L Coagulation 10/24/19 Range/Units 11:46 PT 16.6 H (12.2-14.9) Sec. INR 1.36 H (0.87-1.13) APTT 40.7 H (24.2-36.6) Sec. CBC 10/24/19 10/25/19 Range/Units 11:46 07:52 WBC 6.7 4.6 (4.5-11.0) K/mm3 RBC 5.62 H 5.44 H (3.65-5.03) M/mm3 Hgb 16.1 H 15.7 H (11.8-15.2) gm/dl Hct 48.2 H 47.2 H (35.5-45.6) % Plt Count 239 195 (140-440) K/mm3 Lymph # 2.2 1.5 (1.2-5.4) K/mm3 [place] # 0.6 0.5 (0.0-0.8) K/mm3 Eos # 0.1 0.2 (0.0-0.4) K/mm3 Baso # 0.1 0.1 (0.0-0.1) K/mm3 Comprehensive Metabolic Panel 10/24/19 10/25/19 Range/Units 11:46 07:52 Sodium 144 142 (137-145) mmol/L Potassium 3.1 L 3.0 L (3.6-5.0) mmol/L Chloride 97.6 L 100.2 (98-107) mmol/L Carbon Dioxide 29 25 (22-30) mmol/L BUN 22 H 24 H (9-20) mg/dL Creatinine 1.4 1.2 (0.8-1.5) mg/dL Glucose 124 H 99 (75-100) mg/dL Calcium 9.2 8.6 (8.4-10.2) mg/dL AST 29 24 (5-40) units/L ALT 44 37 (7-56) units/L Alkaline Phosphatase 51 43 (35-129) units/L Total Protein 7.6 6.4 (6.3-8.2) g/dL Albumin 4.1 3.5 L (3.9-5) g/dL Assessment and Plan Acute systolic heart failure s/t dietary indiscretions Permanent Afib, rate controlled on pradaxa for oral anticoagulation Nonischemic cardiomyopathy EF 30-35% by outpatient echo 04/2019 Presence of AICD ([employer]) Hypertension Prior CVA with aphasia Recommendations: Advised sodium/fluid restrictions. Continue medical therapy for systolic heart failure and chronic atrial fibrillation.
[2019-10-25] MEDS ORDERED: hydrALAZINE 20 MG/1 ML INJ IV PRN (12:36)
--- NOTE | 2019-10-25 12:50 | Progress Note ---
Assessment and Plan Assessment and plan: --Right foot pain; medications, extremity x-ray right foot supportive care --Accelerated Hypertension Current Visit: Yes Status: Chronic Continue current antihypertensives Add IV and oral hydralazine -- Acute exacerbation of CHF (congestive heart failure) Current Visit: Yes Status: Acute Continue heart failure medications Input and output monitoring Cardiology consult, low-sodium diet fluid restriction ejection fraction 30-35% --Atrial fibrillation; rate controlled Current Visit: Yes Status: Chronic Continue Pradaxa and Amiodarone -- Hypokalemia Current Visit: No Status: Acute Dependent spelled protocol Monitor Potassium levels --H/O CVA right hemiparesis and aphasia supportive care, PT is needed --OAB (overactive bladder) Current Visit: Yes Status: Chronic Continue Detrol -- Dyslipidemia Current Visit: Yes Status: Chronic Continue statins -- Presence of ICD Current Visit: Yes Status: Chronic No electrical discharges -- DVT prophylaxis Current Visit: No Status: Acute On heparin and GI prophylaxis History Interval history: Patient seen and examined medical records reviewed. Complaints of flank pain, has history of CVA with right-sided hemiparesis and Dysarthria Denies chest pain or shortness of breath Patient's is at the bedside Vital signs reviewed Hospitalist Physical - Constitutional Vitals: Temp Pulse Resp BP Pulse Ox 97.3 F L 80 20 160/108 95 10/25/19 03:20 10/25/19 12:15 10/25/19 04:11 10/25/19 12:15 10/25/19 12:15 General appearance: Present: no acute distress, well-nourished - EENT Eyes: Present: PERRL, EOM intact - Neck Neck: Present: supple, normal ROM - Respiratory Respiratory effort: normal Respiratory: bilateral: diminished, negative: rales, rhonchi, wheezing - Cardiovascular Rhythm: regular Heart Sounds: Present: S1 & S2 - Extremities Extremities: no ischemia, abnormal (right foot mild swelling and tenderness) Extremity abnormal: edema - Abdominal General gastrointestinal: soft, non-tender, non-distended, normal bowel sounds - Integumentary Integumentary: Present: clear, warm - Psychiatric Psychiatric: appropriate mood/affect, other (soft tissue) - Neurologic Neurologic: other (residual right-sided hemiparesis) Results - Labs CBC & Chem 7: 10/25/19 07:52 10/25/19 07:52 Labs: Laboratory Last Values WBC 4.6 K/mm3 (4.5-11.0) 10/25/19 07:52 RBC 5.44 M/mm3 (3.65-5.03) H 10/25/19 07:52 Hgb 15.7 gm/dl (11.8-15.2) H 10/25/19 07:52 Hct 47.2 % (35.5-45.6) H 10/25/19 07:52 MCV 87 fl (84-94) 10/25/19 07:52 MCH 29 pg (28-32) 10/25/19 07:52 MCHC 33 % (32-34) 10/25/19 07:52 RDW 13.8 % (13.2-15.2) 10/25/19 07:52 Plt Count 195 K/mm3 (140-440) 10/25/19 07:52 Lymph % (Auto) 32.9 % (13.4-35.0) 10/25/19 07:52 [place] % (Auto) 10.6 % (0.0-7.3) H 10/25/19 07:52 Eos % (Auto) 4.2 % (0.0-4.3) 10/25/19 07:52 Baso % (Auto) 2.0 % (0.0-1.8) H 10/25/19 07:52 Lymph # 1.5 K/mm3 (1.2-5.4) 10/25/19 07:52 [place] # 0.5 K/mm3 (0.0-0.8) 10/25/19 07:52 Eos # 0.2 K/mm3 (0.0-0.4) 10/25/19 07:52 Baso # 0.1 K/mm3 (0.0-0.1) 10/25/19 07:52 Seg Neutrophils % 50.3 % (40.0-70.0) 10/25/19 07:52 Seg Neutrophils # 2.3 K/mm3 (1.8-7.7) 10/25/19 07:52 PT 16.6 Sec. (12.2-14.9) H 10/24/19 11:46 INR 1.36 (0.87-1.13) H 10/24/19 11:46 APTT 40.7 Sec. (24.2-36.6) H 10/24/19 11:46 D-Dimer < 135.00 ng/mlDDU (0-234) 10/24/19 14:10 Sodium 142 mmol/L (137-145) 10/25/19 07:52 Potassium 3.0 mmol/L (3.6-5.0) L 10/25/19 07:52 Chloride 100.2 mmol/L (98-107) 10/25/19 07:52 Carbon Dioxide 25 mmol/L (22-30) 10/25/19 07:52 Anion Gap 20 mmol/L 10/25/19 07:52 BUN 24 mg/dL (9-20) H 10/25/19 07:52 Creatinine 1.2 mg/dL (0.8-1.5) 10/25/19 07:52 Estimated GFR > 60 ml/min 10/25/19 07:52 BUN/Creatinine Ratio 20 % 10/25/19 07:52 Glucose 99 mg/dL (75-100) 10/25/19 07:52 Hemoglobin A1c 5.7 % (4-6) 10/24/19 Unknown Calcium 8.6 mg/dL (8.4-10.2) 10/25/19 07:52 Total Bilirubin 0.60 mg/dL (0.1-1.2) 10/25/19 07:52 AST 24 units/L (5-40) 10/25/19 07:52 ALT 37 units/L (7-56) 10/25/19 07:52 Alkaline Phosphatase 43 units/L (35-129) 10/25/19 07:52 Troponin T < 0.010 ng/mL (0.00-0.029) 10/24/19 14:10 NT-Pro-B Natriuret Pep 1478 pg/mL (0-900) H 10/24/19 11:46 Total Protein 6.4 g/dL (6.3-8.2) 10/25/19 07:52 Albumin 3.5 g/dL (3.9-5) L 10/25/19 07:52 Albumin/Globulin Ratio 1.2 % 10/25/19 07:52 Active Medications - Current Medications Current Medications: Generic Name Dose Route Start Last Admin Trade Name Freq PRN Reason Stop Dose Admin Acetaminophen 650 mg 10/24/19 18:41 10/24/19 20:05 Tylenol PO 650 mg Q4H PRN Administration Pain MILD(1-3)/Fever >100.5/[place] Amiodarone HCl 200 mg 10/24/19 19:00 10/25/19 09:40 Cordarone PO 200 mg QDAY [facility] Administration Atorvastatin Calcium 20 mg 10/24/19 23:00 10/24/19 23:24 Lipitor PO 20 mg QDAY@2200 [facility] Administration Dabigatran 150 mg 10/24/19 22:00 10/25/19 09:42 Pradaxa PO 150 mg BID [facility] Administration Protocol Diltiazem HCl 240 mg 10/24/19 19:00 10/25/19 09:41 Cardizem Cd PO 240 mg QDAY [facility] Administration Famotidine 20 mg 10/24/19 22:00 10/25/19 09:40 Pepcid PO 20 mg BID [facility] Administration Furosemide 40 mg 10/25/19 18:00 Lasix IV 0600,1800 [facility] Hydralazine HCl 25 mg 10/25/19 14:00 Apresoline PO Q8HR [facility] Hydralazine HCl 10 mg 10/25/19 12:36 Apresoline IV Q4HR PRN Hypertension Hydromorphone HCl 0.5 mg 10/24/19 18:41 Dilaudid IV Q3H PRN Pain , Severe (7-10) Lisinopril 40 mg 10/24/19 19:00 10/25/19 09:40 Zestril PO 40 mg QDAY [facility] Administration Metoprolol Tartrate 50 mg 10/24/19 22:00 10/25/19 09:42 Metoprolol PO 50 mg BID [facility] Administration Ondansetron HCl 4 mg 10/24/19 18:41 Zofran IV Q3H PRN Nausea And Vomiting Oxybutynin Chloride 10 mg 10/25/19 10:00 10/25/19 09:40 Ditropan PO 10 mg DAILY [facility] Administration Oxycodone/Acetaminophen 1 tab 10/24/19 18:41 10/25/19 04:11 Percocet 5/325 PO 1 tab Q6H PRN Administration Pain, Moderate (4-6) Potassium Chloride 40 meq 10/25/19 13:00 K-Dur PO 10/25/19 17:01 Q4H [facility] Sodium Chloride 10 ml 10/24/19 22:00 10/25/19 09:42 Sodium Chloride Flush Syringe 10 Ml IV 10 ml BID [facility] Administration Sodium Chloride 10 ml 10/24/19 18:41 Sodium Chloride Flush Syringe 10 Ml IV PRN PRN LINE FLUSH
[2019-10-25] MEDS: SPIRONOLACTONE 25 MG TAB PO SCH (14:58)
[2019-10-25] MEDS: POTASSIUM CHLORIDE ER 20 MEQ TAB PO SCH ×2 (14:59→18:30)
[2019-10-25] MEDS: hydrALAZINE 25 MG TAB PO SCH ×2 (14:59→22:07)
--- NOTE | 2019-10-25 15:02 | XRay Report ---
RIGHT FOOT, 2 VIEWS INDICATION: pain and swelling. COMPARISON: None. IMPRESSION: Limited exam. Mild distal soft tissue swelling is suspected. Mild periarticular osteope franc is identified. There is no obvious fracture, bone lesion or bony destruction. No erosive joint pa thology is detected. If further evaluation is needed consider additional views or further evaluation with CT or MRI. Signer Name: Gibran Garcia Jr, MD Signed: 10/25/2019 2:58 PM Workstation Name: [id number]
[2019-10-25] MEDS: FUROSEMIDE 40 MG/4 ML INJ IV SCH (18:31)
[2019-10-26] MEDS: hydrALAZINE 25 MG TAB PO SCH ×3 (06:34→21:46)
[2019-10-26] MEDS: FUROSEMIDE 40 MG/4 ML INJ IV SCH ×2 (06:34→17:06)
[2019-10-26] MEDS: LISINOPRIL 40 MG TAB PO SCH (09:58)
[2019-10-26] MEDS: SPIRONOLACTONE 25 MG TAB PO SCH (09:58)
[2019-10-26] MEDS: METOPROLOL TARTRATE 50 MG TAB PO SCH ×2 (09:58→21:46)
[2019-10-26] MEDS: DABIGATRAN 150 MG CAP PO SCH ×2 (09:58→21:46)
[2019-10-26] MEDS: dilTIAZem CD 240 MG CAP PO SCH (09:59)
[2019-10-26] MEDS: FAMOTIDINE 20 MG TAB PO SCH ×2 (09:59→21:46)
[2019-10-26] MEDS: OXYBUTYNIN 5 MG TAB PO SCH (09:59)
--- NOTE | 2019-10-26 11:33 | Progress Note ---
Assessment and Plan Acute systolic heart failure s/t dietary indiscretions Permanent Afib, rate controlled on pradaxa for oral anticoagulation Nonischemic cardiomyopathy EF 30-35% by outpatient echo 04/2019 Presence of AICD ([email or web address]) Hypertension Prior CVA with aphasia Recommendations: Advised sodium/fluid restrictions. Continue medical therapy for systolic heart failure and chronic atrial fibrillation. Stable cardiac marroquin. 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 Subjective Date of service: 10/26/19 Interval history: Patient is resting in bed and appears comfortable. He denies shortness of breath and reports he is diuresing well. Family member is at the bedside. Objective Vital Signs Temp Pulse Pulse Resp BP Pulse Ox 10/26/19 09:59 89 153/107 10/26/19 09:58 89 153/107 10/26/19 09:03 89 20 153/107 97 10/26/19 06:34 65 162/111 10/26/19 03:21 97.4 F L 65 18 162/111 96 10/26/19 00:00 69 69 18 10/25/19 23:29 98.2 F 67 18 147/91 96 10/25/19 22:08 81 161/114 10/25/19 22:07 81 161/114 10/25/19 19:40 98.2 F 81 16 161/114 96 10/25/19 17:59 84 158/112 95 10/25/19 14:59 135/98 10/25/19 14:58 135/98 10/25/19 12:15 80 160/108 95 - Physical Examination General: No Apparent Distress HEENT: Positive: PERRL Neck: Positive: trachea midline Cardiac: Positive: Reg Rate and Rhythm Lungs: Positive: Decreased Breath Sounds Neuro: Positive: Weakness (right sided residual) Extremities: Absent: edema
[2019-10-26] MEDS ORDERED: hydrALAZINE 20 MG/1 ML INJ IV ONE (12:13)
[2019-10-26] MEDS ORDERED: METOPROLOL TARTRATE 5 MG/5 ML INJ IV SCH (13:10)
--- NOTE | 2019-10-26 13:18 | Progress Note ---
Assessment and Plan Assessment and plan: --Brief episode of A. fib with rapid ventricular rate; resolved After low dose of IV beta-blockers, monitor closely --Right foot pain; medications, extremity x-ray right foot Chronic changes, no acute abnormality --Accelerated Hypertension Current Visit: Yes Status: Chronic Continue current antihypertensives Add IV and oral hydralazine -- Acute exacerbation of CHF (congestive heart failure) Current Visit: Yes Status: Acute Continue heart failure medications Input and output monitoring Cardiology consult, low-sodium diet fluid restriction ejection fraction 30-35% --Atrial fibrillation; rate controlled Current Visit: Yes Status: Chronic continue Pradaxa and Amiodarone -- Hypokalemia Current Visit: No Status: Acute Dependent spelled protocol Monitor Potassium levels --H/O CVA right hemiparesis and aphasia supportive care, PT is needed --OAB (overactive bladder) Current Visit: Yes Status: Chronic Continue Detrol -- Dyslipidemia Current Visit: Yes Status: Chronic Continue statins -- Presence of ICD Current Visit: Yes Status: Chronic No electrical discharges -- DVT prophylaxis Current Visit: No Status: Acute On heparin and GI prophylaxis Patient has labile blood pressures And heart rate, optimize medications Possible discharge tomorrow if stable Plan of care reviewed with the patient and his nurse And his at the bedside History Interval history: Patient seen and examined medical records reviewed Patient feels better however mild increase in blood pressures And patient suddenly went into A. fib with rapid ventricular rate Controlled with low-dose IV metoprolol x1 Anxious to go home Vital signs reviewed Hospitalist Physical - Constitutional Vitals: Temp Pulse Resp BP Pulse Ox 98.0 F 94 H 20 167/115 96 10/26/19 11:30 10/26/19 11:30 10/26/19 11:30 10/26/19 11:30 10/26/19 11:30 General appearance: Present: no acute distress, well-nourished, other (Aphasia) - EENT Eyes: Present: PERRL, EOM intact - Neck Neck: Present: supple, normal ROM - Respiratory Respiratory effort: normal Respiratory: bilateral: diminished, negative: rales, rhonchi, wheezing - Cardiovascular Rhythm: regular Heart Sounds: Present: S1 & S2 - Extremities Extremities: no ischemia, No edema - Abdominal General gastrointestinal: soft, non-tender, non-distended, normal bowel sounds - Integumentary Integumentary: Present: clear, warm - Psychiatric Psychiatric: appropriate mood/affect, cooperative - Neurologic Neurologic: moves all extremities Results - Labs CBC & Chem 7: 10/25/19 07:52 10/25/19 07:52 Labs: Laboratory Last Values WBC 4.6 K/mm3 (4.5-11.0) 10/25/19 07:52 RBC 5.44 M/mm3 (3.65-5.03) H 10/25/19 07:52 Hgb 15.7 gm/dl (11.8-15.2) H 10/25/19 07:52 Hct 47.2 % (35.5-45.6) H 10/25/19 07:52 MCV 87 fl (84-94) 10/25/19 07:52 MCH 29 pg (28-32) 10/25/19 07:52 MCHC 33 % (32-34) 10/25/19 07:52 RDW 13.8 % (13.2-15.2) 10/25/19 07:52 Plt Count 195 K/mm3 (140-440) 10/25/19 07:52 Lymph % (Auto) 32.9 % (13.4-35.0) 10/25/19 07:52 [place] % (Auto) 10.6 % (0.0-7.3) H 10/25/19 07:52 Eos % (Auto) 4.2 % (0.0-4.3) 10/25/19 07:52 Baso % (Auto) 2.0 % (0.0-1.8) H 10/25/19 07:52 Lymph # 1.5 K/mm3 (1.2-5.4) 10/25/19 07:52 [place] # 0.5 K/mm3 (0.0-0.8) 10/25/19 07:52 Eos # 0.2 K/mm3 (0.0-0.4) 10/25/19 07:52 Baso # 0.1 K/mm3 (0.0-0.1) 10/25/19 07:52 Seg Neutrophils % 50.3 % (40.0-70.0) 10/25/19 07:52 Seg Neutrophils # 2.3 K/mm3 (1.8-7.7) 10/25/19 07:52 PT 16.6 Sec. (12.2-14.9) H 10/24/19 11:46 INR 1.36 (0.87-1.13) H 10/24/19 11:46 APTT 40.7 Sec. (24.2-36.6) H 10/24/19 11:46 D-Dimer < 135.00 ng/mlDDU (0-234) 10/24/19 14:10 Sodium 142 mmol/L (137-145) 10/25/19 07:52 Potassium 3.0 mmol/L (3.6-5.0) L 10/25/19 07:52 Chloride 100.2 mmol/L (98-107) 10/25/19 07:52 Carbon Dioxide 25 mmol/L (22-30) 10/25/19 07:52 Anion Gap 20 mmol/L 10/25/19 07:52 BUN 24 mg/dL (9-20) H 10/25/19 07:52 Creatinine 1.2 mg/dL (0.8-1.5) 10/25/19 07:52 Estimated GFR > 60 ml/min 10/25/19 07:52 BUN/Creatinine Ratio 20 % 10/25/19 07:52 Glucose 99 mg/dL (75-100) 10/25/19 07:52 Hemoglobin A1c 5.7 % (4-6) 10/24/19 Unknown Calcium 8.6 mg/dL (8.4-10.2) 10/25/19 07:52 Total Bilirubin 0.60 mg/dL (0.1-1.2) 10/25/19 07:52 AST 24 units/L (5-40) 10/25/19 07:52 ALT 37 units/L (7-56) 10/25/19 07:52 Alkaline Phosphatase 43 units/L (35-129) 10/25/19 07:52 Troponin T < 0.010 ng/mL (0.00-0.029) 10/24/19 14:10 NT-Pro-B Natriuret Pep 1478 pg/mL (0-900) H 10/24/19 11:46 Total Protein 6.4 g/dL (6.3-8.2) 10/25/19 07:52 Albumin 3.5 g/dL (3.9-5) L 10/25/19 07:52 Albumin/Globulin Ratio 1.2 % 10/25/19 07:52 Active Medications - Current Medications Current Medications: Generic Name Dose Route Start Last Admin Trade Name Freq PRN Reason Stop Dose Admin Acetaminophen 650 mg 10/24/19 18:41 10/24/19 20:05 Tylenol PO 650 mg Q4H PRN Administration Pain MILD(1-3)/Fever >100.5/[place] Atorvastatin Calcium 20 mg 10/24/19 23:00 10/25/19 22:08 Lipitor PO 20 mg QDAY@2200 [facility] Administration Dabigatran 150 mg 10/24/19 22:00 10/26/19 09:58 Pradaxa PO 150 mg BID [facility] Administration Protocol Diltiazem HCl 240 mg 10/24/19 19:00 10/26/19 09:59 Cardizem Cd PO 240 mg QDAY [facility] Administration Famotidine 20 mg 10/24/19 22:00 10/26/19 09:59 Pepcid PO 20 mg BID [facility] Administration Furosemide 40 mg 10/25/19 18:00 10/26/19 06:34 Lasix IV 40 mg 0600,1800 [facility] Administration Hydralazine HCl 25 mg 10/25/19 14:00 10/26/19 06:34 Apresoline PO 25 mg Q8HR [facility] Administration Hydralazine HCl 10 mg 10/25/19 12:36 Apresoline IV Q4HR PRN HTN >150/90 Hydromorphone HCl 0.5 mg 10/24/19 18:41 Dilaudid IV Q3H PRN Pain , Severe (7-10) Lisinopril 40 mg 10/24/19 19:00 10/26/19 09:58 Zestril PO 40 mg QDAY [facility] Administration Metoprolol Tartrate 50 mg 10/24/19 22:00 10/26/19 09:58 Metoprolol PO 50 mg BID [facility] Administration Metoprolol Tartrate 5 mg 10/26/19 13:10 Metoprolol IV 10/26/19 17:00 ONCE [facility] Ondansetron HCl 4 mg 10/24/19 18:41 Zofran IV Q3H PRN Nausea And Vomiting Oxybutynin Chloride 10 mg 10/25/19 10:00 10/26/19 09:59 Ditropan PO 10 mg DAILY [facility] Administration Oxycodone/Acetaminophen 1 tab 10/24/19 18:41 10/25/19 04:11 Percocet 5/325 PO 1 tab Q6H PRN Administration Pain, Moderate (4-6) Sodium Chloride 10 ml 10/24/19 22:00 10/26/19 09:59 Sodium Chloride Flush Syringe 10 Ml IV 10 ml BID [facility] Administration Sodium Chloride 10 ml 10/24/19 18:41 Sodium Chloride Flush Syringe 10 Ml IV PRN PRN LINE FLUSH Spironolactone 25 mg 10/25/19 14:00 10/26/19 09:58 Aldactone PO 25 mg QDAY [facility] Administration
[2019-10-26] MEDS: oxyCODONE /ACETAMINOPHEN 5-325MG TAB PO PRN (21:46)
[2019-10-27] MEDS: FUROSEMIDE 40 MG/4 ML INJ IV SCH (05:57)
[2019-10-27] MEDS: hydrALAZINE 25 MG TAB PO SCH ×2 (05:57→15:15)
[2019-10-27] MEDS: SPIRONOLACTONE 25 MG TAB PO SCH (10:13)
[2019-10-27] MEDS: FAMOTIDINE 20 MG TAB PO SCH (10:13)
[2019-10-27] MEDS: LISINOPRIL 40 MG TAB PO SCH (10:13)
[2019-10-27] MEDS: OXYBUTYNIN 5 MG TAB PO SCH (10:13)
[2019-10-27] MEDS: METOPROLOL TARTRATE 50 MG TAB PO SCH (10:13)
[2019-10-27] MEDS: dilTIAZem CD 240 MG CAP PO SCH (10:13)
[2019-10-27] MEDS: DABIGATRAN 150 MG CAP PO SCH (10:14)
--- NOTE | 2019-10-27 11:59 | Progress Note ---
<JOSE ANTONIOLIZAUDI - Last Filed: 10/27/19 11:58> Assessment and Plan Acute systolic heart failure s/t dietary indiscretions Permanent Afib, rate controlled on pradaxa for oral anticoagulation Nonischemic cardiomyopathy EF 30-35% by outpatient echo 04/2019 Presence of AICD ([email or web address]) Hypertension Prior CVA with aphasia Recommendations: Advised sodium/fluid restrictions. Continue medical therapy for systolic heart failure and chronic atrial fibrillation. Stable cardiac marroquin. 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 Subjective Date of service: 10/27/19 Interval history: Afib with a well controlled ventricular rate on telemetry. Objective Vital Signs Temp Pulse Pulse Resp BP BP Pulse Ox 10/27/19 11:24 98.3 F 84 18 135/91 98 10/27/19 10:13 72 138/102 10/27/19 08:06 97.4 F L 72 18 138/102 98 10/27/19 03:33 97.7 F 70 18 146/100 98 10/27/19 03:17 109 H 10/26/19 23:21 97.5 F L 69 16 136/93 98 10/26/19 19:28 98.2 F 95 H 18 149/92 96 10/26/19 15:17 109 H 10/26/19 13:45 147/97 10/26/19 12:00 109 H - Physical Examination General: No Apparent Distress HEENT: Positive: PERRL Neck: Positive: trachea midline Cardiac: Positive: irregularly irregular Lungs: Positive: Decreased Breath Sounds Neuro: Positive: Weakness (right sided residual) Extremities: Absent: edema <LISA GASTELUM - Last Filed: 11/03/19 10:07> Assessment and Plan I have seen and evaluated the patient myself, and agree with the assessment and plan.
[2019-10-27 12:12] VITALS: BP 135/91
--- NOTE | 2019-10-27 15:23 | Discharge Summary ---
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 Patient has orthopnea. Patient has shortness of breath on minimal exertion. Has class IV NYHA symptoms. No palpitations. No chest pain. Patient was started on Lasix several or 10 days ago with no relief of symptoms. Worsening symptoms over the last 1 week with orthopnea and paroxysmal nocturnal dyspnea. Also shortness of breath with very minimal exertion. Symptomatically managed,evaluated by research professor of biostatistics,medications optimised. Today patient feels better,no new complaints, vital signs stable. Stable at discharge Discharge Diagnosis: --Brief episode of A. fib with rapid ventricular rate; resolved After low dose of IV beta-blockers, monitor closely --Right foot pain; medications, extremity x-ray right foot Chronic changes, no acute abnormality --Accelerated Hypertension Current Visit: Yes Status: Chronic Continue current antihypertensives Add IV and oral hydralazine -- Acute exacerbation of CHF (congestive heart failure) Current Visit: Yes Status: Acute Continue heart failure medications Input and output monitoring Cardiology consult, low-sodium diet fluid restriction ejection fraction 30-35% --Atrial fibrillation; rate controlled Current Visit: Yes Status: Chronic continue Pradaxa and Amiodarone -- Hypokalemia Current Visit: No Status: Acute Dependent spelled protocol Monitor Potassium levels --H/O CVA right hemiparesis and aphasia supportive care, PT is needed --OAB (overactive bladder) Current Visit: Yes Status: Chronic Continue Detrol -- Dyslipidemia Current Visit: Yes Status: Chronic Continue statins -- Presence of ICD Current Visit: Yes Status: Chronic No electrical discharges -- DVT prophylaxis Current Visit: No Status: Acute On heparin and GI prophylaxis Stable at discharge Disposition: DC-01 TO HOME OR SELFCARE Time spent for discharge: 32 min Core Measure Documentation - Palliative Care Palliative Care/ Comfort Measures: Not Applicable - Core Measures Any of the following diagnoses?: none - Heart Failure Discharge Requirements ED/ARB for LVSD if EF <40%: Yes Beta jose at discharge: Yes Exam - Constitutional Vitals: Temp Pulse Resp BP Pulse Ox 98.3 F 84 18 135/91 98 10/27/19 11:24 10/27/19 11:24 10/27/19 11:24 10/27/19 11:24 10/27/19 11:24 General appearance: Present: no acute distress, well-nourished - EENT Eyes: Present: PERRL, EOM intact - Neck Neck: Present: supple, normal ROM - Respiratory Respiratory effort: normal Respiratory: bilateral: diminished, rales, negative: rhonchi, wheezing - Cardiovascular Rhythm: regular Heart Sounds: Present: S1 & S2 - Extremities Extremities: no ischemia Extremity abnormal: edema - Abdominal General gastrointestinal: Present: soft, non-tender, non-distended, normal bowel sounds - Integumentary Integumentary: Present: clear, warm - Musculoskeletal Musculoskeletal: strength equal bilaterally - Psychiatric Psychiatric: appropriate mood/affect, cooperative - Neurologic Neurologic: moves all extremities Plan Activity: advance as tolerated, fall precautions Diet: other (cardiac diet) Additional Instructions: f/u primary research professor of biostatistics, Dr Rojas, within 3-5 days of discharge. Aspiration precautions. Fall precautions Follow up with: PRIMARY CARE, [Referring] - 3-5 Days NATALIO ROJAS MD [Staff Physician] - 3 Days Prescriptions: Spironolactone [Aldactone] 25 mg PO QDAY #30 tablet hydrALAZINE [Apresoline TAB] 25 mg PO Q8HR #90 tablet Oxybutynin [Ditropan] 10 mg PO DAILY #30 tablet
[2019-10-28] MEDS ORDERED: FUROSEMIDE 40 MG TAB PO SCH (10:00)
== END 2019-10-27 15:55 | disposition home or self-care (01) | DRG 292 ==
LOC: ED 11:28 → 4A 15:11 → OBSVTOIN 10-25 09:11
PROVIDERS: ADMIT Internal Medicine; ATTEND Internal Medicine
DX: I11.0 Hypertensive heart disease with heart failure (principal); I69.351 Hemiplegia and hemiparesis following cerebral infarction affecting right dominant side; I48.11 Longstanding persistent atrial fibrillation; I50.43 Acute on chronic combined systolic (congestive) and diastolic (congestive) heart failure; E87.6 Hypokalemia; E78.2 Mixed hyperlipidemia; N32.81 Overactive bladder; I42.0 Dilated cardiomyopathy; E78.5 Hyperlipidemia, unspecified; M10.9 Gout, unspecified; Z79.899 Other long term (current) drug therapy; Z95.810 Presence of automatic (implantable) cardiac defibrillator; I69.320 Aphasia following cerebral infarction; Z82.49 Family history of ischemic heart disease and other diseases of the circulatory system
CPT/HCPCS: 36415; 71046; 80053; 83036; 83880; 84484; 85025; 85379; 85610; 85730; 87116; 93005; 93010; 96360; G0378; A9270-GY; J0360; J1940

== ENCOUNTER 2019-12-24 08:33 | Emergency (ER) | payer MEDICARE ==
[2019-12-24 09:44] LABS: Basophils # (Auto) 0.1 K/mm3 (0.0-0.1); Basophils % (Auto) 1.4 % (0.0-1.8); Eosinophils # (Auto) 0.1 K/mm3 (0.0-0.4); Eosinophils % (Auto) 1.5 % (0.0-4.3); Hematocrit 52.8 % (35.5-45.6); Hemoglobin 17.6 gm/dl (11.8-15.2); Lymphocytes # (Auto) 1.5 K/mm3 (1.2-5.4); Lymphocytes % (Auto) 19.4 % (13.4-35.0); Mean Corpuscular HGB Conc 33 % (32-34); Mean Corpuscular Volume 86 fl (84-94); Monocytes # (Auto) 0.8 K/mm3 (0.0-0.8); Monocytes % (Auto) 10.4 % (0.0-7.3); Platelet Count 258 K/mm3 (140-440); Red Blood Count 6.15 M/mm3 (3.65-5.03); Red Cell Distribution Width 14.2 % (13.2-15.2)
--- NOTE | 2019-12-24 09:46 | XRay Report ---
CHEST 1 VIEW INDICATION: Chest Pain. COMPARISON: 10/24/2019 FINDINGS: Support devices: Single lead pacemaker device is unchanged terminating in the right ventricle. Heart: Within normal limits. Lungs/Pleura: No acute air space or interstitial disease. Additional findings: None. IMPRESSION: Unremarkable AP chest. No change since 10/24/2019. Signer Name: Gibran Garcia Jr, MD Signed: 12/24/2019 9:42 AM Workstation Name: [id number]
[2019-12-24 10:00] LABS: BUN/Creatinine Ratio 13; Blood Urea Nitrogen 18 mg/dL (9-20); Calcium 9.1 mg/dL (8.4-10.2); Hemolysis Index 13
[2019-12-24] MEDS ORDERED: IPRATROPIUM/ALBUTEROL SULFATE 3 ML AMPUL.NEB IH ONE (10:14)
[2019-12-24 11:09] LABS: INR 1.52 (0.87-1.13)
[2019-12-24 11:10] LABS: Partial Thromboplastin Time 47.3 Sec. (24.2-36.6)
[2019-12-24 11:21] LABS: Alanine Aminotransferase 50 units/L (7-56); Albumin 3.1 g/dL (3.9-5)
--- NOTE | 2019-12-24 11:30 | Emergency Department Report ---
ED Shortness of Breath HPI - General Chief Complaint: Dyspnea/Respdistress Stated Complaint: SOB Time Seen by Provider: 12/24/19 09:45 Source: patient, family Mode of arrival: Ambulatory Limitations: Physical Limitation - History of Present Illness Initial Comments: 54-year-old man who is a 57 secondary to stroke. His aphasia is largely expressive. He is here with his mother who he resides with. She states he has been short of breath. She called Dr. Nino his belt notcher who suggested that he take some extra Lasix. He's had symptoms of the past few days. He has had no visible edema. He is not coughing. She denies any recent fever or c hills. He has not expressed any symptoms of pain. Patient has a history of chronic atrial fibrillation. He takes Pradaxa. MD Complaint: shortness of breath -: Gradual, days(s) Known History Of: congestive heart failure - Related Data Previous Rx's Medication Instructions Recorded Last Taken Type Amiodarone [Cordarone 200 MG TAB] 200 mg PO QDAY #30 tablet 07/21/19 08/09/19 Rx Dabigatran [Pradaxa] 150 mg PO BID #60 capsule 07/21/19 08/09/19 Rx Metoprolol [Lopressor TAB] 50 mg PO BID #60 tablet 07/21/19 08/09/19 Rx dilTIAZem CD [Cardizem CD] 240 mg PO QDAY #30 capsule 07/21/19 08/09/19 Rx Oxybutynin [Ditropan] 10 mg PO DAILY #30 tablet 10/27/19 Unknown Rx hydrALAZINE [Apresoline TAB] 25 mg PO Q8HR #90 tablet 10/27/19 Unknown Rx Albuterol Sulfate [Proventil Hfa] 6.7 gm IH Q4H PRN #1 hfa.aer.ad 12/24/19 Unknown Rx Allergies Allergy/AdvReac Type Severity Reaction Status Date / Time No Known Allergies Allergy Unverified 10/08/15 03:03 ED Review of Systems ROS: Stated complaint: SOB Other details as noted in HPI Comment: Unobtainable due to pts medical conditions ED Past Medical Hx - Past Medical History Previous Medical History?: Yes Hx Hypertension: Yes Hx CVA: Yes (right side deficits) Hx Congestive Heart Failure: Yes Hx Diabetes: No Hx Renal Disease: No Hx Arthritis: Yes (gout) Hx Headaches / Migraines: No Hx Seizures: No Hx Asthma: No Hx COPD: No Hx Dementia: No Hx HIV: No Additional medical history: irregular heart beat - Surgical History Past Surgical History?: Yes Hx Pacemaker: Yes Hx Internal Defibrillator: Yes - Social History Smoking Status: Never Smoker Substance Use Type: None - Medications Home Medications: Home Medications Medication Instructions Recorded Confirmed Last Taken Type Amiodarone [Cordarone 200 MG TAB] 200 mg PO QDAY #30 tablet 07/21/19 12/24/19 08/09/19 Rx Dabigatran [Pradaxa] 150 mg PO BID #60 capsule 07/21/19 12/24/19 08/09/19 Rx Metoprolol [Lopressor TAB] 50 mg PO BID #60 tablet 07/21/19 12/24/19 08/09/19 Rx dilTIAZem CD [Cardizem CD] 240 mg PO QDAY #30 capsule 07/21/19 12/24/19 08/09/19 Rx Oxybutynin [Ditropan] 10 mg PO DAILY #30 tablet 10/27/19 12/24/19 Unknown Rx hydrALAZINE [Apresoline TAB] 25 mg PO Q8HR #90 tablet 10/27/19 12/24/19 Unknown Rx Albuterol Sulfate [Proventil Hfa] 6.7 gm IH Q4H PRN #1 hfa.aer.ad 12/24/19 Unknown Rx ED Physical Exam - General Limitations: Physical Limitation, Other (aphasia) General appearance: alert, in no apparent distress - Head Head exam: Present: atraumatic, normocephalic - Eye Eye exam: Present: normal appearance - ENT ENT exam: Present: mucous membranes moist - Neck Neck exam: Present: normal inspection - Respiratory Respiratory exam: Present: wheezes (end expiratory). Absent: respiratory distress, accessory muscle use, decreased breath sounds - Cardiovascular Cardiovascular Exam: Present: regular rate, irregular rhythm. Absent: systolic murmur, diastolic murmur, rubs, gallop - GI/Abdominal GI/Abdominal exam: Present: soft, normal bowel sounds. Absent: distended, tenderness, guarding, rebound, rigid - Rectal Rectal exam: Present: deferred - Extremities Exam Extremities exam: Present: normal inspection, normal capillary refill. Absent: pedal edema, joint swelling, calf tenderness - Back Exam Back exam: Present: normal inspection - Neurological Exam Neurological exam: Present: alert, CN II-XII intact. Absent: motor sensory deficit - Psychiatric Psychiatric exam: Present: normal mood, flat affect - Skin Skin exam: Present: warm, dry, intact, normal color. Absent: rash ED Course Vital Signs 12/24/19 12/24/19 12/24/19 08:33 09:41 10:26 Temperature 98.4 F Pulse Rate 87 84 Pulse Rate [ 85 Anterior Bilateral Throughout] Respiratory 18 16 Rate Respiratory 17 Rate [Anterior Bilateral Throughout] Blood Pressure 158/108 Blood Pressure 140/91 [Left] O2 Sat by Pulse 99 100 Oximetry - Reevaluation(s) Reevaluation #1: Patient was found to have some end expiratory wheezing. He was given a DuoNeb. This resolved. The patient expressed relief. The mother has in the machine at home. He'll be prescribed an inhaler. They can use at home neb machine as well. I do not recommend extra Lasix at this time. He has not taken his blood pressure medicine yet. They have been instructed to do so but not take the extra Lasix. He is a bit hemoconcentrated on his CBC result. His potassium was somewhat low he was given supplemental potassium. 12/24/19 11:45 ED Medical Decision Making - Lab Data Result diagrams: 12/24/19 09:14 12/24/19 09:14 Laboratory Results - last 24 hr 12/24/19 12/24/19 12/24/19 09:14 09:14 10:37 WBC 7.5 RBC 6.15 H Hgb 17.6 H Hct 52.8 H MCV 86 MCH 29 MCHC 33 RDW 14.2 Plt Count 258 Lymph % (Auto) 19.4 [place] % (Auto) 10.4 H Eos % (Auto) 1.5 Baso % (Auto) 1.4 Lymph # 1.5 Irion # 0.8 Eos # 0.1 Baso # 0.1 Seg Neutrophils % 67.3 Seg Neutrophils # 5.0 PT INR APTT Sodium 142 Potassium 3.4 L Chloride 99.0 Carbon Dioxide 27 Anion Gap 19 BUN 18 Creatinine 1.4 Estimated GFR > 60 BUN/Creatinine Ratio 13 Glucose 119 H Calcium 9.1 Total Bilirubin AST ALT Alkaline Phosphatase Troponin T < 0.010 < 0.010 NT-Pro-B Natriuret Pep Total Protein Albumin Albumin/Globulin Ratio 12/24/19 12/24/19 10:37 10:37 WBC RBC Hgb Hct MCV MCH MCHC RDW Plt Count Lymph % (Auto) [place] % (Auto) Eos % (Auto) Baso % (Auto) Lymph # Irion # Eos # Baso # Seg Neutrophils % Seg Neutrophils # PT 18.5 H INR 1.52 H APTT 47.3 H Sodium Potassium Chloride Carbon Dioxide Anion Gap BUN Creatinine Estimated GFR BUN/Creatinine Ratio Glucose Calcium Total Bilirubin 0.80 AST 37 ALT 50 Alkaline Phosphatase 53 Troponin T NT-Pro-B Natriuret Pep 343.8 Total Protein 6.4 Albumin 3.1 L Albumin/Globulin Ratio 0.9 - EKG Data -: EKG Interpreted by Me Rate: normal - EKG Data Interpretation: other (atrial fib flutter with variable response and normal ventricular rate. Nonspecific changes.) - Radiology Data Radiology results: report reviewed, image reviewed (no acute process) Critical care attestation.: If time is entered above; I have spent that time in minutes in the direct care of this critically ill patient, excluding procedure time. ED Disposition Clinical Impression: Reactive airways dysfunction syndrome, Atrial fibrillation and flutter, Hypokalemia Disposition: - TO HOME OR SELFCARE Is pt being admited?: No Does the pt Need Aspirin: No Condition: Stable Additional Instructions: You may use your neb machine at home. He may use the hand-held inhaler as well. Do not take extra Lasix. Blood pressure medicine as prescribed. Follow-up with Dr. Nino. Prescriptions: Albuterol Sulfate [Proventil Hfa] 6.7 gm IH Q4H PRN #1 hfa.aer.ad PRN Reason: Wheezing Referrals: KIT NICHOLS MD [Primary Care Provider] - 3-5 Days NATALIO NINO MD [Staff Physician] - 2-3 Days Time of Disposition: 11:51
[2019-12-24] MEDS ORDERED: CEFEPIME/NS 1 GM/100 ML 1 GM/100 ML BAG IV ONE (11:31)
[2019-12-24] MEDS ORDERED: POTASSIUM CHLORIDE ER 20 MEQ TAB PO ONE (11:38)
[2019-12-24 11:39] LABS: Bilirubin,Direct < 0.2 mg/dL (0-0.2)
[2019-12-24] MEDS ORDERED: VANCOMYCIN PHARMACY TO DOSE IV SCH (12:00)
[2019-12-24] MEDS ORDERED: VANCOMYCIN 1,750 MG in SODIUM CHLORIDE 0.9% 500 ML 500 ML IV ONE (12:30)
[2019-12-24 12:57] VITALS: BP 147/101
[2019-12-25] MEDS ORDERED: VANCOMYCIN 1,250 MG in SODIUM CHLORIDE 0.9% 250ML 250 ML IV SCH (03:00)
== END 2019-12-24 13:14 | disposition home or self-care (01) ==
LOC: ED 08:33
DX: E87.6 Hypokalemia (principal); I48.92 Unspecified atrial flutter; I48.20 Chronic atrial fibrillation, unspecified; J68.3 Other acute and subacute respiratory conditions due to chemicals, gases, fumes and vapors; I11.0 Hypertensive heart disease with heart failure; I50.9 Heart failure, unspecified; M10.9 Gout, unspecified; Z95.0 Presence of cardiac pacemaker; Z86.73 Personal history of transient ischemic attack (TIA), and cerebral infarction without residual deficits; Z79.899 Other long term (current) drug therapy
CPT/HCPCS: 36415; 71045; 80048; 80076; 83880; 84484; 85025; 85610; 85730; 93005; 93010; 94640; 96365; 96368; 96375; 99284; J0692; J3370; J7040; 94644

== ENCOUNTER 2020-01-20 18:54 | Emergency (ER) | payer MEDICARE ==
--- NOTE | 2020-01-20 19:19 | Emergency Department Report ---
Blank Doc - Documentation Documentation: 54-year-old male that presents with SOB and chest pain. This initial assessment/diagnostic orders/clinical plan/treatment(s) is/are subject to change based on patient's health status, clinical progression and re- assessment by fellow clinical providers in the ED. Further treatment and workup at subsequent clinical providers discretion. Patient/guardians urged not to elope from the ED as their condition may be serious if not clinically assessed and managed. Initial orders include: 1- Patient sent to MAIN ED for further evaluation and treatment 2- cardiac workup
[2020-01-20 19:51] LABS: Basophils # (Auto) 0.1 K/mm3 (0.0-0.1); Basophils % (Auto) 0.9 % (0.0-1.8); Eosinophils # (Auto) 0.1 K/mm3 (0.0-0.4); Hematocrit 50.7 % (35.5-45.6); Hemoglobin 16.8 gm/dl (11.8-15.2); Lymphocytes # (Auto) 1.3 K/mm3 (1.2-5.4); Lymphocytes % (Auto) 19.8 % (13.4-35.0); Mean Corpuscular HGB Conc 33 % (32-34); Mean Corpuscular Volume 87 fl (84-94); Monocytes # (Auto) 0.8 K/mm3 (0.0-0.8); Monocytes % (Auto) 13.2 % (0.0-7.3); Platelet Count 244 K/mm3 (140-440); Red Blood Count 5.81 M/mm3 (3.65-5.03); Red Cell Distribution Width 13.9 % (13.2-15.2)
[2020-01-20 20:02] LABS: INR 1.27 (0.87-1.13); Partial Thromboplastin Time 48.6 Sec. (24.2-36.6)
--- NOTE | 2020-01-20 20:07 | XRay Report ---
CHEST 2 VIEWS INDICATION / CLINICAL INFORMATION: Chest Pain. COMPARISON: 01/13/20 FINDINGS: SUPPORT DEVICES: None. HEART / MEDIASTINUM: Stable. Left-sided AICD is unchanged. LUNGS / PLEURA: No significant pulmonary or pleural abnormality. No pneumothorax. ADDITIONAL FINDINGS: No significant additional findings. IMPRESSION: 1. No acute findings. No change. Signer Name: Mavis Quinn MD Signed: 01/20/2020 8:03 PM Workstation Name: [id number]
[2020-01-20 20:15] LABS: Alanine Aminotransferase 44 units/L (7-56); BUN/Creatinine Ratio 11; Blood Urea Nitrogen 18 mg/dL (9-20); Hemolysis Index 24
[2020-01-20] MEDS ORDERED: BENZONATATE 100 MG CAP PO ONE (23:07)
[2020-01-20] MEDS ORDERED: DOXYCYCLINE 100 MG TAB PO ONE (23:07)
--- NOTE | 2020-01-20 23:13 | Emergency Department Report ---
ED General Adult HPI - General Chief complaint: Dyspnea/Respdistress Stated complaint: SOB, PAIN, COLD Time Seen by Provider: 01/20/20 19:16 Source: patient Mode of arrival: Ambulatory Limitations: No Limitations - History of Present Illness Initial comments: Mr. Patricia is a 54-year-old male with history of atrial fibrillation, systolic CHF with AICD in place, hypertension, dyslipidemia who presents with cough for 2 weeks. He denies chest pain. He has soreness in his chest with cough. Denies shortness of breath. Received albuterol MDI in December. Unable to recall if he received antibiotics at that time. He takes Pradaxa for anticoagulation. -: Gradual, week(s) (2) Location: chest Quality: other (Persistent cough for 2 weeks) Consistency: constant Improves with: none Worsens with: none Associated Symptoms: denies other symptoms - Related Data Previous Rx's Medication Instructions Recorded Last Taken Type Amiodarone [Cordarone 200 MG TAB] 200 mg PO QDAY #30 tablet 07/21/19 08/09/19 Rx Dabigatran [Pradaxa] 150 mg PO BID #60 capsule 07/21/19 08/09/19 Rx Metoprolol [Lopressor TAB] 50 mg PO BID #60 tablet 07/21/19 08/09/19 Rx dilTIAZem CD [Cardizem CD] 240 mg PO QDAY #30 capsule 07/21/19 08/09/19 Rx Oxybutynin [Ditropan] 10 mg PO DAILY #30 tablet 10/27/19 Unknown Rx hydrALAZINE [Apresoline TAB] 25 mg PO Q8HR #90 tablet 10/27/19 Unknown Rx Albuterol Sulfate [Proventil Hfa] 6.7 gm IH Q4H PRN #1 hfa.aer.ad 12/24/19 Unknown Rx Benzonatate [Tessalon Perles] 100 mg PO Q8HR PRN #20 capsule 01/20/20 Unknown Rx DOXYCYCLINE Hyclate [Vibramycin 100 mg PO Q12HR 7 Days #14 capsule 01/20/20 Unknown Rx CAP] Allergies Allergy/AdvReac Type Severity Reaction Status Date / Time No Known Allergies Allergy Verified 01/20/20 18:57 ED Review of Systems ROS: Stated complaint: SOB, PAIN, COLD Other details as noted in HPI Comment: All other systems reviewed and negative Constitutional: denies: fever, malaise Respiratory: cough. denies: shortness of breath Cardiovascular: denies: chest pain Gastrointestinal: denies: abdominal pain, nausea, vomiting ED Past Medical Hx - Past Medical History Previous Medical History?: Yes Hx Hypertension: Yes Hx CVA: Yes (right side deficits) Hx Congestive Heart Failure: Yes Hx Diabetes: No Hx Renal Disease: No Hx Arthritis: Yes (gout) Hx Headaches / Migraines: No Hx Seizures: No Hx Asthma: No Hx COPD: No Hx Dementia: No Hx HIV: No Additional medical history: irregular heart beat - Surgical History Past Surgical History?: Yes Hx Pacemaker: Yes Hx Internal Defibrillator: Yes - Social History Smoking Status: Never Smoker Substance Use Type: None - Medications Home Medications: Home Medications Medication Instructions Recorded Confirmed Last Taken Type Amiodarone [Cordarone 200 MG TAB] 200 mg PO QDAY #30 tablet 07/21/19 12/24/19 08/09/19 Rx Dabigatran [Pradaxa] 150 mg PO BID #60 capsule 07/21/19 12/24/19 08/09/19 Rx Metoprolol [Lopressor TAB] 50 mg PO BID #60 tablet 07/21/19 12/24/19 08/09/19 Rx dilTIAZem CD [Cardizem CD] 240 mg PO QDAY #30 capsule 07/21/19 12/24/19 08/09/19 Rx Oxybutynin [Ditropan] 10 mg PO DAILY #30 tablet 10/27/19 12/24/19 Unknown Rx hydrALAZINE [Apresoline TAB] 25 mg PO Q8HR #90 tablet 10/27/19 12/24/19 Unknown Rx Albuterol Sulfate [Proventil Hfa] 6.7 gm IH Q4H PRN #1 hfa.aer.ad 12/24/19 Unknown Rx Benzonatate [Tessalon Perles] 100 mg PO Q8HR PRN #20 capsule 01/20/20 Unknown Rx DOXYCYCLINE Hyclate [Vibramycin 100 mg PO Q12HR 7 Days #14 capsule 01/20/20 Unknown Rx CAP] ED Physical Exam - General Limitations: No Limitations General appearance: alert, in no apparent distress, other (Frequent cough) - Head Head exam: Present: atraumatic, normocephalic - Eye Eye exam: Present: normal appearance - ENT ENT exam: Present: mucous membranes moist - Neck Neck exam: Present: normal inspection, full ROM - Respiratory Respiratory exam: Present: normal lung sounds bilaterally. Absent: respiratory distress, wheezes, rales, rhonchi - Cardiovascular Cardiovascular Exam: Present: regular rate, irregular rhythm, normal heart sounds. Absent: systolic murmur, diastolic murmur, rubs, gallop - GI/Abdominal GI/Abdominal exam: Present: soft, normal bowel sounds. Absent: distended, tenderness, guarding, rebound - Rectal Rectal exam: Present: deferred - Extremities Exam Extremities exam: Present: normal inspection - Neurological Exam Neurological exam: Present: alert, oriented X3 - Psychiatric Psychiatric exam: Present: normal affect, normal mood - Skin Skin exam: Present: warm, dry, intact, normal color. Absent: rash ED Course Vital Signs 01/20/20 01/20/20 19:16 22:45 Temperature 97.4 F L Pulse Rate 86 128 H Respiratory 20 32 H Rate Blood Pressure 138/98 143/110 O2 Sat by Pulse 97 99 Oximetry ED Medical Decision Making - Lab Data Result diagrams: 01/20/20 19:36 01/20/20 19:36 Laboratory Results - last 24 hr 01/20/20 01/20/20 01/20/20 19:36 19:36 19:36 WBC 6.3 RBC 5.81 H Hgb 16.8 H Hct 50.7 H MCV 87 MCH 29 MCHC 33 RDW 13.9 Plt Count 244 Lymph % (Auto) 19.8 [place] % (Auto) 13.2 H Eos % (Auto) 2.0 Baso % (Auto) 0.9 Lymph # 1.3 [place] # 0.8 Eos # 0.1 Baso # 0.1 Seg Neutrophils % 64.1 Seg Neutrophils # 4.1 PT 16.1 H INR 1.27 H APTT 48.6 H Sodium 137 Potassium 3.2 L Chloride 94.3 L Carbon Dioxide 26 Anion Gap 20 BUN 18 Creatinine 1.6 H Estimated GFR 55 BUN/Creatinine Ratio 11 Glucose 100 Calcium 9.0 Total Bilirubin 0.80 AST 37 ALT 44 Alkaline Phosphatase 67 Troponin T < 0.010 NT-Pro-B Natriuret Pep 1220 H Total Protein 7.1 Albumin 3.0 L Albumin/Globulin Ratio 0.7 - EKG Data 01/20/20 23:13 EKG obtained upon arrival Atrial fibrillation ventricular rate 115 bpm normal axis prolonged QT interval no ST elevation no ischemic changes - Radiology Data Radiology results: report reviewed Chest 2 views no acute findings AICD in place according to radiology impression - Medical Decision Making Mr. Patricia presents with acute bronchitis for 2 weeks. Antibiotics are indicated due to severe persistent symptomsi in a patient who formally smoked tobacco. No pulmonary edema or infiltrate seen on chest radiograph. I do not suspect anginal equivalent. Prescribed doxycycline and Tessalon Perles Heart rate prior to discharge 90 bpm Critical care attestation.: If time is entered above; I have spent that time in minutes in the direct care of this critically ill patient, excluding procedure time. ED Disposition Clinical Impression: Acute bronchitis, Atrial fibrillation Disposition: DC- TO HOME OR SELFCARE Is pt being admited?: No Does the pt Need Aspirin: No Condition: Stable Instructions: Acute Bronchitis (ED) Prescriptions: Benzonatate [Tessalon Perles] 100 mg PO Q8HR PRN #20 capsule PRN Reason: Cough DOXYCYCLINE Hyclate [Vibramycin CAP] 100 mg PO Q12HR 7 Days #14 capsule Referrals: KIT NICHOLS MD [Primary Care Provider] - 3-5 Days
[2020-01-20 23:25] VITALS: BP 151/91
== END 2020-01-20 23:30 | disposition home or self-care (01) ==
LOC: ED 18:54
DX: J20.9 Acute bronchitis, unspecified (principal); I48.91 Unspecified atrial fibrillation; I11.0 Hypertensive heart disease with heart failure; I50.9 Heart failure, unspecified; E78.5 Hyperlipidemia, unspecified; M10.9 Gout, unspecified; Z79.899 Other long term (current) drug therapy; Z95.0 Presence of cardiac pacemaker
CPT/HCPCS: 36415; 71046; 80053; 83880; 84484; 85025; 85610; 85730; 93005; 93010

== ENCOUNTER 2020-02-16 15:00 | Emergency (ER) | payer MEDICARE ==
[2020-02-16] MEDS ORDERED: ASPIRIN 325 MG TAB PO ONE (15:26)
--- NOTE | 2020-02-16 16:15 | XRay Report ---
CHEST 1 VIEW INDICATION: Chest Pain. COMPARISON: 01/20/2020 FINDINGS: SUPPORT DEVICES: None. HEART / MEDIASTINUM: No significant abnormality. LUNGS / PLEURA: No significant pulmonary or pleural abnormality. No pneumothorax. ADDITIONAL FINDINGS: IMPRESSION: 1. No acute cardiopulmonary disease Signer Name: Naveen Pena MD Signed: 02/16/2020 4:11 PM Workstation Name: [id number]
[2020-02-16 16:27] LABS: Basophils % (Auto) 0.9 % (0.0-1.8); Eosinophils # (Auto) 0.3 K/mm3 (0.0-0.4); Eosinophils % (Auto) 5.2 % (0.0-4.3); Hematocrit 41.6 % (35.5-45.6); Hemoglobin 13.9 gm/dl (11.8-15.2); Lymphocytes # (Auto) 1.1 K/mm3 (1.2-5.4); Lymphocytes % (Auto) 20.6 % (13.4-35.0); Mean Corpuscular HGB Conc 34 % (32-34); Mean Corpuscular Volume 86 fl (84-94); Monocytes # (Auto) 0.6 K/mm3 (0.0-0.8); Monocytes % (Auto) 10.9 % (0.0-7.3); Platelet Count 299 K/mm3 (140-440); Red Blood Count 4.82 M/mm3 (3.65-5.03); Red Cell Distribution Width 13.8 % (13.2-15.2)
[2020-02-16 16:51] LABS: BUN/Creatinine Ratio 9; Blood Urea Nitrogen 14 mg/dL (9-20); Calcium 8.5 mg/dL (8.4-10.2); Hemolysis Index 28
[2020-02-16] MEDS ORDERED: ASPIRIN 325 MG TAB ONE (18:02)
[2020-02-16] MEDS ORDERED: DEXAMETHASONE 4 MG TAB PO ONE (18:55)
--- NOTE | 2020-02-16 19:00 | Emergency Department Report ---
HPI - General Chief Complaint: Upper Respiratory Infection Time Seen by Provider: 02/16/20 18:46 - HPI HPI: 54-year-old -Swiss male presents to the emergency department with a complaint of a 3-week history of a mixed dry and productive cough. The patient has also had some intermittent shortness of breath but denies any at this time. He complains of some mild chest wall discomfort, only when coughing. No fever, lower extremity swelling, nausea, vomiting or diaphoresis. The patient was seen here previously for similar symptoms at the beginning of January and was diagnosed with bronchitis and placed on Tessalon Perles. He has been taking the Tessalon Perles without much relief. His primary care physician is Dr. Nichols and he has an appointment with him in about 1 week. 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 No recent travel or sick contacts at home. ED Past Medical Hx - Past Medical History Previous Medical History?: Yes Hx Hypertension: Yes Hx CVA: Yes (right side deficits) Hx Congestive Heart Failure: Yes Hx Diabetes: No Hx Renal Disease: No Hx Arthritis: Yes (gout) Hx Headaches / Migraines: No Hx Seizures: No Hx Asthma: No Hx COPD: No Hx Dementia: No Hx HIV: No Additional medical history: irregular heart beat - Surgical History Past Surgical History?: Yes Hx Pacemaker: Yes Hx Internal Defibrillator: Yes - Social History Smoking Status: Former Smoker Substance Use Type: None - Medications Home Medications: Home Medications Medication Instructions Recorded Confirmed Last Taken Type Amiodarone [Cordarone 200 MG TAB] 200 mg PO QDAY #30 tablet 07/21/19 12/24/19 08/09/19 Rx Dabigatran [Pradaxa] 150 mg PO BID #60 capsule 07/21/19 12/24/19 08/09/19 Rx Metoprolol [Lopressor TAB] 50 mg PO BID #60 tablet 07/21/19 12/24/19 08/09/19 Rx dilTIAZem CD [Cardizem CD] 240 mg PO QDAY #30 capsule 07/21/19 12/24/19 08/09/19 Rx Oxybutynin [Ditropan] 10 mg PO DAILY #30 tablet 10/27/19 12/24/19 Unknown Rx hydrALAZINE [Apresoline TAB] 25 mg PO Q8HR #90 tablet 10/27/19 12/24/19 Unknown Rx Albuterol Sulfate [Proventil Hfa] 6.7 gm IH Q4H PRN #1 hfa.aer.ad 12/24/19 Unknown Rx Benzonatate [Tessalon Perles] 100 mg PO Q8HR PRN #20 capsule 01/20/20 Unknown Rx DOXYCYCLINE Hyclate [Vibramycin 100 mg PO Q12HR 7 Days #14 capsule 01/20/20 Unknown Rx CAP] guaiFENesin/CODEINE [Robitussin AC] 5 ml PO Q6H PRN #100 oral.liqd 02/16/20 Unknown Rx ED Review of Systems ROS: Stated complaint: SOB Other details as noted in HPI Comment: All other systems reviewed and negative Constitutional: denies: chills, fever Eyes: denies: eye pain, vision change ENT: denies: ear pain, throat pain Respiratory: cough, shortness of breath (intermittent) Cardiovascular: chest pain (chest wall pain) Gastrointestinal: denies: abdominal pain, vomiting Genitourinary: denies: dysuria, discharge Musculoskeletal: denies: back pain, arthralgia Skin: denies: rash, lesions Neurological: denies: headache, weakness Physical Exam - Physical Exam Vital Signs: Vital Signs 02/16/20 15:21 Temperature 98.5 F Pulse Rate 100 H Respiratory 18 Rate Blood Pressure 159/106 O2 Sat by Pulse 98 Oximetry Physical Exam: GENERAL: The patient is well-developed well-nourished. HENT: Normocephalic. Atraumatic. Patient has moist mucous membranes. EYES: Extraocular motions are intact. Pupils equal reactive to light bilater ally. NECK: Supple. Trachea is midline. CHEST/LUNGS: Clear to auscultation. Occasional bronchospastic cough heard during examination. No tachypnea or accessory muscle use. There is no respiratory distress noted. HEART/CARDIOVASCULAR: Irregular rhythm. No tachycardia. ABDOMEN: Abdomen is soft, nontender. Patient has normal bowel sounds. SKIN: Skin is warm and dry. NEURO: The patient is awake, alert, and oriented. The patient is cooperative. MUSCULOSKELETAL: There is no tenderness or deformity. Chronic right-sided weakness. There is no evidence of acute injury. ED Course Vital Signs 02/16/20 15:21 Temperature 98.5 F Pulse Rate 100 H Respiratory 18 Rate Blood Pressure 159/106 O2 Sat by Pulse 98 Oximetry ED Medical Decision Making - Lab Data Result diagrams: 02/16/20 15:55 02/16/20 15:55 - EKG Data -: EKG Interpreted by Me - EKG Data When compared to previous EKG there are: no significant change Interpretation: unchanged when compared t (01/20/20), other (Atrial fibrillation with rate of 103 bpm, Q waves to the anterior leads.) - Radiology Data Radiology results: report reviewed CT angio chest INDICATION / CLINICAL INFORMATION: Chest pain.. TECHNIQUE: Axial CT images were obtained after injection of Omnipaque 350, 100 cc IV injection. IV contrast using CTA protocol. 3 plane MIP / 3D reconstructions were produced. All CT scans at this location are performed using CT dose reduction for ALARA by means of automated exposure control. COMPARISON: None available. FINDINGS: For lung mass, infiltrate or pleural fluid. Mild groundglass opacity is scattered diffusely. No mediastinal mass or adenopathy. Negative for aneurysm, dissection or pulmonary embolus. Imaging of the upper abdomen demonstrates a large fatty liver. IMPRESSION: 1. Negative for pulmonary embolus. 2. Nonspecific groundglass opacity diffusely with mild heterogeneity. Mild edema, air trapping/interstitial disease and less likely atypical infection are possibilities. 3. Large, fatty liver. - Medical Decision Making This patient presents to the emergency department with a 3 to 4-week history of shortness of breath and cough. He was seen here the beginning of January and diagnosed with bronchitis. Chest x-ray does not show any pneumonia, pleural effusions, or any other acute process. Vital signs stable throughout his ED course including being afebrile and no hypoxia. His labs have been unremarkable including CBC, metabolic panel and troponins x2. An EKG was done that shows atrial fibrillation but no signs of ST elevation [place]. The patient appears to be in chronic A. fib. He occasionally has a bronchospastic cough heard during examination but no tachypnea or accessory muscle use or signs of any respiratory distress. For all these reasons the patient appears safe for discharge home to follow-up with his primary care physician. He will be placed on Robitussin-AC for his cough and was given a dose of Decadron here. He will return to the emergency department with any worsening of his symptoms or any acute distress. Critical care attestation.: If time is entered above; I have spent that time in minutes in the direct care of this critically ill patient, excluding procedure time. ED Disposition Clinical Impression: Bronchitis Atrial fibrillation Qualifiers: Atrial fibrillation type: unspecified Qualified Code(s): I48.91 - Unspecified atrial fibrillation Disposition: TO HOME OR SELFCARE Is pt being admited?: No Condition: Stable Instructions: Chronic Bronchitis (ED) Additional Instructions: Please follow-up with your primary care physician in the next few days. Return to the emergency department with any worsening of your symptoms or any acute distress. You have been prescribed a medication that is sedating and therefore should not be taken prior to driving, working, and responsible for children and in no way should be mixed with alcohol of any quantity. Prescriptions: guaiFENesin/CODEINE [Robitussin AC] 5 ml PO Q6H PRN #100 oral.liqd PRN Reason: Cough Referrals: KIT NICHOLS MD [Primary Care Provider] - 3-5 Days Time of Disposition: 19:09 Heart Score - HEART Score History: Slightly suspicious EKG: Normal (A-fib but no ischemia) Age: 45-65 Risk factors: 1-2 risk factors Troponin: < normal limit HEART Score: 2 - Critical Actions Critical Actions: 0-3 pts:0.9-1.7%risk of adverse cardiac event.Candidate for discharge NIKKO score - Nikko Score Age > 65: (0) No Aspirin use within the Past 7 Days: (0) No 3 or more CAD Risk Factors: (0) No 2 or more Angina events in past 24 hrs: (1) Yes (If angina, more consistent with chest wall pain) Known CAD with more than 50% Stenosis: (0) No Elevated Cardiac Markers: (0) No ST Deviation Greater than 0.5mm: (0) No NIKKO Score: 1
[2020-02-17 06:39] VITALS: BP 158/105
== END 2020-02-16 21:20 | disposition home or self-care (01) ==
LOC: ED 15:00
DX: J40 Bronchitis, not specified as acute or chronic (principal); I48.91 Unspecified atrial fibrillation
CPT/HCPCS: 36415; 71045; 80048; 84484; 85025; 93005; 93010; 99284

== ENCOUNTER 2020-07-26 12:09 | Outpatient (CLI) | payer MEDICARE ==
[2020-07-26 12:53] LABS: Bilirubin,Urine NEG (Negative); Blood,Urine NEG (Negative); Color,Urine Amber (Yellow); Mucus,Urine FEW /HPF
[2020-07-26 12:55] LABS: Protein,Urine >500 mg/dL (Negative)
[2020-07-26 13:12] LABS: Albumin 3.4 g/dL (3.9-5); BUN/Creatinine Ratio 10; Blood Urea Nitrogen 14 mg/dL (9-20); Calcium 9.1 mg/dL (8.4-10.2); Hemolysis Index 2
[2020-07-26 14:48] LABS: Creatinine,Urine 268.8 mg/dL (0.1-20.0)
[2020-07-26 16:36] LABS: Protein/Creatinine Ratio,Urine 1.72
== END 2020-07-26 12:10 | disposition home or self-care (01) ==
LOC: LAB 12:09
PROVIDERS: ATTEND Internal Medicine Nephrology
DX: N18.3 Chronic kidney disease, stage 3 (moderate) (principal)
CPT/HCPCS: 36415; 80048; 81001; 82040; 82570; 83735; 84100; 84156; 84165; 84166; 86038

== ENCOUNTER 2020-10-24 18:50 | Emergency (ER) | payer MEDICARE ==
[2020-10-24] MEDS ORDERED: ASPIRIN 325 MG TAB PO ONE (19:43)
[2020-10-24 20:13] LABS: Basophils % (Auto) 0.8 % (0.0-1.8); Eosinophils # (Auto) 0.2 K/mm3 (0.0-0.4); Eosinophils % (Auto) 3.5 % (0.0-4.3); Hematocrit 44.7 % (35.5-45.6); Hemoglobin 14.9 gm/dl (11.8-15.2); Lymphocytes # (Auto) 1.2 K/mm3 (1.2-5.4); Lymphocytes % (Auto) 23.3 % (13.4-35.0); Mean Corpuscular HGB Conc 33 % (32-34); Mean Corpuscular Volume 84 fl (84-94); Monocytes # (Auto) 0.7 K/mm3 (0.0-0.8); Monocytes % (Auto) 12.8 % (0.0-7.3); Platelet Count 212 K/mm3 (140-440); Red Blood Count 5.32 M/mm3 (3.65-5.03); Red Cell Distribution Width 14.9 % (13.2-15.2)
[2020-10-24 20:29] LABS: BUN/Creatinine Ratio 9; Blood Urea Nitrogen 14 mg/dL (9-20); Calcium 9.1 mg/dL (8.4-10.2); Hemolysis Index 5
--- NOTE | 2020-10-24 20:44 | XRay Report ---
XR chest 1V ap INDICATION / CLINICAL INFORMATION: Chest Pain. COMPARISON: 05/10/2020 FINDINGS: SUPPORT DEVICES: Left-sided AICD again noted. HEART /PULMONARY VASCULATURE: Cardiac silhouette is slightly accentuated without significant pulmonar y vasculature congestion. LUNGS / PLEURA: No significant pulmonary or pleural abnormality. No pneumothorax. ADDITIONAL FINDINGS: No significant additional findings. IMPRESSION: 1. No acute findings. Signer Name: Mauricio Malloy MD Signed: 10/24/2020 8:39 PM Workstation Name: [id number]
--- NOTE | 2020-10-25 08:36 | Emergency Department Report ---
ED Chest Pain HPI - General Chief Complaint: Chest Pain Stated Complaint: CHEST PAIN Time Seen by Provider: 10/25/20 08:11 Source: patient Mode of arrival: Ambulatory Limitations: No Limitations - History of Present Illness Initial Comments: This is a 55-year-old -Lith[place]ian male presents to the emergency department with complaint of having some intermittent chest pain over the past 2 days. At the time of my examination the patient denies any chest pain, shortness of breath, palpitations, and only complains of some right-sided neck and/or gland pain. Patient is nonverbal with right-sided deficits secondary to a previous CVA. His is at bedside providing history. The patient does answer questions yes or no by shaking his head and will point to body parts. He also has a past medical history of CHF, hypertension, atrial fibrillation. His primary care physician is Dr. Davis and his stone layer is Dr. Nino. No recent travel or sick contacts at home. He did not take anything for his symptoms prior to presentation. - Related Data Home Medications Medication Instructions Recorded Confirmed Last Taken Furosemide [Lasix TAB] 40 mg PO Q12HR 10/25/20 10/25/20 Unknown Losartan [Cozaar] 50 mg PO QDAY 10/25/20 10/25/20 Unknown Metoprolol [Lopressor TAB] 100 mg PO BID 10/25/20 10/25/20 Unknown Oxybutynin [Ditropan] 5 mg PO DAILY 10/25/20 10/25/20 Unknown Rosuvastatin (Nf) [Crestor] 10 mg PO 10/25/20 Unknown dilTIAZem CD [Cardizem Cd] 240 mg PO QDAY 10/25/20 10/25/20 Unknown Previous Rx's Medication Instructions Recorded Last Taken Type Amiodarone [Cordarone 200 MG TAB] 200 mg PO QDAY #30 tablet 07/21/19 08/09/19 Rx Dabigatran [Pradaxa] 150 mg PO BID #60 capsule 07/21/19 08/09/19 Rx dilTIAZem CD [Cardizem CD] 240 mg PO QDAY #30 capsule 07/21/19 08/09/19 Rx Albuterol Sulfate [Proventil Hfa] 6.7 gm IH Q4H PRN #1 hfa.aer.ad 12/24/19 Unknown Rx Allergies Allergy/AdvReac Type Severity Reaction Status Date / Time No Known Allergies Allergy Verified 05/10/20 18:36 Heart Score - HEART Score History: Slightly suspicious EKG: Non-specific Age: 45-65 Risk factors: 1-2 risk factors Troponin: < normal limit HEART Score: 3 ED Review of Systems ROS: Stated complaint: CHEST PAIN Other details as noted in HPI Comment: All other systems reviewed and negative Constitutional: denies: chills, fever Eyes: denies: eye pain, vision change ENT: throat pain. denies: ear pain Respiratory: denies: cough, shortness of breath Cardiovascular: chest pain (Resolved) Gastrointestinal: denies: abdominal pain, vomiting Genitourinary: denies: dysuria, discharge Musculoskeletal: denies: back pain, joint swelling Skin: denies: rash, lesions Neurological: denies: headache, weakness ED Past Medical Hx - Past Medical History Hx Hypertension: Yes Hx CVA: Yes (right side deficits) Hx Congestive Heart Failure: Yes Hx Diabetes: No Hx Renal Disease: No Hx Arthritis: Yes (gout) Hx Headaches / Migraines: No Hx Seizures: No Hx Asthma: No Hx COPD: No Hx Dementia: No Hx HIV: No Additional medical history: irregular heart beat - Surgical History Hx Pacemaker: Yes Hx Internal Defibrillator: Yes - Social History Smoking Status: Former Smoker Substance Use Type: None - Medications Home Medications: Home Medications Medication Instructions Recorded Confirmed Last Taken Type Amiodarone [Cordarone 200 MG TAB] 200 mg PO QDAY #30 tablet 07/21/19 10/25/20 08/09/19 Rx Dabigatran [Pradaxa] 150 mg PO BID #60 capsule 07/21/19 10/25/20 08/09/19 Rx dilTIAZem CD [Cardizem CD] 240 mg PO QDAY #30 capsule 07/21/19 10/25/20 08/09/19 Rx Albuterol Sulfate [Proventil Hfa] 6.7 gm IH Q4H PRN #1 hfa.aer.ad 12/24/19 10/25/20 Unknown Rx Furosemide [Lasix TAB] 40 mg PO Q12HR 10/25/20 10/25/20 Unknown History Losartan [Cozaar] 50 mg PO QDAY 10/25/20 10/25/20 Unknown History Metoprolol [Lopressor TAB] 100 mg PO BID 10/25/20 10/25/20 Unknown History Oxybutynin [Ditropan] 5 mg PO DAILY 10/25/20 10/25/20 Unknown History Rosuvastatin (Nf) [Crestor] 10 mg PO 10/25/20 Unknown History dilTIAZem CD [Cardizem Cd] 240 mg PO QDAY 10/25/20 10/25/20 Unknown History ED Physical Exam - General Limitations: No Limitations - Other Other exam information: GENERAL: The patient is well-developed well-nourished. HENT: Normocephalic. Atraumatic. Patient has moist mucous membranes. Oropharynx is clear without tonsillar hypertrophy, erythema or exudates. EYES: Extraocular motions are intact. NECK: Supple. Trachea is midline. CHEST/LUNGS: Clear to auscultation. There is no respiratory distress noted. HEART/CARDIOVASCULAR: Irregular rhythm. No tachycardia. There is no murmur. ABDOMEN: Abdomen is soft, nontender. Patient has normal bowel sounds. There is no abdominal distention. SKIN: Skin is warm and dry. NEURO: The patient is awake and cooperative. Patient is nonverbal at baseline. Follows commands. MUSCULOSKELETAL: There is no tenderness or deformity. ED Course Vital Signs 10/24/20 10/25/20 10/25/20 19:42 04:40 08:23 Temperature 97.7 F 97.9 F Pulse Rate 76 77 74 Respiratory 16 17 Rate Blood Pressure 158/113 176/99 Blood Pressure [Left] O2 Sat by Pulse 95 95 Oximetry 10/25/20 10/25/20 08:31 08:40 Temperature Pulse Rate 82 78 Respiratory 23 18 Rate Blood Pressure 154/107 Blood Pressure 142/78 [Left] O2 Sat by Pulse 100 97 Oximetry - Reevaluation(s) Reevaluation #1: 10/25/20 14:37 Lab Results 10/24/20 10/24/20 10/24/20 Range/Units 19:50 19:50 23:26 WBC 5.2 (4.5-11.0) K/mm3 RBC 5.32 H (3.65-5.03) M/mm3 Hgb 14.9 (11.8-15.2) gm/dl Hct 44.7 (35.5-45.6) % MCV 84 (84-94) fl MCH 28 (28-32) pg MCHC 33 (32-34) % RDW 14.9 (13.2-15.2) % Plt Count 212 (140-440) K/mm3 Lymph % (Auto) 23.3 (13.4-35.0) % Sequoyah % (Auto) 12.8 H (0.0-7.3) % Eos % (Auto) 3.5 (0.0-4.3) % Baso % (Auto) 0.8 (0.0-1.8) % Lymph # (Auto) 1.2 (1.2-5.4) K/mm3 Sequoyah # (Auto) 0.7 (0.0-0.8) K/mm3 Eos # (Auto) 0.2 (0.0-0.4) K/mm3 Baso # (Auto) 0.0 (0.0-0.1) K/mm3 Seg Neutrophils % 59.6 (40.0-70.0) % Seg Neutrophils # 3.1 (1.8-7.7) K/mm3 Sodium 139 (137-145) mmol/L Potassium 4.1 (3.6-5.0) mmol/L Chloride 103.6 (98-107) mmol/L Carbon Dioxide 25 (22-30) mmol/L Anion Gap 15 mmol/L BUN 14 (9-20) mg/dL Creatinine 1.5 H (0.8-1.3) mg/dL Estimated GFR 59 ml/min BUN/Creatinine Ratio 9 % Glucose 88 (75-100) mg/dL Calcium 9.1 (8.4-10.2) mg/dL Troponin T < 0.010 < 0.010 (0.00-0.029) ng/mL NIKKO score - Nikko Score Age > 65: (0) No Aspirin use within the Past 7 Days: (0) No 3 or more CAD Risk Factors: (0) No 2 or more Angina events in past 24 hrs: (1) Yes (If angina, more consistent with chest wall pain) Known CAD with more than 50% Stenosis: (0) No Elevated Cardiac Markers: (0) No ST Deviation Greater than 0.5mm: (0) No NIKKO Score: 1 ED Medical Decision Making - Lab Data Result diagrams: 10/24/20 19:50 10/24/20 19:50 - EKG Data -: EKG Interpreted by Me - EKG Data When compared to previous EKG there are: no significant change (02/16/20) Interpretation: other (Atrial fibrillation with a rate of 75. Normal axis, Q waves to the anteroseptal leads. No ST elevation [place]) - Radiology Data Radiology results: image reviewed interpreted by me: Chest x-ray does not show any acute process. There are no pleural effusions, obvious pneumonia and there is no pneumothorax. No significant cardiomegaly. - Medical Decision Making This patient presents to the emergency department initially with the complaint of some chest pain that had started the previous evening. The patient is nonverbal secondary to a previous stroke, but does answer questions and follow commands. At the time of my examination he denies any chest pain, shortness of breath and his only concern is a sore throat and some right-sided neck and/or gland pain. He does not have any tonsil hypertrophy, erythema or exudates and does not appear consistent with strep pharyngitis, peritonsillar abscess, retropharyngeal abscess, or any concerning otolaryngology process. Patient EKG shows atrial fibrillation with a controlled rate, but no morphology consistent with ST elevation myocardial infarction. The patient has a history of atrial fibrillation and is anticoagulated on Pradaxa. Chest x-ray does not show any pneumonia, pleural effusions, pneumothorax, or any other acute process. Patient's labs have been mostly unremarkable including CBC, metabolic panel and negative troponins x2. The patient is low on the heart and NIKKO score. He has good outpatient follow- up with primary care and cardiology. He currently denies any chest pain or shortness of breath. For all these reasons the patient appears safe for discharge home at this time. He has been instructed to follow-up with his doctors outpatient, but to return to the closest emergency department with any return of his chest pain, or with any acute distress. Critical Care Time: No Critical care attestation.: If time is entered above; I have spent that time in minutes in the direct care of this critically ill patient, excluding procedure time. ED Disposition Clinical Impression: Atrial fibrillation Qualifiers: Atrial fibrillation type: unspecified Qualified Code(s): I48.91 - Unspecified atrial fibrillation Pharyngitis Qualifiers: Pharyngitis/tonsillitis etiology: unspecified etiology Qualified Code(s): J02.9 - Acute pharyngitis, unspecified Hypertension Qualifiers: Hypertension type: essential hypertension Qualified Code(s): I10 - Essential (primary) hypertension Chest pain Qualifiers: Chest pain type: unspecified Qualified Code(s): R07.9 - Chest pain, unspecified Disposition: TO HOME OR SELFCARE Is pt being admited?: No Condition: Stable Instructions: Pharyngitis, Nonspecific Chest Pain, Adult, Hypertension, Adult, Chest Pain (ED), Hypertension (ED) Additional Instructions: Please follow-up with your primary care physician and stone layer in the next few days. Return to the closest emergency department with any return of your chest pain, worsening of your symptoms, new or concerning symptoms not previously addressed during this emergency department visit, or with any acute distress. Take all of your medications as prescribed. Try to stay away from foods that are high in salt and caffeinated products. Keep a blood pressure log. Referrals: KIT DAVIS MD [Primary Care Provider] - 2-3 Days NATALIO NINO MD [Staff Physician] - 2-3 Days Time of Disposition: 08:40
[2020-10-25 10:27] VITALS: BP 142/78
== END 2020-10-25 08:40 | disposition home or self-care (01) ==
LOC: ED 18:50
DX: R07.89 Other chest pain (principal); J02.9 Acute pharyngitis, unspecified; I48.91 Unspecified atrial fibrillation; I10 Essential (primary) hypertension; M10.9 Gout, unspecified; Z86.73 Personal history of transient ischemic attack (TIA), and cerebral infarction without residual deficits; Z79.899 Other long term (current) drug therapy
CPT/HCPCS: 36415; 71045; 80048; 84484; 85025; 93005

== ENCOUNTER 2021-03-06 19:19 | Inpatient (IN) | payer MEDICARE ==
[2021-03-06] MEDS ORDERED: ASPIRIN 325 MG TAB PO ONE (21:04)
[2021-03-06] MEDS ORDERED: hydrALAZINE 25 MG TAB PO ONE (21:05)
--- NOTE | 2021-03-06 21:05 | Event Note ---
ED Screening Note Date of service: 03/06/21 Time: 21:01 ED Screening Note: Patient is 55-year-old -Malagasy male with a history of hypertension, CHF s/p pacemaker placement, and CVA who presents to the ED with complaint of acute onset persistent shortness of breath and intermittent left-sided chest pain for the last 1 week, worse in the last 2 days. Per family states that the patient has been complaining of worsening shortness of breath with exertion. Family states the patient denies dizziness, cough, fever, chills, nausea, vomiting, diarrhea, heavy lifting or fall, neck pain, headache, abdominal pain, numbness and tingling or weakness of upper and lower extremities bilaterally. This initial assessment/diagnostic orders/clinical plan/treatment(s) is/are subject to change based on patients health status, clinical progression and re- assessment by fellow clinical providers in the ED. Further treatment and workup at subsequent clinical providers discretion. Patient/guardian urged not to elope from the ED as their condition may be serious if not clinically assessed and managed. Initial orders include: CBC, CMP, troponin, BNP, chest x-ray, PT /INR, PTT and EKG
--- NOTE | 2021-03-06 21:35 | XRay Report ---
CHEST 1 VIEW 03/06/2021 9:22 PM INDICATION / CLINICAL INFORMATION: chest pain, dyspnea. COMPARISON: 10/24/2020. FINDINGS: SUPPORT DEVICES: Left-sided cardiac conduction device is unchanged. HEART / MEDIASTINUM: Stable cardiomegaly. LUNGS / PLEURA: There is mild pulmonary vascular congestion with interstitial prominence predominantl y in the right lung base. No pneumothorax. ADDITIONAL FINDINGS: No significant additional findings. IMPRESSION: 1. Stable cardiomegaly with mild pulmonary vascular congestion and features of very mild pulmonary ed link. Signer Name: Lobo Erwin MD Signed: 03/06/2021 9:31 PM Workstation Name: [id number]
[2021-03-06 21:42] LABS: Basophils # (Auto) 0.1 K/mm3 (0.0-0.1); Basophils % (Auto) 2.1 % (0.0-1.8); Eosinophils # (Auto) 0.2 K/mm3 (0.0-0.4); Eosinophils % (Auto) 3.7 % (0.0-4.3); Hematocrit 48.3 % (35.5-45.6); Hemoglobin 16.3 gm/dl (11.8-15.2); Lymphocytes # (Auto) 2.2 K/mm3 (1.2-5.4); Lymphocytes % (Auto) 32.4 % (13.4-35.0); Mean Corpuscular HGB Conc 34 % (32-34); Mean Corpuscular Volume 85 fl (84-94); Monocytes # (Auto) 0.7 K/mm3 (0.0-0.8); Monocytes % (Auto) 10.4 % (0.0-7.3); Platelet Count 249 K/mm3 (140-440); Red Blood Count 5.67 M/mm3 (3.65-5.03); Red Cell Distribution Width 14.1 % (13.2-15.2)
[2021-03-06 21:50] LABS: INR 1.51 (0.87-1.13)
[2021-03-06 21:52] LABS: Partial Thromboplastin Time 51.7 Sec. (24.2-36.6)
[2021-03-06 22:01] LABS: Alanine Aminotransferase 21 units/L (7-56); Albumin 4.3 g/dL (3.9-5); BUN/Creatinine Ratio 11; Blood Urea Nitrogen 21 mg/dL (9-20); Calcium 9.3 mg/dL (8.4-10.2); Hemolysis Index 20
[2021-03-07] MEDS ORDERED: FUROSEMIDE 40 MG/4 ML INJ IV ONE ×2 (00:36→05:20)
[2021-03-07] MEDS ORDERED: hydrALAZINE 20 MG/1 ML INJ IV ONE (04:03)
[2021-03-07] MEDS ORDERED: NITROGLYCERIN 0.4 MG TAB SUBL SL PRN (04:03)
--- NOTE | 2021-03-07 04:14 | Emergency Department Report ---
ED General Adult HPI - General Chief complaint: Dyspnea/Respdistress Stated complaint: Chest pain, defibrillator PUI?: No Time Seen by Provider: 03/07/21 04:02 Source: patient, family, RN notes reviewed, old records reviewed Mode of arrival: Ambulatory Limitations: Physical Limitation, Other (Patient minimally verbal secondary to a stroke.) - History of Present Illness Initial comments: The patient was evaluated in the emergency department for symptoms described in the history of present illness. He/she was evaluated in the context of the global COVID-19 pandemic, which necessitated consideration that the patient might be at risk for infection with the virus that causes COVID-19. Institutional protocols and algorithms that pertain to the evaluation of patients at risk for COVID-19 are in a state of rapid change based on information released by regulatory bodies including the CDC and federal and state organizations. These policies and algorithms were followed during the patient's care in the emergency department. Please note that these policies, procedures and recommendations changed on a rapid basis. Primary CARE doctor: Dr Davis Cardiology: Dr Nino Past medical history: CHF, EF 30 to 35%, permanent A. 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 He is accompanied by his , who provides most of the history. Patient's indicates that the patient felt like he was having chest pain yesterday. He also felt like his defibrillator activated or shocked him at least once. Patient's indicates that the patient is compliant with his medications, including Pradaxa, denies travel, posterior leg pain, leg swelling, DVT and pulmonary embolism risk factors. Apparently, the patient's ICD is "at the end of life", as per his , he is scheduled to follow-up with his account manager b2b by the end of the month for repeat evaluation. The patient himself is awake, alert, follows commands, and is able to understand spoken and written word. Secondary to his stroke, he is not verbal. However, he indicates he is not having headache, neck pain, abdominal pain, hematemesis, bright red blood per rectum. No Covid exposure symptomatology. Patient has n taken aspirin recently, as per his . No erectile dysfunction medication utilization. The patient indicates his chest pain does not radiate t o his back, arms or neck. It is basically resolved at this time -: Sudden Location: chest Radiation: non-radiation Quality: other (Patient does not describe qualitative nature of symptoms) Consistency: now resolved Improves with: other (Patient does not describe exacerbating factors or relieving factor) - Related Data Home Medications Medication Instructions Recorded Confirmed Last Taken Furosemide [Lasix TAB] 40 mg PO Q12HR 10/25/20 03/07/21 Unknown Metoprolol [Lopressor TAB] 100 mg PO BID 10/25/20 03/07/21 Unknown Oxybutynin [Ditropan] 5 mg PO DAILY 10/25/20 03/07/21 Unknown Rosuvastatin (Nf) [Crestor] 10 mg PO DAILY 10/25/20 03/07/21 Unknown dilTIAZem CD [Cardizem CD] 240 mg PO QDAY 10/25/20 03/07/21 Unknown Previous Rx's Medication Instructions Recorded Last Taken Type dilTIAZem CD [Cardizem CD] 240 mg PO QDAY #30 capsule 07/21/19 08/09/19 Rx Albuterol Sulfate [Proventil Hfa] 6.7 gm IH Q4H PRN #1 hfa.aer.ad 12/24/19 Unknown Rx Spironolactone [Aldactone] 25 mg PO QDAY #30 tablet 03/10/21 Unknown Rx Valsartan [Diovan] 160 mg PO BID #60 tablet 03/10/21 Unknown Rx Warfarin [Coumadin] 5 mg PO QDAY #30 tablet 03/10/21 Unknown Rx Allergies Allergy/AdvReac Type Severity Reaction Status Date / Time No Known Allergies Allergy Verified 05/10/20 18:36 ED Review of Systems ROS: Stated complaint: CHEST PAIN/SOB Other details as noted in HPI Constitutional: other (Denies loss of taste and smell). denies: fever Eyes: denies: eye discharge ENT: denies: congestion Respiratory: shortness of breath, other (Edema, chronic shortness of) Cardiovascular: chest pain, edema, other (Possible defibrillator activation) Gastrointestinal: denies: abdominal pain, nausea, vomiting, hematemesis, melena, hematochezia Genitourinary: denies: dysuria Musculoskeletal: myalgia Neurological: weakness (Chronic weakness) Hematological/Lymphatic: denies: easy bleeding ED Past Medical Hx - Past Medical History Previous Medical History?: Yes Hx Hypertension: Yes Hx CVA: Yes (right side deficits) Hx Congestive Heart Failure: Yes Hx Diabetes: No Hx Renal Disease: No Hx Arthritis: Yes (gout) Hx Headaches / Migraines: No Hx Seizures: No Hx Asthma: No Hx COPD: No Hx Dementia: No Hx HIV: No Additional medical history: irregular heart beat - Surgical History Past Surgical History?: Yes Hx Pacemaker: Yes Hx Internal Defibrillator: Yes - Social History Smoking Status: Former Smoker Substance Use Type: None - Medications Home Medications: Home Medications Medication Instructions Recorded Confirmed Last Taken Type dilTIAZem CD [Cardizem CD] 240 mg PO QDAY #30 capsule 07/21/19 03/07/21 08/09/19 Rx Albuterol Sulfate [Proventil Hfa] 6.7 gm IH Q4H PRN #1 hfa.aer.ad 12/24/19 03/07/21 Unknown Rx Furosemide [Lasix TAB] 40 mg PO Q12HR 10/25/20 03/07/21 Unknown History Metoprolol [Lopressor TAB] 100 mg PO BID 10/25/20 03/07/21 Unknown History Oxybutynin [Ditropan] 5 mg PO DAILY 10/25/20 03/07/21 Unknown History Rosuvastatin (Nf) [Crestor] 10 mg PO DAILY 10/25/20 03/07/21 Unknown History dilTIAZem CD [Cardizem CD] 240 mg PO QDAY 10/25/20 03/07/21 Unknown History Spironolactone [Aldactone] 25 mg PO QDAY #30 tablet 03/10/21 Unknown Rx Valsartan [Diovan] 160 mg PO BID #60 tablet 03/10/21 Unknown Rx Warfarin [Coumadin] 5 mg PO QDAY #30 tablet 03/10/21 Unknown Rx ED Physical Exam - General Limitations: Physical Limitation, Other (Patient nonverbal) General appearance: alert, in no apparent distress, obese - Head Head exam: Present: atraumatic, normocephalic - Eye Eye exam: Present: normal appearance, EOMI. Absent: nystagmus - ENT ENT exam: Present: normal exam, normal orophraynx, mucous membranes moist, normal external ear exam - Neck Neck exam: Present: normal inspection, full ROM. Absent: tenderness, meningismus - Respiratory Respiratory exam: Present: rales (Faint rales noted bilaterally). Absent: respiratory distress - Cardiovascular Cardiovascular Exam: Present: regular rate, irregular rhythm, normal heart sounds. Absent: bradycardia, tachycardia, systolic murmur, diastolic murmur, rubs, gallop - GI/Abdominal GI/Abdominal exam: Present: soft. Absent: distended, tenderness, guarding, rebound, rigid, pulsatile mass - Rectal Rectal exam: Present: deferred - Extremities Exam Extremities exam: Present: pedal edema (3+ edema in the bilateral lower extremity), other (2+ pulses noted in the bilateral upper and lower extremities. There is no palpable cord. negative Homans sign. Muscular compartments are soft. The pelvis is stable.). Absent: normal inspection (Contracture noted in the right upper extremity. Swelling noted in the right upper extremity.), calf tenderness - Back Exam Back exam: Present: normal inspection. Absent: tenderness, CVA tenderness (R), CVA tenderness (L), paraspinal tenderness, vertebral tenderness - Neurological Exam Neurological exam: Present: alert, other (There is no facial droop. The tongue is midline. There is 5 out of 5 strength left arm, and bilateral lower extremities. Chronic weakness and contracture in the right upper extremity.) - Psychiatric Psychiatric exam: Present: normal mood - Skin Skin exam: Present: warm, dry, intact, normal color. Absent: rash ED Course Vital Signs 03/06/21 03/06/21 03/07/21 20:57 21:57 03:36 Temperature 98.6 F 98.3 F Pulse Rate 100 H 96 H 86 Respiratory 18 18 Rate Blood Pressure 203/138 202/128 193/131 Blood Pressure [Left] O2 Sat by Pulse 98 96 Oximetry 03/07/21 03/07/21 03/07/21 04:11 04:22 04:39 Temperature 98.1 F 98.2 F Pulse Rate 90 104 H 101 H Respiratory 21 20 Rate Blood Pressure 197/134 Blood Pressure 197/134 178/101 [Left] O2 Sat by Pulse 96 100 Oximetry - Consultations Consultation #1: 03/07/21 05:21 Discussed history, physical, pertinent findings with cardiology on-call, Dr. Conway, who agrees with plan of care, cardiology will follow in consultation ED Medical Decision Making - Lab Data Result diagrams: 03/06/21 21:16 03/10/21 05:06 Vital Signs 03/06/21 03/06/21 03/07/21 20:57 21:57 03:36 Temperature 98.6 F 98.3 F Pulse Rate 100 H 96 H 86 Respiratory 18 18 Rate Blood Pressure 203/138 202/128 193/131 Blood Pressure [Left] O2 Sat by Pulse 98 96 Oximetry 03/07/21 03/07/21 03/07/21 04:11 04:22 04:39 Temperature 98.1 F 98.2 F Pulse Rate 90 104 H 101 H Respiratory 21 20 Rate Blood Pressure 197/134 Blood Pressure 197/134 178/101 [Left] O2 Sat by Pulse 96 100 Oximetry Lab Results 03/06/21 03/06/21 03/06/21 Range/Units 21:16 21:16 21:16 WBC 6.7 (4.5-11.0) K/mm3 RBC 5.67 H (3.65-5.03) M/mm3 Hgb 16.3 H (11.8-15.2) gm/dl Hct 48.3 H (35.5-45.6) % MCV 85 (84-94) fl MCH 29 (28-32) pg MCHC 34 (32-34) % RDW 14.1 (13.2-15.2) % Plt Count 249 (140-440) K/mm3 Lymph % (Auto) 32.4 (13.4-35.0) % [place] % (Auto) 10.4 H (0.0-7.3) % Eos % (Auto) 3.7 (0.0-4.3) % Baso % (Auto) 2.1 H (0.0-1.8) % Lymph # (Auto) 2.2 (1.2-5.4) K/mm3 [place] # (Auto) 0.7 (0.0-0.8) K/mm3 Eos # (Auto) 0.2 (0.0-0.4) K/mm3 Baso # (Auto) 0.1 (0.0-0.1) K/mm3 Seg Neutrophils % 51.4 (40.0-70.0) % Seg Neutrophils # 3.4 (1.8-7.7) K/mm3 PT 18.2 H (12.2-14.9) Sec. INR 1.51 H (0.87-1.13) APTT 51.7 H (24.2-36.6) Sec. Sodium 140 (137-145) mmol/L Potassium 3.5 L (3.6-5.0) mmol/L Chloride 100.5 (98-107) mmol/L Carbon Dioxide 28 (22-30) mmol/L Anion Gap 15 mmol/L BUN 21 H (9-20) mg/dL Creatinine 1.9 H (0.8-1.3) mg/dL Estimated GFR 45 ml/min BUN/Creatinine Ratio 11 % Glucose 99 (75-100) mg/dL Calcium 9.3 (8.4-10.2) mg/dL Magnesium (1.7-2.3) mg/dL Total Bilirubin 1.10 (0.1-1.2) mg/dL AST 20 (5-40) units/L ALT 21 (7-56) units/L Alkaline Phosphatase 75 (35-129) units/L Total Creatine Kinase (55-170) units/L Troponin T < 0.010 (0.00-0.029) ng/mL NT-Pro-B Natriuret Pep 5504 H (0-900) pg/mL Total Protein 7.3 (6.3-8.2) g/dL Albumin 4.3 (3.9-5) g/dL Albumin/Globulin Ratio 1.4 % 03/06/21 03/07/21 Range/Units 21:36 00:47 WBC (4.5-11.0) K/mm3 RBC (3.65-5.03) M/mm3 Hgb (11.8-15.2) gm/dl Hct (35.5-45.6) % MCV (84-94) fl MCH (28-32) pg MCHC (32-34) % RDW (13.2-15.2) % Plt Count (140-440) K/mm3 Lymph % (Auto) (13.4-35.0) % [place] % (Auto) (0.0-7.3) % Eos % (Auto) (0.0-4.3) % Baso % (Auto) (0.0-1.8) % Lymph # (Auto) (1.2-5.4) K/mm3 [place] # (Auto) (0.0-0.8) K/mm3 Eos # (Auto) (0.0-0.4) K/mm3 Baso # (Auto) (0.0-0.1) K/mm3 Seg Neutrophils % (40.0-70.0) % Seg Neutrophils # (1.8-7.7) K/mm3 PT (12.2-14.9) Sec. INR (0.87-1.13) APTT (24.2-36.6) Sec. Sodium (137-145) mmol/L Potassium (3.6-5.0) mmol/L Chloride (98-107) mmol/L Carbon Dioxide (22-30) mmol/L Anion Gap mmol/L BUN (9-20) mg/dL Creatinine (0.8-1.3) mg/dL Estimated GFR ml/min BUN/Creatinine Ratio % Glucose (75-100) mg/dL Calcium (8.4-10.2) mg/dL Magnesium 1.80 (1.7-2.3) mg/dL Total Bilirubin (0.1-1.2) mg/dL AST (5-40) units/L ALT (7-56) units/L Alkaline Phosphatase (35-129) units/L Total Creatine Kinase 283 H (55-170) units/L Troponin T < 0.010 (0.00-0.029) ng/mL NT-Pro-B Natriuret Pep (0-900) pg/mL Total Protein (6.3-8.2) g/dL Albumin (3.9-5) g/dL Albumin/Globulin Ratio % - EKG Data -: EKG Interpreted by Il - EKG Data 03/07/21 05:09 The EKG is interpreted at 9: 10 PM A. fib, 83 bpm, normal axis, QTC 503 ms. PVC, poor R wave progression. This EKG is not a STEMI. - Radiology Data Radiology results: pending, report reviewed, image reviewed [facility] [address] [place] [address] XRay Report Signed Patient: NICK WILKINS MR#: [id number] : 1965 Acct:[id number] Age/Sex: 55 / M ADM Date: 03/06/21 Loc: ED Attending Dr: Ordering Physician: TOM NIETO Date of Service: 03/06/21 Procedure(s): XR chest 1V ap Accession Number(s): [id number] cc: TOM NIETO Fluoro Time In Minutes: CHEST 1 VIEW 03/06/2021 9:22 PM INDICATION / CLINICAL INFORMATION: chest pain, dyspnea. COMPARISON: 10/24/2020. FINDINGS: SUPPORT DEVICES: Left-sided cardiac conduction device is unchanged. HEART / MEDIASTINUM: Stable cardiomegaly. LUNGS / PLEURA: There is mild pulmonary vascular congestion with interstitial prominence predominantly in the right lung base. No pneumothorax. ADDITIONAL FINDINGS: No significant additional findings. IMPRESSION: 1. Stable cardiomegaly with mild pulmonary vascular congestion and features of very mild pulmonary edema. Signer Name: Lobo West MD Signed: 03/06/2021 9:31 PM Workstation Name: [id number] Transcribed By: SS Dictated By: LOBO WEST Electronically Authenticated By: LOBO WEST Signed Date/Time: 03/06/212130 DD/ 29 - Medical Decision Making Differential diagnosis, including but not limited to: Congestive heart failure, noncompliance, defibrillator activation, electrolyte derangement, acute coronary syndrome, hypertensive urgency, cardiorenal syndrome Assessment and plan: 55-year-old gentleman, who is anticoagulated, who denies DVT and pulmonary embolism risk factors, who is low risk by Wells criteria for pulmonary embolism, with a complaint of chest pain, feeling like his [employer] defibrillator has activated, also found to be hypertensive, with evidence of CHF, hypertensive urgency, lower extremity edema, laboratory studies suggestive of possible cardiorenal syndrome. Patient at moderate risk for major adverse cardiac event as per heart score. Start antihypertensive therapy, as needed nitroglycerin, high-dose Lasix, aspirin therapy. We will defer to inpatient team to coordinate with [employer] to have his device interrogated. We will place a consultation to [facility] cardiology to assist with inpatient management. Secretarial staff has made multiple phone calls and attempts to contact cardiology on-call, however, the answering service is not able to place a call secondary to what appears to be technical issues at this time. Patient's blood pressure is improved, he is saturating well on room air, I do not require emergency cardiology consultation at this time, I would prefer to discuss the patient's care with cardiology as a matter of courtesy. In any event, the patient and are amenable to admission and hospitalization for the aforementioned. The hospital physician, Dr. Church, will admit patient to the medical service. Blood pressure is improved after initial interventions. Critical Care Time: Yes Critical care time in (mins) excluding proc time.: 35 Critical care attestation.: If time is entered above; I have spent that time in minutes in the direct care of this critically ill patient, excluding procedure time. ED Disposition Clinical Impression: Atrial fibrillation, Acute exacerbation of CHF (congestive heart failure), Defibrillator discharge, Acute chest pain, Hypertensive urgency, Anticoagulated, Cardiorenal syndrome Disposition: OP ADMIT IP TO THIS HOSP Is pt being admited?: Yes Does the pt Need Aspirin: No Condition: Serious Heart Score - HEART Score History: Moderately suspicious EKG: Non-specific Age: 45-65 Risk factors: 1-2 risk factors Troponin: < normal limit HEART Score: 4 - EKG Read Time Time EKG Completed: 21:04 EKG Read Time: 21:10 - Critical Actions Critical Actions: 4-6 pts:12-16.6% risk of adverse cardiac event. Should be admitted
[2021-03-07] MEDS ORDERED: hydrALAZINE 20 MG/1 ML INJ IV PRN (05:13)
--- NOTE | 2021-03-07 05:18 | History and Physical Report ---
History of Present Illness Date of examination: 03/07/21 Date of admission: 03/07/21 04:15 Chief complaint: Dyspnea respiratory distress History of present illness: 55-year-old gentleman with past medical history of CHF, EF 30 to 35%, permanent A. 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 Chest pain was 2-3 over 10, chest pain does not radiate to the back arms or neck. He also felt like his defibrillator activated or shocked him at least once. Patient's indicates that the patient is compliant with his medications, including Pradaxa, denies travel. Patient is not verbal. However, he indicates he is not having headache, neck pain, abdominal pain, hematemesis, bright red blood per rectum. No Covid exposure symptomatology. In the emergency room patient is found to have acute CHF exacerbation. Patient also complained of swelling of the legs. proBNP is 5504 and chest x-ray shows stable cardiomegaly with mild pulmonary vascular congestion and features of very mild pulmonary edema Past History Past Medical History: atrial fib, heart failure, stroke, other (Obesity) Medications and Allergies Allergies Allergy/AdvReac Type Severity Reaction Status Date / Time No Known Allergies Allergy Verified 05/10/20 18:36 Home Medications Medication Instructions Recorded Confirmed Last Taken Type Amiodarone [Cordarone 200 MG TAB] 200 mg PO QDAY #30 tablet 07/21/19 10/25/20 08/09/19 Rx Dabigatran [Pradaxa] 150 mg PO BID #60 capsule 07/21/19 10/25/20 08/09/19 Rx dilTIAZem CD [Cardizem CD] 240 mg PO QDAY #30 capsule 07/21/19 10/25/20 08/09/19 Rx Albuterol Sulfate [Proventil Hfa] 6.7 gm IH Q4H PRN #1 hfa.aer.ad 12/24/19 10/25/20 Unknown Rx Furosemide [Lasix TAB] 40 mg PO Q12HR 10/25/20 10/25/20 Unknown History Losartan [Cozaar] 50 mg PO QDAY 10/25/20 10/25/20 Unknown History Metoprolol [Lopressor TAB] 100 mg PO BID 10/25/20 10/25/20 Unknown History Oxybutynin [Ditropan] 5 mg PO DAILY 10/25/20 10/25/20 Unknown History Rosuvastatin (Nf) [Crestor] 10 mg PO 10/25/20 Unknown History dilTIAZem CD [Cardizem Cd] 240 mg PO QDAY 10/25/20 10/25/20 Unknown History Active Meds: Active Medications Amiodarone HCl (Amiodarone 200 Mg Tab) 200 mg PO QDAY MARSHA Furosemide (Furosemide 40 Mg/4 Ml Inj) 60 mg IV ONCE ONE Stop: 03/07/21 05:21 Last Admin: 03/07/21 04:55 Dose: Not Given Documented by: Nitroglycerin (Nitroglycerin 0.4 Mg Tab Subl) 0.4 mg SL .Q5MIN PRN PRN Reason: Chest Pain Review of Systems Cardiovascular: chest pain, orthopnea, shortness of breath, dyspnea on exertion Respiratory: shortness of breath Exam - Constitutional Vitals: Temp Pulse Resp BP Pulse Ox 98.2 F 101 H 20 178/101 100 03/07/21 04:39 03/07/21 04:39 03/07/21 04:39 03/07/21 04:39 03/07/21 04:39 General appearance: Present: no acute distress, well-nourished - EENT Eyes: Present: PERRL ENT: hearing intact, clear oral mucosa - Neck Neck: Present: supple, normal ROM - Respiratory Respiratory effort: normal Respiratory: bilateral: diminished, rales - Cardiovascular Rhythm: irregularly irregular Heart Sounds: Present: S1 & S2. Absent: rub, click - Extremities Extremities: pulses symmetrical Extremity abnormal: edema Peripheral Pulses: within normal limits - Abdominal General gastrointestinal: Present: soft, non-tender, non-distended, normal bowel sounds Male genitourinary: Present: normal - Integumentary Integumentary: Present: clear, warm, dry - Musculoskeletal Musculoskeletal: gait normal, strength equal bilaterally - Psychiatric Psychiatric: appropriate mood/affect, intact judgment & insight - Neurologic Neurologic: CNII-XII intact, moves all extremities HEART Score - HEART Score Age: 45-65 Risk factors: > 3 risk factors or hx of atherosclerotic disease Troponin: Troponin T < 0.010 ng/mL (0.00-0.029) 03/07/21 00:47 Troponin: < normal limit Results - Labs CBC & Chem 7: 03/06/21 21:16 03/06/21 21:16 Labs: Laboratory Last Values WBC 6.7 K/mm3 (4.5-11.0) 03/06/21 21:16 RBC 5.67 M/mm3 (3.65-5.03) H 03/06/21 21:16 Hgb 16.3 gm/dl (11.8-15.2) H 03/06/21 21:16 Hct 48.3 % (35.5-45.6) H 03/06/21 21:16 MCV 85 fl (84-94) 03/06/21 21:16 MCH 29 pg (28-32) 03/06/21 21:16 MCHC 34 % (32-34) 03/06/21 21:16 RDW 14.1 % (13.2-15.2) 03/06/21 21:16 Plt Count 249 K/mm3 (140-440) 03/06/21 21:16 Lymph % (Auto) 32.4 % (13.4-35.0) 03/06/21 21:16 [place] % (Auto) 10.4 % (0.0-7.3) H 03/06/21 21:16 Eos % (Auto) 3.7 % (0.0-4.3) 03/06/21 21:16 Baso % (Auto) 2.1 % (0.0-1.8) H 03/06/21 21:16 Lymph # (Auto) 2.2 K/mm3 (1.2-5.4) 03/06/21 21:16 [place] # (Auto) 0.7 K/mm3 (0.0-0.8) 03/06/21 21:16 Eos # (Auto) 0.2 K/mm3 (0.0-0.4) 03/06/21 21:16 Baso # (Auto) 0.1 K/mm3 (0.0-0.1) 03/06/21 21:16 Seg Neutrophils % 51.4 % (40.0-70.0) 03/06/21 21:16 Seg Neutrophils # 3.4 K/mm3 (1.8-7.7) 03/06/21 21:16 PT 18.2 Sec. (12.2-14.9) H 03/06/21 21:16 INR 1.51 (0.87-1.13) H 03/06/21 21:16 APTT 51.7 Sec. (24.2-36.6) H 03/06/21 21:16 Sodium 140 mmol/L (137-145) 03/06/21 21:16 Potassium 3.5 mmol/L (3.6-5.0) L 03/06/21 21:16 Chloride 100.5 mmol/L (98-107) 03/06/21 21:16 Carbon Dioxide 28 mmol/L (22-30) 03/06/21 21:16 Anion Gap 15 mmol/L 03/06/21 21:16 BUN 21 mg/dL (9-20) H 03/06/21 21:16 Creatinine 1.9 mg/dL (0.8-1.3) H 03/06/21 21:16 Estimated GFR 45 ml/min 03/06/21 21:16 BUN/Creatinine Ratio 11 % 03/06/21 21:16 Glucose 99 mg/dL (75-100) 03/06/21 21:16 Calcium 9.3 mg/dL (8.4-10.2) 03/06/21 21:16 Magnesium 1.80 mg/dL (1.7-2.3) 03/06/21 21:36 Total Bilirubin 1.10 mg/dL (0.1-1.2) 03/06/21 21:16 AST 20 units/L (5-40) 03/06/21 21:16 ALT 21 units/L (7-56) 03/06/21 21:16 Alkaline Phosphatase 75 units/L (35-129) 03/06/21 21:16 Total Creatine Kinase 283 units/L (55-170) H 03/06/21 21:36 Troponin T < 0.010 ng/mL (0.00-0.029) 03/07/21 00:47 NT-Pro-B Natriuret Pep 5504 pg/mL (0-900) H 03/06/21 21:16 Total Protein 7.3 g/dL (6.3-8.2) 03/06/21 21:16 Albumin 4.3 g/dL (3.9-5) 03/06/21 21:16 Albumin/Globulin Ratio 1.4 % 03/06/21 21:16 - Imaging and Cardiology Chest x-ray: image reviewed Assessment and Plan VTE prophylaxis?: Chemical Plan of care discussed with patient/family: Yes - Patient Problems (1) Acute exacerbation of CHF (congestive heart failure) Current Visit: Yes Status: Acute Qualifiers: Plan to address problem: Admit the patient to the medical telemetry. Cardiac diet. Fluid restriction. Lasix 40 mg IV every 12 hours. DuoNeb by nebulizer every 4 hours as needed. Will maintain input and output. Echocardiogram. Will consult cardiology for further evaluation and treatment (2) Acute chest pain Current Visit: Yes Status: Acute Plan to address problem: Patient got aspirin 325 mg in the ER. We will continue Lipitor 20 mg p.o. nightly. We will do the serial cardiac enzyme. We also do echocardiogram. Patient is on Pradaxa 150 mg p.o. twice daily. Will consult cardiology for evaluation (3) Defibrillator discharge Current Visit: Yes Status: Acute Plan to address problem: We will consult cardiology for evaluation of defibrillator (4) Hypertensive urgency Current Visit: Yes Status: Acute Plan to address problem: Patient is on hydralazine 10 mg p.o. every 6 hours as needed. We continue the losartan 50 mg p.o. daily metoprolol 100 mg p.o. twice daily and nitroglycerin we will also continue diltiazem CD 240 mg p.o. daily (5) Atrial fibrillation Current Visit: Yes Status: Chronic Qualifiers: Plan to address problem: Patient got aspirin 325 mg in the ER. We will continue Lipitor 20 mg p.o. nightly. We will do the serial cardiac enzyme. We also do echocardiogram. Patient is on Pradaxa 150 mg p.o. twice daily. Will consult cardiology for evaluation (6) ADAL (acute kidney injury) Current Visit: No Status: Acute Plan to address problem: We avoid the nephrotoxic drug. Recheck BMP in the morning. Will consult nephro logy if needed in the morning. (7) DVT prophylaxis Current Visit: No Status: Acute Plan to address problem: Patient is on Pradaxa 150 mg p.o. twice a day for DVT prophylaxis. Protonix 40 mg p.o. daily for GI prophylaxis. Patient is a full code
[2021-03-07] MEDS: FUROSEMIDE 40 MG/4 ML INJ IV SCH ×2 (06:18→18:08)
[2021-03-07] MEDS ORDERED: hydrALAZINE 25 MG TAB PO SCH (08:00)
--- NOTE | 2021-03-07 09:16 | Consultation ---
History of Present Illness Consult date: 03/07/21 Consult reason: chest pain, congestive heart failure History of present illness: This is a 55-year old M with a long-standing history of nonischemic cardiomyopathy and has an indwelling cardiac defibrillator. He also has permanent atrial fibrillation on rate control strategy and on pradaxa for anticoagulation. Recent device interrogation revealed his ICD generator near [place] and is planned for outpatient generator replacement. Patient was brought to this hospital with report of ICD discharge. In addition, there was report of shortness of breath. Patient denies unusual shortness of breath, dizziness and denies syncope. No edema. Chest x-ray shows mild interstitial edema. Initial laboratory studies shows acute renal failure, creatinine 1.9. 12-lead ECG is atrial fibrillation with a well controlled ventricular rate. Past History Past Medical History: atrial fib, heart failure, stroke, other (Obesity) Past Surgical History: Other (ICD) Social history: Medications and Allergies Allergies Allergy/AdvReac Type Severity Reaction Status Date / Time No Known Allergies Allergy Verified 05/10/20 18:36 Home Medications Medication Instructions Recorded Confirmed Last Taken Type Amiodarone [Cordarone 200 MG TAB] 200 mg PO QDAY #30 tablet 07/21/19 10/25/20 08/09/19 Rx Dabigatran [Pradaxa] 150 mg PO BID #60 capsule 07/21/19 10/25/20 08/09/19 Rx dilTIAZem CD [Cardizem CD] 240 mg PO QDAY #30 capsule 07/21/19 10/25/20 08/09/19 Rx Albuterol Sulfate [Proventil Hfa] 6.7 gm IH Q4H PRN #1 hfa.aer.ad 12/24/19 10/25/20 Unknown Rx Furosemide [Lasix TAB] 40 mg PO Q12HR 10/25/20 10/25/20 Unknown History Losartan [Cozaar] 50 mg PO QDAY 10/25/20 10/25/20 Unknown History Metoprolol [Lopressor TAB] 100 mg PO BID 10/25/20 10/25/20 Unknown History Oxybutynin [Ditropan] 5 mg PO DAILY 10/25/20 10/25/20 Unknown History Rosuvastatin (Nf) [Crestor] 10 mg PO 10/25/20 Unknown History dilTIAZem CD [Cardizem Cd] 240 mg PO QDAY 10/25/20 10/25/20 Unknown History Active Meds: Active Medications Amiodarone HCl (Amiodarone 200 Mg Tab) 200 mg PO QDAY [facility] Atorvastatin Calcium (Atorvastatin 20 Mg Tab) 20 mg PO QHS [facility] Dabigatran (Dabigatran 150 Mg Cap) 150 mg PO BID [facility]; Protocol Diltiazem HCl (Diltiazem Cd 240 Mg Cap) 240 mg PO QDAY [facility] Furosemide (Furosemide 40 Mg/4 Ml Inj) 40 mg IV BID@0600,1800 [facility] Last Admin: 03/07/21 06:18 Dose: 40 mg Documented by: Hydralazine HCl (Hydralazine 20 Mg/1 Ml Inj) 10 mg IV Q6H PRN PRN Reason: htn Hydralazine HCl (Hydralazine 25 Mg Tab) 50 mg PO Q8HR [facility] Losartan Potassium (Losartan 50 Mg Tab) 100 mg PO QDAY [facility] Metoprolol Tartrate (Metoprolol Tartrate 100 Mg Tab) 100 mg PO BID@0800,1700 [facility] Nitroglycerin (Nitroglycerin 0.4 Mg Tab Subl) 0.4 mg SL .Q5MIN PRN PRN Reason: Chest Pain Oxybutynin Chloride (Oxybutynin 5 Mg Tab) 5 mg PO DAILY [facility] Pantoprazole Sodium (Pantoprazole 40 Mg Tab) 40 mg PO QDAC [facility] Review of Systems Cardiovascular: chest pain, no palpitations, no edema, no syncope, no lightheadedness, no shortness of breath Physical Examination Vital Signs Temp Pulse Resp BP Pulse Ox 98.6 F 100 H 18 203/138 98 03/06/21 20:57 03/06/21 20:57 03/06/21 20:57 03/06/21 20:57 03/06/21 20:57 General appearance: no acute distress HEENT: Positive: PERRL Neck: Positive: trachea midline Cardiac: Positive: irregularly irregular Lungs: Positive: Decreased Breath Sounds Results 03/06/21 21:16 03/06/21 21:16 Cardiac Enzymes 03/06/21 Range/Units 21:16 AST 20 (5-40) units/L Coagulation 03/06/21 Range/Units 21:16 PT 18.2 H (12.2-14.9) Sec. INR 1.51 H (0.87-1.13) APTT 51.7 H (24.2-36.6) Sec. CBC 03/06/21 Range/Units 21:16 WBC 6.7 (4.5-11.0) K/mm3 RBC 5.67 H (3.65-5.03) M/mm3 Hgb 16.3 H (11.8-15.2) gm/dl Hct 48.3 H (35.5-45.6) % Plt Count 249 (140-440) K/mm3 Lymph # (Auto) 2.2 (1.2-5.4) K/mm3 [place] # (Auto) 0.7 (0.0-0.8) K/mm3 Eos # (Auto) 0.2 (0.0-0.4) K/mm3 Baso # (Auto) 0.1 (0.0-0.1) K/mm3 Comprehensive Metabolic Panel 03/06/21 Range/Units 21:16 Sodium 140 (137-145) mmol/L Potassium 3.5 L (3.6-5.0) mmol/L Chloride 100.5 (98-107) mmol/L Carbon Dioxide 28 (22-30) mmol/L BUN 21 H (9-20) mg/dL Creatinine 1.9 H (0.8-1.3) mg/dL Glucose 99 (75-100) mg/dL Calcium 9.3 (8.4-10.2) mg/dL AST 20 (5-40) units/L ALT 21 (7-56) units/L Alkaline Phosphatase 75 (35-129) units/L Total Protein 7.3 (6.3-8.2) g/dL Albumin 4.3 (3.9-5) g/dL Assessment and Plan Acute systolic heart failure s/t dietary indiscretions Permanent Afib, rate controlled on pradaxa for oral anticoagulation Nonischemic cardiomyopathy Presence of AICD ([employer]) Hypertension Prior CVA with aphasia Recommendations: Low sodium diet and fluid restriction. Will arrange for an ICD interrogation. Resume medical therapy for systolic heart failure and chronic atrial fibrillation.
[2021-03-07] MEDS ORDERED: LOSARTAN 50 MG TAB PO SCH ×2 (10:00)
[2021-03-07] MEDS ORDERED: AMIODARONE 200 MG TAB PO SCH (10:00)
[2021-03-07] MEDS ORDERED: DABIGATRAN 150 MG CAP PO SCH (10:00)
--- NOTE | 2021-03-07 10:18 | Progress Note ---
Assessment and Plan Assessment and plan: #Acute on chronic systolic heart failure Diuretics Monitor renal function closely Cardiology evaluation #ICD discharge ICD interrogation Cardiology recommendations appreciated #Hypertensive urgency Started on hydralazine PO Continue ARBs #ADAL on CKD Likely vasomotor nephropathy Avoid nephrotoxic medications BMP ordered. Nephrology consulted #Atrial fibrillation Continue metoprolol Pradaxa Cardiology following. #Continue resrt of home medications #DVT ppx - on pradaxa History Interval history: 03/07. Patient seen and examined at bedside this morning. On IV diuretics for congestive heart failure. Consulted nephrology for ADAL. Hospitalist Physical - Physical exam Narrative exam: VITAL SIGNS: Reviewed. GENERAL: Awake HEAD: No signs of head trauma. EYES: Pupils are equal. Extraocular motions intact. MOUTH: Oropharynx is normal. NECK: No adenopathy, no JVD. CHEST: Chest with diminished breath sounds bilaterally. No wheezes, rales, or rhonchi. CARDIAC: normal S1 and S2, without murmurs, gallops, or rubs. ABDOMEN: Soft, non tender and non distended. No rebound or guarding, and no masses palpated. Bowel Sounds normal. MUSCULOSKELETAL: No edema NEUROLOGIC EXAM: Alert and oriented x3. No focal neurologic deficits SKIN: No obvious lesions - Constitutional Vitals: Temp Pulse Resp BP Pulse Ox 97.5 F L 110 H 16 149/117 98 03/07/21 07:34 03/07/21 08:03 03/07/21 08:03 03/07/21 07:34 03/07/21 07:34 HEART Score - HEART Score EKG: Non-specific Age: 45-65 Risk factors: > 3 risk factors or hx of atherosclerotic disease Troponin: Troponin T < 0.010 ng/mL (0.00-0.029) 03/07/21 00:47 Troponin: < normal limit - Critical Actions Critical Actions: 4-6 pts:12-16.6% risk of adverse cardiac event. Should be admitted Results - Labs CBC & Chem 7: 03/06/21 21:16 03/06/21 21:16 Labs: Laboratory Last Values WBC 6.7 K/mm3 (4.5-11.0) 03/06/21 21:16 RBC 5.67 M/mm3 (3.65-5.03) H 03/06/21 21:16 Hgb 16.3 gm/dl (11.8-15.2) H 03/06/21 21:16 Hct 48.3 % (35.5-45.6) H 03/06/21 21:16 MCV 85 fl (84-94) 03/06/21 21:16 MCH 29 pg (28-32) 03/06/21 21:16 MCHC 34 % (32-34) 03/06/21 21:16 RDW 14.1 % (13.2-15.2) 03/06/21 21:16 Plt Count 249 K/mm3 (140-440) 03/06/21 21:16 Lymph % (Auto) 32.4 % (13.4-35.0) 03/06/21 21:16 [place] % (Auto) 10.4 % (0.0-7.3) H 03/06/21 21:16 Eos % (Auto) 3.7 % (0.0-4.3) 03/06/21 21:16 Baso % (Auto) 2.1 % (0.0-1.8) H 03/06/21 21:16 Lymph # (Auto) 2.2 K/mm3 (1.2-5.4) 03/06/21 21:16 [place] # (Auto) 0.7 K/mm3 (0.0-0.8) 03/06/21 21:16 Eos # (Auto) 0.2 K/mm3 (0.0-0.4) 03/06/21 21:16 Baso # (Auto) 0.1 K/mm3 (0.0-0.1) 03/06/21 21:16 Seg Neutrophils % 51.4 % (40.0-70.0) 03/06/21 21:16 Seg Neutrophils # 3.4 K/mm3 (1.8-7.7) 03/06/21 21:16 PT 18.2 Sec. (12.2-14.9) H 03/06/21 21:16 INR 1.51 (0.87-1.13) H 03/06/21 21:16 APTT 51.7 Sec. (24.2-36.6) H 03/06/21 21:16 Sodium 140 mmol/L (137-145) 03/06/21 21:16 Potassium 3.5 mmol/L (3.6-5.0) L 03/06/21 21:16 Chloride 100.5 mmol/L (98-107) 03/06/21 21:16 Carbon Dioxide 28 mmol/L (22-30) 03/06/21 21:16 Anion Gap 15 mmol/L 03/06/21 21:16 BUN 21 mg/dL (9-20) H 03/06/21 21:16 Creatinine 1.9 mg/dL (0.8-1.3) H 03/06/21 21:16 Estimated GFR 45 ml/min 03/06/21 21:16 BUN/Creatinine Ratio 11 % 03/06/21 21:16 Glucose 99 mg/dL (75-100) 03/06/21 21:16 Calcium 9.3 mg/dL (8.4-10.2) 03/06/21 21:16 Magnesium 1.80 mg/dL (1.7-2.3) 03/06/21 21:36 Total Bilirubin 1.10 mg/dL (0.1-1.2) 03/06/21 21:16 AST 20 units/L (5-40) 03/06/21 21:16 ALT 21 units/L (7-56) 03/06/21 21:16 Alkaline Phosphatase 75 units/L (35-129) 03/06/21 21:16 Total Creatine Kinase 283 units/L (55-170) H 03/06/21 21:36 Troponin T < 0.010 ng/mL (0.00-0.029) 03/07/21 00:47 NT-Pro-B Natriuret Pep 5504 pg/mL (0-900) H 03/06/21 21:16 Total Protein 7.3 g/dL (6.3-8.2) 03/06/21 21:16 Albumin 4.3 g/dL (3.9-5) 03/06/21 21:16 Albumin/Globulin Ratio 1.4 % 03/06/21 21:16 Active Medications - Current Medications Current Medications: Generic Name Dose Route Start Last Admin Trade Name Freq PRN Reason Stop Dose Admin Atorvastatin Calcium 20 mg 03/07/21 22:00 Atorvastatin 20 Mg Tab PO QHS [facility] Dabigatran 150 mg 03/07/21 10:00 Dabigatran 150 Mg Cap PO BID [facility] Protocol Diltiazem HCl 240 mg 03/07/21 10:00 Diltiazem Cd 240 Mg Cap PO QDAY [facility] Doxazosin Mesylate 2 mg 03/07/21 10:00 Doxazosin 1 Mg Tab PO BID [facility] Furosemide 40 mg 03/07/21 06:00 03/07/21 06:18 Furosemide 40 Mg/4 Ml Inj IV 40 mg BID@0600,1800 [facility] Administration Hydralazine HCl 10 mg 03/07/21 05:13 Hydralazine 20 Mg/1 Ml Inj IV Q6H PRN htn Metoprolol Tartrate 100 mg 03/07/21 08:00 Metoprolol Tartrate 100 Mg Tab PO BID@0800,1700 [facility] Nitroglycerin 0.4 mg 03/07/21 04:03 Nitroglycerin 0.4 Mg Tab Subl SL .Q5MIN PRN Chest Pain Oxybutynin Chloride 5 mg 03/07/21 10:00 Oxybutynin 5 Mg Tab PO DAILY [facility] Pantoprazole Sodium 40 mg 03/07/21 07:30 Pantoprazole 40 Mg Tab PO QDAC [facility] Spironolactone 25 mg 03/07/21 10:00 Spironolactone 25 Mg Tab PO QDAY [facility] Valsartan 160 mg 03/07/21 10:00 Valsartan 160mg Tab PO BID [facility]
[2021-03-07 11:51] LABS: Calcium 9.1 mg/dL (8.4-10.2)
[2021-03-07] MEDS: VALSARTAN 160MG TAB PO SCH ×2 (13:49→21:56)
[2021-03-07] MEDS: dilTIAZem CD 240 MG CAP PO SCH (13:50)
[2021-03-07] MEDS: METOPROLOL TARTRATE 100 MG TAB PO SCH ×2 (13:50→18:04)
[2021-03-07] MEDS: PANTOPRAZOLE 40 MG TAB PO SCH (13:50)
--- NOTE | 2021-03-07 17:58 | Event Note ---
Date: 03/07/21 Patient's echocardiogram shows a severely dilated left atrium, with extensive echocardiographic smoke, highly suggestive of an elevated thrombosis risk. This finding is despite chronic therapy with Pradaxa. We will recommend a switch in the patient's oral anticoagulation to warfarin, target INR of 2.0-3.0. We will discontinue Pradaxa, and start subcutaneous heparin or Lovenox as a bridge to therapeutic warfarin levels.
[2021-03-07] MEDS: SPIRONOLACTONE 25 MG TAB PO SCH (18:06)
[2021-03-07] MEDS: DOXAZOSIN 1 MG TAB PO SCH ×2 (18:06→21:57)
[2021-03-07] MEDS: OXYBUTYNIN 5 MG TAB PO SCH (18:07)
[2021-03-07] MEDS: WARFARIN 7.5 MG TAB PO SCH (21:56)
[2021-03-08 05:34] LABS: INR 1.47 (0.87-1.13)
[2021-03-08 05:41] LABS: Calcium 8.6 mg/dL (8.4-10.2)
[2021-03-08] MEDS: FUROSEMIDE 40 MG/4 ML INJ IV SCH ×2 (06:49→18:04)
[2021-03-08] MEDS ORDERED: POTASSIUM CHLORIDE ER 20 MEQ TAB PO NR (08:06)
--- NOTE | 2021-03-08 09:33 | Electrocardiograph Report ---
[facility] Test Date: 2021-03-06 Test Time: 21:04:43 Pat Name: NICK WILKINS Department: Room: A468 1 Gender: M Bmx Rider: YARI : 1965 Requested By: AVANI CASTILLO Order Number: [id number] Reading MD: Miguel Constantino Measurements Intervals [place] Rate: 83 P: NE: QRS: 21 QRSD: 84 T: 33 QT: 427 QTc: 503 Interpretive Statements Atrial fibrillation Ventricular premature complex Probable anteroseptal infarct, old Prolonged QT interval No previous ECG available for comparison Electronically Signed On 03-08-2021 9:33:27 EDT by Miguel Constantino
--- NOTE | 2021-03-08 09:35 | Consultation ---
History of Present Illness - Reason for Consult Consult date: 03/08/21 acute renal failure - History of Present Illness Mr. Patricia is a 55-year-old w/ hypertension, cardiomyopathy, atrial fibrillation, pacemaker placement who reports 1 week history of shortness of breath and intermittent left-sided chest pain. Breathing was worse with exertion. He presented following concern for ICD discharge. There is no history of cough, fever, chills, nausea, vomiting, diarrhea, heavy lifting or fall, neck pain, headache, abdominal pain, numbness and tingling or weakness of upper and lower extremities bilaterally. Per records, recent device interrogation revealed his ICD generator near end of life outpatient generator replacement has been planned. reports patient is followed by a reefer engineer as an outpatient but cannot recall name. Past History Past Medical History: atrial fib, heart failure, stroke, other (Obesity) Past Surgical History: Other (ICD) Social history: Medications and Allergies Allergies Allergy/AdvReac Type Severity Reaction Status Date / Time No Known Allergies Allergy Verified 05/10/20 18:36 Home Medications Medication Instructions Recorded Confirmed Last Taken Type Amiodarone [Cordarone 200 MG TAB] 200 mg PO QDAY #30 tablet 07/21/19 03/07/21 08/09/19 Rx Dabigatran [Pradaxa] 150 mg PO BID #60 capsule 07/21/19 03/07/21 08/09/19 Rx dilTIAZem CD [Cardizem CD] 240 mg PO QDAY #30 capsule 07/21/19 03/07/21 08/09/19 Rx Albuterol Sulfate [Proventil Hfa] 6.7 gm IH Q4H PRN #1 hfa.aer.ad 12/24/19 03/07/21 Unknown Rx Furosemide [Lasix TAB] 40 mg PO Q12HR 10/25/20 03/07/21 Unknown History Losartan [Cozaar] 50 mg PO QDAY 10/25/20 03/07/21 Unknown History Metoprolol [Lopressor TAB] 100 mg PO BID 10/25/20 03/07/21 Unknown History Oxybutynin [Ditropan] 5 mg PO DAILY 10/25/20 03/07/21 Unknown History Rosuvastatin (Nf) [Crestor] 10 mg PO DAILY 10/25/20 03/07/21 Unknown History dilTIAZem CD [Cardizem Cd] 240 mg PO QDAY 10/25/20 03/07/21 Unknown History Active Meds: Active Medications Atorvastatin Calcium (Atorvastatin 20 Mg Tab) 20 mg PO QHS [facility] Last Admin: 03/07/21 21:56 Dose: 20 mg Documented by: Diltiazem HCl (Diltiazem Cd 240 Mg Cap) 240 mg PO QDAY [facility] Last Admin: 03/07/21 13:50 Dose: 240 mg Documented by: Doxazosin Mesylate (Doxazosin 1 Mg Tab) 2 mg PO BID [facility] Last Admin: 03/07/21 21:57 Dose: 2 mg Documented by: Enoxaparin Sodium (Enoxaparin 80 Mg/0.8 Ml Inj) 80 mg SUB-Q BID [facility]; Protocol Furosemide (Furosemide 40 Mg/4 Ml Inj) 40 mg IV BID@0600,1800 [facility] Last Admin: 03/08/21 06:49 Dose: 40 mg Documented by: Hydralazine HCl (Hydralazine 20 Mg/1 Ml Inj) 10 mg IV Q6H PRN PRN Reason: htn Metoprolol Tartrate (Metoprolol Tartrate 100 Mg Tab) 100 mg PO BID@0800,1700 [facility] Last Admin: 03/07/21 18:04 Dose: 100 mg Documented by: Nitroglycerin (Nitroglycerin 0.4 Mg Tab Subl) 0.4 mg SL .Q5MIN PRN PRN Reason: Chest Pain Oxybutynin Chloride (Oxybutynin 5 Mg Tab) 5 mg PO DAILY [facility] Last Admin: 03/07/21 18:07 Dose: 5 mg Documented by: Pantoprazole Sodium (Pantoprazole 40 Mg Tab) 40 mg PO QDAC [facility] Last Admin: 03/07/21 13:50 Dose: 40 mg Documented by: Potassium Chloride (Potassium Chloride Er 20 Meq Tab) 40 meq PO ONCE NR Stop: 03/08/21 10:00 Spironolactone (Spironolactone 25 Mg Tab) 25 mg PO QDAY [facility] Last Admin: 03/07/21 18:06 Dose: 25 mg Documented by: Valsartan (Valsartan 160mg Tab) 160 mg PO BID [facility] Last Admin: 03/07/21 21:56 Dose: 160 mg Documented by: Warfarin Sodium (Warfarin 7.5 Mg Tab) 7.5 mg PO DAILY@1700 [facility]; Protocol Last Admin: 03/07/21 21:56 Dose: 7.5 mg Documented by: Review of Systems All systems: negative Exam - Vital Signs Vital signs: Vital Signs Temp Pulse Resp BP Pulse Ox 98.6 F 100 H 18 203/138 98 03/06/21 20:57 03/06/21 20:57 03/06/21 20:57 03/06/21 20:57 03/06/21 20:57 - General Appearance General appearance: well-developed, well-nourished EENT: ATNC Respiratory: Clear to Ascultation Heart: irregular Gastrointestinal: Present: normal. Absent: tenderness, distended Integumentary: no rash, warm and dry Neurologic: other ( expressive aphasia) Musculoskeletal: Present: other (no edema) Results - Lab Results 03/06/21 21:16 03/08/21 04:45 Most recent lab results Calcium 8.6 mg/dL (8.4-10.2) 03/08/21 04:45 Magnesium 1.80 mg/dL (1.7-2.3) 03/06/21 21:36 Assessment and Plan Impression: * Acute kidney injury on chronic kidney disease --Baseline SCr 1.3-1.5mg/dL since 2019 * Cardiomyopathy * r/o ICD discharge * Atrial fibrillation * Pulmonary edema * CVA w/ Expressive aphasia Plan: * Renal function near baseline. Continue current management * Will obtain UA, UPCR and renal ultrasound * Diuresis per cardiology * Dose medications for renal function * Avoid potential nephrotoxins * AM labs ordered
[2021-03-08] MEDS: OXYBUTYNIN 5 MG TAB PO SCH (09:56)
[2021-03-08] MEDS: VALSARTAN 160MG TAB PO SCH ×2 (09:56→21:23)
[2021-03-08] MEDS: DOXAZOSIN 1 MG TAB PO SCH ×2 (09:58→21:21)
[2021-03-08] MEDS: dilTIAZem CD 240 MG CAP PO SCH (09:59)
[2021-03-08] MEDS: METOPROLOL TARTRATE 100 MG TAB PO SCH ×2 (09:59→18:04)
[2021-03-08] MEDS: SPIRONOLACTONE 25 MG TAB PO SCH (10:00)
[2021-03-08] MEDS: PANTOPRAZOLE 40 MG TAB PO SCH (10:00)
[2021-03-08] MEDS: ENOXAPARIN 80 MG/0.8 ML INJ SUB-Q SCH ×2 (10:00→21:20)
--- NOTE | 2021-03-08 10:45 | Ultrasound Report ---
US renal BILAT INDICATION / CLINICAL INFORMATION: ADAL. COMPARISON: None available. FINDINGS: RIGHT KIDNEY: Size = 10.5 cm. - Echogenicity: Increased echogenicity and decreased visualization of the renal pyramids. - Cortical thickness: Normal. - Hydronephrosis: None. - Cyst or mass: None. - Stones: None seen.. LEFT KIDNEY: Size = 11.6 cm. - Echogenicity: Increased echogenicity and decreased visualization of the renal pyramids. - Cortical thickness: Normal. Mildly lobulated left renal contour. - Hydronephrosis: None. - Cyst or mass: None. - Stones: None seen.. URINARY BLADDER: No significant abnormality. FREE FLUID: None. ADDITIONAL FINDINGS: None. IMPRESSION 1. Findings of medical renal disease without other significant sonographic abnormality. Signer Name: Sreedhar Magaña MD Signed: 03/08/2021 10:41 AM Workstation Name: [id number]
--- NOTE | 2021-03-08 10:59 | Progress Note ---
Assessment and Plan Assessment and plan: #Acute on chronic systolic heart failure Diuretics Monitor renal function closely Cardiology evaluation #Chest pain ruled out #ICD discharge ICD interrogation Cardiology recommendations appreciated #Hypertensive urgency Started on hydralazine PO Continue ARBs #ADAL on CKD Likely vasomotor nephropathy Avoid nephrotoxic medications Nephrology on board #Atrial fibrillation Continue metoprolol Pradaxa switched to coumdain due to spontaneuous echo contrast in [place]. Monitor INR Cardiology following. #Continue rest of home medications #DVT ppx - on pradaxa History Interval history: 03/07. Patient seen and examined at bedside this morning. On IV diuretics for congestive heart failure. Consulted nephrology for ADAL. 03/08. Blood stasis in the LA and LV was seen during echo. Pradaxa has been switched to coumadin by cardiology. He feels great today. INR monitoring. Hospitalist Physical - Physical exam Narrative exam: VITAL SIGNS: Reviewed. GENERAL: Awake HEAD: No signs of head trauma. EYES: Pupils are equal. Extraocular motions intact. MOUTH: Oropharynx is normal. NECK: No adenopathy, no JVD. CHEST: Chest with diminished breath sounds bilaterally. No wheezes, rales, or rhonchi. CARDIAC: normal S1 and S2, without murmurs, gallops, or rubs. ABDOMEN: Soft, non tender and non distended. No rebound or guarding, and no masses palpated. Bowel Sounds normal. MUSCULOSKELETAL: No edema NEUROLOGIC EXAM: Alert and oriented x3. No focal neurologic deficits SKIN: No obvious lesions - Constitutional Vitals: Temp Pulse Resp BP Pulse Ox 97.9 F 103 H 18 157/109 96 03/08/21 08:03 03/08/21 10:00 03/08/21 08:03 03/08/21 08:01 03/08/21 08:50 HEART Score - HEART Score EKG: Non-specific Age: 45-65 Risk factors: > 3 risk factors or hx of atherosclerotic disease Troponin: Troponin T < 0.010 ng/mL (0.00-0.029) 03/07/21 00:47 Troponin: < normal limit - Critical Actions Critical Actions: 4-6 pts:12-16.6% risk of adverse cardiac event. Should be admitted Results - Labs CBC & Chem 7: 03/06/21 21:16 03/08/21 04:45 Labs: Laboratory Last Values WBC 6.7 K/mm3 (4.5-11.0) 03/06/21 21:16 RBC 5.67 M/mm3 (3.65-5.03) H 03/06/21 21:16 Hgb 16.3 gm/dl (11.8-15.2) H 03/06/21 21:16 Hct 48.3 % (35.5-45.6) H 03/06/21 21:16 MCV 85 fl (84-94) 03/06/21 21:16 MCH 29 pg (28-32) 03/06/21 21:16 MCHC 34 % (32-34) 03/06/21 21:16 RDW 14.1 % (13.2-15.2) 03/06/21 21:16 Plt Count 249 K/mm3 (140-440) 03/06/21 21:16 Lymph % (Auto) 32.4 % (13.4-35.0) 03/06/21 21:16 [place] % (Auto) 10.4 % (0.0-7.3) H 03/06/21 21:16 Eos % (Auto) 3.7 % (0.0-4.3) 03/06/21 21:16 Baso % (Auto) 2.1 % (0.0-1.8) H 03/06/21 21:16 Lymph # (Auto) 2.2 K/mm3 (1.2-5.4) 03/06/21 21:16 [place] # (Auto) 0.7 K/mm3 (0.0-0.8) 03/06/21 21:16 Eos # (Auto) 0.2 K/mm3 (0.0-0.4) 03/06/21 21:16 Baso # (Auto) 0.1 K/mm3 (0.0-0.1) 03/06/21 21:16 Seg Neutrophils % 51.4 % (40.0-70.0) 03/06/21 21:16 Seg Neutrophils # 3.4 K/mm3 (1.8-7.7) 03/06/21 21:16 PT 17.8 Sec. (12.2-14.9) H 03/08/21 04:45 INR 1.47 (0.87-1.13) H 03/08/21 04:45 APTT 51.7 Sec. (24.2-36.6) H 03/06/21 21:16 Sodium 140 mmol/L (137-145) 03/08/21 04:45 Potassium 3.4 mmol/L (3.6-5.0) L 03/08/21 04:45 Chloride 102.2 mmol/L (98-107) 03/08/21 04:45 Carbon Dioxide 23 mmol/L (22-30) 03/08/21 04:45 Anion Gap 18 mmol/L 03/08/21 04:45 BUN 27 mg/dL (9-20) H 03/08/21 04:45 Creatinine 1.6 mg/dL (0.8-1.3) H 03/08/21 04:45 Estimated GFR 55 ml/min 03/08/21 04:45 BUN/Creatinine Ratio 17 % 03/08/21 04:45 Glucose 117 mg/dL (75-100) H 03/08/21 04:45 Calcium 8.6 mg/dL (8.4-10.2) 03/08/21 04:45 Magnesium 1.80 mg/dL (1.7-2.3) 03/06/21 21:36 Total Bilirubin 1.10 mg/dL (0.1-1.2) 03/06/21 21:16 AST 20 units/L (5-40) 03/06/21 21:16 ALT 21 units/L (7-56) 03/06/21 21:16 Alkaline Phosphatase 75 units/L (35-129) 03/06/21 21:16 Total Creatine Kinase 283 units/L (55-170) H 03/06/21 21:36 Troponin T < 0.010 ng/mL (0.00-0.029) 03/07/21 00:47 NT-Pro-B Natriuret Pep 5504 pg/mL (0-900) H 03/06/21 21:16 Total Protein 7.3 g/dL (6.3-8.2) 03/06/21 21:16 Albumin 4.3 g/dL (3.9-5) 03/06/21 21:16 Albumin/Globulin Ratio 1.4 % 03/06/21 21:16 Rocha/IV: Voiding Method Toilet Active Medications - Current Medications Current Medications: Generic Name Dose Route Start Last Admin Trade Name Freq PRN Reason Stop Dose Admin Atorvastatin Calcium 20 mg 03/07/21 22:00 03/07/21 21:56 Atorvastatin 20 Mg Tab PO 20 mg QHS [facility] Administration Diltiazem HCl 240 mg 03/07/21 10:00 03/08/21 09:59 Diltiazem Cd 240 Mg Cap PO 240 mg QDAY [facility] Administration Doxazosin Mesylate 2 mg 03/07/21 10:00 03/08/21 09:58 Doxazosin 1 Mg Tab PO 2 mg BID [facility] Administration Enoxaparin Sodium 80 mg 03/08/21 10:00 03/08/21 10:00 Enoxaparin 80 Mg/0.8 Ml Inj SUB-Q 80 mg BID [facility] Administration Protocol Furosemide 40 mg 03/07/21 06:00 03/08/21 06:49 Furosemide 40 Mg/4 Ml Inj IV 40 mg BID@0600,1800 [facility] Administration Hydralazine HCl 10 mg 03/07/21 05:13 Hydralazine 20 Mg/1 Ml Inj IV Q6H PRN htn Metoprolol Tartrate 100 mg 03/07/21 08:00 03/08/21 09:59 Metoprolol Tartrate 100 Mg Tab PO 100 mg BID@0800,1700 [facility] Administration Nitroglycerin 0.4 mg 03/07/21 04:03 Nitroglycerin 0.4 Mg Tab Subl SL .Q5MIN PRN Chest Pain Oxybutynin Chloride 5 mg 03/07/21 10:00 03/08/21 09:56 Oxybutynin 5 Mg Tab PO 5 mg DAILY [facility] Administration Pantoprazole Sodium 40 mg 03/07/21 07:30 03/08/21 10:00 Pantoprazole 40 Mg Tab PO 40 mg QDAC [facility] Administration Spironolactone 25 mg 03/07/21 10:00 03/08/21 10:00 Spironolactone 25 Mg Tab PO 25 mg QDAY [facility] Administration Valsartan 160 mg 03/07/21 10:00 03/08/21 09:56 Valsartan 160mg Tab PO 160 mg BID [facility] Administration Warfarin Sodium 7.5 mg 03/07/21 20:00 03/07/21 21:56 Warfarin 7.5 Mg Tab PO 7.5 mg DAILY@1700 [facility] Administration Protocol
[2021-03-08] MEDS: WARFARIN 7.5 MG TAB PO SCH (18:04)
--- NOTE | 2021-03-08 18:10 | Progress Note ---
Assessment and Plan - Patient Problems (1) Defibrillator discharge Current Visit: Yes Status: Acute Plan to address problem: Patient's defibrillator discharge will undergo ICD interrogation. (2) Atrial fibrillation Current Visit: Yes Status: Chronic Qualifiers: Plan to address problem: Rate control strategy of atrial fibrillation, with anticoagulation now switched to warfarin, target INR of 2.0-3.0. (3) Chronic systolic (congestive) heart failure Current Visit: Yes Status: Acute Plan to address problem: Guideline directed medical therapy as outlined. Subjective Date of service: 03/08/21 Interval history: Patient is comfortable, no acute distress. As noted above, due to high stroke risk findings on echocardiogram, his Pradaxa has been discontinued and he will be treated with warfarin target INR of 2.0-3.0. Objective Vital Signs Temp Pulse Resp BP Pulse Ox 03/08/21 18:04 109 H 03/08/21 15:29 71 20 114/91 93 03/08/21 14:00 100 H 03/08/21 11:18 98.6 F 82 18 153/85 98 03/08/21 10:00 103 H 03/08/21 09:59 103 H 03/08/21 09:58 100 H 03/08/21 09:56 103 H 03/08/21 08:50 96 03/08/21 08:03 97.9 F 18 03/08/21 08:01 97.9 F 64 18 157/109 96 03/08/21 04:59 98.5 F 63 18 144/85 95 03/08/21 00:03 97.6 F 59 L 24 143/80 88 03/07/21 21:57 91 H 141/101 03/07/21 21:56 91 H 141/101 03/07/21 19:09 97.9 F 77 34 H 141/101 95 - Physical Examination General: No Apparent Distress HEENT: Positive: PERRL Neck: Positive: trachea midline Cardiac: Positive: irregularly irregular Lungs: Positive: Decreased Breath Sounds Neuro: Positive: Weakness (Right-sided hemiparesis from prior stroke) Abdomen: Positive: Soft Skin: Positive: Clear Extremities: Absent: edema - Labs and Meds Coagulation 03/08/21 Range/Units 04:45 PT 17.8 H (12.2-14.9) Sec. INR 1.47 H (0.87-1.13) Comprehensive Metabolic Panel 03/08/21 Range/Units 04:45 Sodium 140 (137-145) mmol/L Potassium 3.4 L (3.6-5.0) mmol/L Chloride 102.2 (98-107) mmol/L Carbon Dioxide 23 (22-30) mmol/L BUN 27 H (9-20) mg/dL Creatinine 1.6 H (0.8-1.3) mg/dL Glucose 117 H (75-100) mg/dL Calcium 8.6 (8.4-10.2) mg/dL
[2021-03-08 18:31] LABS: Bacteria,Urine 1+ /HPF (Negative); Bilirubin,Urine NEG (Negative); Blood,Urine SM (Negative); Color,Urine Yellow (Yellow)
[2021-03-08 18:33] LABS: Protein,Urine >500 mg/dL (Negative)
[2021-03-08 18:38] LABS: Creatinine,Urine 101.5 mg/dL (0.1-20.0)
[2021-03-08 18:50] LABS: Protein/Creatinine Ratio,Urine 2.63
[2021-03-09] MEDS: FUROSEMIDE 40 MG/4 ML INJ IV SCH (06:06)
[2021-03-09 06:40] LABS: INR 1.84 (0.87-1.13)
[2021-03-09 07:59] LABS: Calcium 8.7 mg/dL (8.4-10.2)
[2021-03-09] MEDS ORDERED: POTASSIUM CHLORIDE ER 20 MEQ TAB PO SCH (09:00)
--- NOTE | 2021-03-09 09:23 | Progress Note ---
Assessment and Plan Acute systolic heart failure s/t dietary indiscretions Permanent Afib, rate controlled an echo this admission shows a severely dilated left atrium, with extensive echocardiographic smoke, highly suggestive of an elevated thrombosis risk. This finding is despite chronic therapy with Pradaxa. Nonischemic cardiomyopathy Presence of AICD ([employer]) Device interrogation reports normal device function. No appropriate or inappropriate device shocks. Hypertension controlled with valsartan and cardura Prior CVA with aphasia Recommendations: Low sodium diet and fluid restriction. Continue medical therapy for systolic heart failure and chronic atrial fibrillation. Continue subcutaneous Lovenox as a bridge with warfarin, target INR of 2.0-3.0. Subjective Date of service: 03/09/21 Interval history: Device interrogation reports normal device function. No appropriate or inappropriate device shocks. Pradaxa has been discontinued due to abnormal echocardiogram findings. He is on subcutaneous Lovenox as a bridge with warfarin until therapeutic INR levels are reached. INR today is 1.84. Objective Vital Signs Temp Pulse Resp BP BP Pulse Ox 03/09/21 08:58 96 03/09/21 04:43 52 L 03/09/21 04:25 98.6 F 52 L 18 137/80 91 03/08/21 23:59 97.8 F 77 18 133/86 97 03/08/21 22:00 96 H 03/08/21 21:23 78 138/78 03/08/21 21:21 78 138/78 03/08/21 21:09 98 F 78 138/78 03/08/21 19:28 97.6 F 100 H 18 135/102 95 03/08/21 18:04 109 H 03/08/21 15:29 71 20 114/91 93 03/08/21 14:00 100 H 03/08/21 11:18 98.6 F 82 18 153/85 98 03/08/21 10:00 103 H 03/08/21 09:59 103 H 03/08/21 09:58 100 H 03/08/21 09:56 103 H - Physical Examination General: No Apparent Distress HEENT: Positive: PERRL Neck: Positive: trachea midline Cardiac: Positive: irregularly irregular Lungs: Positive: Decreased Breath Sounds Neuro: Positive: Weakness (Right-sided hemiparesis from prior stroke) Extremities: Absent: edema - Labs and Meds Coagulation 03/09/21 Range/Units 04:40 PT 21.2 H (12.2-14.9) Sec. INR 1.84 H (0.87-1.13) Comprehensive Metabolic Panel 03/09/21 Range/Units 04:40 Sodium 137 (137-145) mmol/L Potassium 3.4 L (3.6-5.0) mmol/L Chloride 100.1 (98-107) mmol/L Carbon Dioxide 24 (22-30) mmol/L BUN 29 H (9-20) mg/dL Creatinine 2.0 H (0.8-1.3) mg/dL Glucose 97 (75-100) mg/dL Calcium 8.7 (8.4-10.2) mg/dL
[2021-03-09] MEDS: ENOXAPARIN 80 MG/0.8 ML INJ SUB-Q SCH ×2 (09:34→21:36)
[2021-03-09] MEDS: DOXAZOSIN 1 MG TAB PO SCH ×2 (09:35→21:37)
[2021-03-09] MEDS: OXYBUTYNIN 5 MG TAB PO SCH (09:35)
[2021-03-09] MEDS: dilTIAZem CD 240 MG CAP PO SCH (09:35)
[2021-03-09] MEDS: VALSARTAN 160MG TAB PO SCH ×2 (09:35→21:37)
[2021-03-09] MEDS: SPIRONOLACTONE 25 MG TAB PO SCH (09:36)
[2021-03-09] MEDS: METOPROLOL TARTRATE 100 MG TAB PO SCH ×2 (09:36→17:37)
[2021-03-09] MEDS: PANTOPRAZOLE 40 MG TAB PO SCH (09:36)
--- NOTE | 2021-03-09 11:26 | Consultation ---
History of Present Illness - Reason for Consult Consult date: 03/09/21 acute renal failure, chronic renal failure - History of Present Illness The patient is 55 YO AAM known to our service with history significant for Hypertension, CHF s/p pacemaker placement, Permanent Afib, Nonischemic cardio myopathy, CVA with redual R hemiplegia & aphasia, CKD stage 3 and diet non- compliance who presented to [facility] ED 03/08 with complaint of acute onset persistent shortness of breath and intermittent left-sided chest pain for the last 1 week, worse in the last 2 days. Patient is aphasic and information was obtained from his at the bedside and prior notes. Per family patient has been complaining of worsening shortness of breath with exertion. Patient denies dizziness, cough, fever, chills, nausea, vomiting, diarrhea, headache, abdominal pain or new weakness. CXR showed Cardiomegaly and pulmonary edema. Pt admitted for further evaluation. Labs significant for Creatinine 2. Nephrology was consulted for further evaluation of ADAL. Past History Past Medical History: atrial fib, heart failure, stroke, other (Obesity) Past Surgical History: Other (ICD) Social history: Medications and Allergies Allergies Allergy/AdvReac Type Severity Reaction Status Date / Time No Known Allergies Allergy Verified 05/10/20 18:36 Home Medications Medication Instructions Recorded Confirmed Last Taken Type dilTIAZem CD [Cardizem CD] 240 mg PO QDAY #30 capsule 07/21/19 03/07/21 08/09/19 Rx Albuterol Sulfate [Proventil Hfa] 6.7 gm IH Q4H PRN #1 hfa.aer.ad 12/24/19 03/07/21 Unknown Rx Furosemide [Lasix TAB] 40 mg PO Q12HR 10/25/20 03/07/21 Unknown History Metoprolol [Lopressor TAB] 100 mg PO BID 10/25/20 03/07/21 Unknown History Oxybutynin [Ditropan] 5 mg PO DAILY 10/25/20 03/07/21 Unknown History Rosuvastatin (Nf) [Crestor] 10 mg PO DAILY 10/25/20 03/07/21 Unknown History dilTIAZem CD [Cardizem CD] 240 mg PO QDAY 10/25/20 03/07/21 Unknown History Spironolactone [Aldactone] 25 mg PO QDAY #30 tablet 03/10/21 Unknown Rx Valsartan [Diovan] 160 mg PO BID #60 tablet 03/10/21 Unknown Rx Warfarin [Coumadin] 5 mg PO QDAY #30 tablet 03/10/21 Unknown Rx Active Meds: Active Medications Atorvastatin Calcium (Atorvastatin 20 Mg Tab) 20 mg PO QHS [facility] Last Admin: 03/08/21 21:21 Dose: 20 mg Documented by: Diltiazem HCl (Diltiazem Cd 240 Mg Cap) 240 mg PO QDAY [facility] Last Admin: 03/09/21 09:35 Dose: 240 mg Documented by: Doxazosin Mesylate (Doxazosin 1 Mg Tab) 2 mg PO BID [facility] Last Admin: 03/09/21 09:35 Dose: 2 mg Documented by: Enoxaparin Sodium (Enoxaparin 80 Mg/0.8 Ml Inj) 80 mg SUB-Q BID [facility]; Protocol Last Admin: 03/09/21 09:34 Dose: 80 mg Documented by: Furosemide (Furosemide 40 Mg Tab) 40 mg PO 0600,1800 [facility] Hydralazine HCl (Hydralazine 20 Mg/1 Ml Inj) 10 mg IV Q6H PRN PRN Reason: htn Metoprolol Tartrate (Metoprolol Tartrate 100 Mg Tab) 100 mg PO BID@0800,1700 [facility] Last Admin: 03/09/21 09:36 Dose: 100 mg Documented by: Nitroglycerin (Nitroglycerin 0.4 Mg Tab Subl) 0.4 mg SL .Q5MIN PRN PRN Reason: Chest Pain Oxybutynin Chloride (Oxybutynin 5 Mg Tab) 5 mg PO DAILY [facility] Last Admin: 03/09/21 09:35 Dose: 5 mg Documented by: Pantoprazole Sodium (Pantoprazole 40 Mg Tab) 40 mg PO QDAC [facility] Last Admin: 03/09/21 09:36 Dose: 40 mg Documented by: Potassium Chloride (Potassium Chloride Er 20 Meq Tab) 40 meq PO ONCE [facility] Stop: 03/09/21 12:00 Last Admin: 03/09/21 09:36 Dose: 40 meq Documented by: Spironolactone (Spironolactone 25 Mg Tab) 25 mg PO QDAY [facility] Last Admin: 03/09/21 09:36 Dose: 25 mg Documented by: Valsartan (Valsartan 160mg Tab) 160 mg PO BID [facility] Last Admin: 03/09/21 09:35 Dose: 160 mg Documented by: Warfarin Sodium (Warfarin 7.5 Mg Tab) 7.5 mg PO DAILY@1700 [facility]; Protocol Last Admin: 03/08/21 18:04 Dose: 7.5 mg Documented by: Review of Systems Constitutional: no weight loss, no weight gain, no fever, no chills, no anorexia, no weakness Cardiovascular: chest pain, orthopnea, edema, shortness of breath, dyspnea on exertion, high blood pressure, leg edema, no syncope, no lightheadedness Respiratory: shortness of breath, dyspnea on exertion, no cough, no hemoptysis Gastrointestinal: no abdominal pain, no nausea, no vomiting, no diarrhea, no melena Genitourinary Male: no dysuria, no hematuria Integumentary: no rash Exam - Vital Signs Vital signs: Vital Signs Temp Pulse Resp BP Pulse Ox 98.6 F 100 H 18 203/138 98 03/06/21 20:57 03/06/21 20:57 03/06/21 20:57 03/06/21 20:57 03/06/21 20:57 Results - Lab Results 03/06/21 21:16 03/10/21 05:06 Most recent lab results Calcium 8.7 mg/dL (8.4-10.2) 03/09/21 04:40 Magnesium 1.80 mg/dL (1.7-2.3) 03/06/21 21:36 Urine Creatinine 101.5 mg/dL (0.1-20.0) H 03/08/21 16:30 Urine Total Protein 267 mg/dL (5-11.8) H 03/08/21 16:30 Assessment and Plan 1. Acute kidney injury: ADAL superimposed on CKD satge 3 in the setting of dcompensated CHF. Renal US negative for hydro. Monitor renal function. Creatinine level is fluctuates. Avoid nephrotoxic agents. Meds dosage based on GFR. 2. FEN: Hypokalemia, replete K, monitor. Monitor lytes and volume status. 3. Acute systolic CHF: Strict I/Os. Fluid & Sodium restriction. On Metoprolol. Followed by Cards. 4. ICD discharge: ICD interrogation. Followed by Cardiology. 5. Hypertensive urgency: Adjust meds as needed. BP is better. 6. Permanent Atrial fibrillation: Metoprolol Pradaxa switched to coumdain due to spontaneuous Echo contrast in [place]. Monitor INR. 7. CVA with residual hemiplegia and aphasia. Subjective: Patient was seen and examined at the bedside. Objective: General appearance: well-developed, appears stated age, no distress HEENT: ATNC, pupils equal Neck: trachea midline Respiratory: ctab Heart: irregular, S1S2, no murmur Gastrointestinal: soft, normoactive bowel sounds, not tender Integumentary: no rash, warm and dry Ext: no edema Neurologic: alert, expressive aphasia, R hemiplegia
--- NOTE | 2021-03-09 11:56 | Progress Note ---
Assessment and Plan Assessment and plan: #Acute on chronic systolic heart failure Diuretics Monitor renal function closely Cardiology evaluation #Chest pain ruled out #ICD discharge ICD interrogation Cardiology recommendations appreciated #Hypertensive urgency Started on hydralazine PO Continue ARBs #ADAL on CKD Likely vasomotor nephropathy Avoid nephrotoxic medications Nephrology on board #Atrial fibrillation Continue metoprolol Pradaxa switched to coumdain due to spontaneuous echo contrast in [place]. Monitor INR - INR 1.84 today Cardiology following. #Continue rest of home medications #DVT ppx - on pradaxa History Interval history: 03/07. Patient seen and examined at bedside this morning. On IV diuretics for congestive heart failure. Consulted nephrology for ADAL. 03/08. Blood stasis in the LA and LV was seen during echo. Pradaxa has been switched to coumadin by cardiology. He feels great today. INR monitoring. 03/09. INR -1.84. On coumadin 7.5 mg daily. Possible DC tomorrow. Hospitalist Physical - Physical exam Narrative exam: VITAL SIGNS: Reviewed. GENERAL: Awake HEAD: No signs of head trauma. EYES: Pupils are equal. Extraocular motions intact. MOUTH: Oropharynx is normal. NECK: No adenopathy, no JVD. CHEST: Chest with diminished breath sounds bilaterally. No wheezes, rales, or rhonchi. CARDIAC: normal S1 and S2, without murmurs, gallops, or rubs. ABDOMEN: Soft, non tender and non distended. No rebound or guarding, and no masses palpated. Bowel Sounds normal. MUSCULOSKELETAL: No edema NEUROLOGIC EXAM: Alert and oriented x3. No focal neurologic deficits SKIN: No obvious lesions - Constitutional Vitals: Temp Pulse Resp BP Pulse Ox 97.6 F 82 18 135/84 96 03/09/21 08:13 03/09/21 09:36 03/09/21 08:13 03/09/21 09:36 03/09/21 08:58 HEART Score - HEART Score EKG: Non-specific Age: 45-65 Risk factors: > 3 risk factors or hx of atherosclerotic disease Troponin: Troponin T < 0.010 ng/mL (0.00-0.029) 03/07/21 00:47 Troponin: < normal limit - Critical Actions Critical Actions: 4-6 pts:12-16.6% risk of adverse cardiac event. Should be admitted Results - Labs CBC & Chem 7: 03/06/21 21:16 03/09/21 04:40 Labs: Laboratory Last Values WBC 6.7 K/mm3 (4.5-11.0) 03/06/21 21:16 RBC 5.67 M/mm3 (3.65-5.03) H 03/06/21 21:16 Hgb 16.3 gm/dl (11.8-15.2) H 03/06/21 21:16 Hct 48.3 % (35.5-45.6) H 03/06/21 21:16 MCV 85 fl (84-94) 03/06/21 21:16 MCH 29 pg (28-32) 03/06/21 21:16 MCHC 34 % (32-34) 03/06/21 21:16 RDW 14.1 % (13.2-15.2) 03/06/21 21:16 Plt Count 249 K/mm3 (140-440) 03/06/21 21:16 Lymph % (Auto) 32.4 % (13.4-35.0) 03/06/21 21:16 [place] % (Auto) 10.4 % (0.0-7.3) H 03/06/21 21:16 Eos % (Auto) 3.7 % (0.0-4.3) 03/06/21 21:16 Baso % (Auto) 2.1 % (0.0-1.8) H 03/06/21 21:16 Lymph # (Auto) 2.2 K/mm3 (1.2-5.4) 03/06/21 21:16 [place] # (Auto) 0.7 K/mm3 (0.0-0.8) 03/06/21 21:16 Eos # (Auto) 0.2 K/mm3 (0.0-0.4) 03/06/21 21:16 Baso # (Auto) 0.1 K/mm3 (0.0-0.1) 03/06/21 21:16 Seg Neutrophils % 51.4 % (40.0-70.0) 03/06/21 21:16 Seg Neutrophils # 3.4 K/mm3 (1.8-7.7) 03/06/21 21:16 PT 21.2 Sec. (12.2-14.9) H 03/09/21 04:40 INR 1.84 (0.87-1.13) H 03/09/21 04:40 APTT 51.7 Sec. (24.2-36.6) H 03/06/21 21:16 Sodium 137 mmol/L (137-145) 03/09/21 04:40 Potassium 3.4 mmol/L (3.6-5.0) L 03/09/21 04:40 Chloride 100.1 mmol/L (98-107) 03/09/21 04:40 Carbon Dioxide 24 mmol/L (22-30) 03/09/21 04:40 Anion Gap 16 mmol/L 03/09/21 04:40 BUN 29 mg/dL (9-20) H 03/09/21 04:40 Creatinine 2.0 mg/dL (0.8-1.3) H 03/09/21 04:40 Estimated GFR 42 ml/min 03/09/21 04:40 BUN/Creatinine Ratio 15 % 03/09/21 04:40 Glucose 97 mg/dL (75-100) 03/09/21 04:40 Calcium 8.7 mg/dL (8.4-10.2) 03/09/21 04:40 Magnesium 1.80 mg/dL (1.7-2.3) 03/06/21 21:36 Total Bilirubin 1.10 mg/dL (0.1-1.2) 03/06/21 21:16 AST 20 units/L (5-40) 03/06/21 21:16 ALT 21 units/L (7-56) 03/06/21 21:16 Alkaline Phosphatase 75 units/L (35-129) 03/06/21 21:16 Total Creatine Kinase 283 units/L (55-170) H 03/06/21 21:36 Troponin T < 0.010 ng/mL (0.00-0.029) 03/07/21 00:47 NT-Pro-B Natriuret Pep 5504 pg/mL (0-900) H 03/06/21 21:16 Total Protein 7.3 g/dL (6.3-8.2) 03/06/21 21:16 Albumin 4.3 g/dL (3.9-5) 03/06/21 21:16 Albumin/Globulin Ratio 1.4 % 03/06/21 21:16 Urine Color Yellow (Yellow) 03/08/21 16:30 Urine Turbidity Clear (Clear) 03/08/21 16:30 Urine pH 7.0 (5.0-7.0) 03/08/21 16:30 Ur Specific [place] 1.010 (1.003-1.030) 03/08/21 16:30 Urine Protein >500 mg/dL (Negative) 03/08/21 16:30 Urine Glucose (UA) Neg mg/dL (Negative) 03/08/21 16:30 Urine Ketones Neg mg/dL (Negative) 03/08/21 16:30 Urine Blood Sm (Negative) 03/08/21 16:30 Urine Nitrite Neg (Negative) 03/08/21 16:30 Urine Bilirubin Neg (Negative) 03/08/21 16:30 Urine Urobilinogen 4.0 mg/dL (<2.0) 03/08/21 16:30 Ur Leukocyte Esterase Neg (Negative) 03/08/21 16:30 Urine WBC (Auto) 1.0 /HPF (0.0-6.0) 03/08/21 16:30 Urine RBC (Auto) 2.0 /HPF (0.0-6.0) 03/08/21 16:30 Urine Bacteria (Auto) 1+ /HPF (Negative) 03/08/21 16:30 Urine Creatinine 101.5 mg/dL (0.1-20.0) H 03/08/21 16:30 Protein/Creatinin Ratio 2.63 03/08/21 16:30 Urine Total Protein 267 mg/dL (5-11.8) H 03/08/21 16:30 Rocha/IV: Voiding Method Toilet Active Medications - Current Medications Current Medications: Generic Name Dose Route Start Last Admin Trade Name Freq PRN Reason Stop Dose Admin Atorvastatin Calcium 20 mg 03/07/21 22:00 03/08/21 21:21 Atorvastatin 20 Mg Tab PO 20 mg QHS MARSHA Administration Diltiazem HCl 240 mg 03/07/21 10:00 03/09/21 09:35 Diltiazem Cd 240 Mg Cap PO 240 mg QDAY MARSHA Administration Doxazosin Mesylate 2 mg 03/07/21 10:00 03/09/21 09:35 Doxazosin 1 Mg Tab PO 2 mg BID MARSHA Administration Enoxaparin Sodium 80 mg 03/08/21 10:00 03/09/21 09:34 Enoxaparin 80 Mg/0.8 Ml Inj SUB-Q 80 mg BID MARSHA Administration Protocol Furosemide 40 mg 03/09/21 18:00 Furosemide 40 Mg Tab PO 0600,1800 [facility] Hydralazine HCl 10 mg 03/07/21 05:13 Hydralazine 20 Mg/1 Ml Inj IV Q6H PRN htn Metoprolol Tartrate 100 mg 03/07/21 08:00 03/09/21 09:36 Metoprolol Tartrate 100 Mg Tab PO 100 mg BID@0800,1700 [facility] Administration Nitroglycerin 0.4 mg 03/07/21 04:03 Nitroglycerin 0.4 Mg Tab Subl SL .Q5MIN PRN Chest Pain Oxybutynin Chloride 5 mg 03/07/21 10:00 03/09/21 09:35 Oxybutynin 5 Mg Tab PO 5 mg DAILY MARSHA Administration Pantoprazole Sodium 40 mg 03/07/21 07:30 03/09/21 09:36 Pantoprazole 40 Mg Tab PO 40 mg QDAC MARSHA Administration Potassium Chloride 40 meq 03/09/21 09:00 03/09/21 09:36 Potassium Chloride Er 20 Meq Tab PO 03/09/21 12:00 40 meq ONCE MARSHA Administration Spironolactone 25 mg 03/07/21 10:00 03/09/21 09:36 Spironolactone 25 Mg Tab PO 25 mg QDAY MAR[facility] Administration Valsartan 160 mg 03/07/21 10:00 03/09/21 09:35 Valsartan 160mg Tab PO 160 mg BID MARSHA Administration Warfarin Sodium 7.5 mg 03/07/21 20:00 03/08/21 18:04 Warfarin 7.5 Mg Tab PO 7.5 mg DAILY@1700 [facility] Administration Protocol Nutrition/Malnutrition Assess - Dietary Evaluation Nutrition/Malnutrition Findings: Nutrition Notes Start: 03/08/21 14:58 Freq: Status: Active Protocol: Document 03/08/21 14:58 CW (Rec: 03/08/21 15:04 CW [id number]) Nutrition Notes Need for Assessment generated from: Education Initial or Follow up Brief Note Current Diagnosis Hypertension,Heart Failure, Hyperlipidemia Other Pertinent Diagnosis Cardiorenal syndrome Current Diet Cardiac Height 5 ft 7 in Weight 85.9 kg [place] Body Weight (kg) 67.27 BMI 29.6 Weight Status Overweight Subjective/Other Information Screen for DNI. Pt is nonverbal at bedside. NOK reports that pt has previously been on coumadin and was familar with Vitamin K interaction ad Coumadin and aware of some foods with vitamin K. NOK provided with handout to refresh memory for viramin K rich foods. NOK also inquired about information related to weight loss for herself and . General nutrition and physical activity education provided. #1 Nutrition Diagnosis Food and nutrition-related knowledge deficit Etiology previous DNI education r/t DNI w/ coumadin received As Evidenced by Signs and Symptoms NOK reports need for refresher course on DNI Nutrition Intervention Change Diet Order: Continue Cardiac Diet Teaching Recipient Patient,Primary Caregiver, Spouse Learning Readiness Good Teaching Methods Discussion,Handout Response to Teaching Verbalize understanding Education Handouts Provided Healthy Weight loss goals Tips on healthy eating Vitamin K and medication interaction 1800 kcal meal plan Barriers to Learning No Barriers,Cognitive/Verbal, Cognitive/Written RD phone number provided Yes Patient aware of follow up options Yes Anticipated Discharge Needs: Cardiac diet low in Vitamin K Revisit per MD consult or patient Sign Off request: Additional Comments S/O for diet education well recieved.
[2021-03-09] MEDS: WARFARIN 7.5 MG TAB PO SCH (17:37)
[2021-03-09] MEDS: FUROSEMIDE 40 MG TAB PO SCH (17:37)
[2021-03-10] MEDS: FUROSEMIDE 40 MG TAB PO SCH (05:38)
[2021-03-10 05:50] VITALS: BP 137/95
[2021-03-10 06:14] LABS: INR 2.82 (0.87-1.13)
[2021-03-10 06:24] LABS: Calcium 8.6 mg/dL (8.4-10.2)
[2021-03-10] MEDS: METOPROLOL TARTRATE 100 MG TAB PO SCH (09:48)
[2021-03-10] MEDS: OXYBUTYNIN 5 MG TAB PO SCH (09:48)
[2021-03-10] MEDS: DOXAZOSIN 1 MG TAB PO SCH (09:48)
[2021-03-10] MEDS: PANTOPRAZOLE 40 MG TAB PO SCH (09:49)
[2021-03-10] MEDS: SPIRONOLACTONE 25 MG TAB PO SCH (09:49)
[2021-03-10] MEDS: VALSARTAN 160MG TAB PO SCH (09:49)
[2021-03-10] MEDS: ENOXAPARIN 80 MG/0.8 ML INJ SUB-Q SCH (09:49)
[2021-03-10] MEDS: dilTIAZem CD 240 MG CAP PO SCH (09:49)
--- NOTE | 2021-03-10 10:36 | Progress Note ---
Assessment and Plan Acute on chronic systolic heart failure s/t dietary indiscretions Now improved Permanent Afib, rate controlled an echo this admission shows a severely dilated left atrium, with extensive echocardiographic smoke despite pradaxa Now switched to warfarin and INR is therapeutic Nonischemic cardiomyopathy Presence of AICD ([employer]) Device interrogation reports normal device function and is nearing elective replacement indicator (SHIVANI). No appropriate or inappropriate device shocks. Hypertension controlled Prior CVA with aphasia Recommendations: Low sodium diet and fluid restriction. Continue medical therapy for systolic heart failure and chronic atrial fibrillation. Continue warfarin, target INR of 2.0-3.0. He has upcoming outpatient appointment with me on 04/03/21 - will schedule ICD generator replacement at that time. OK to DC from cardiac perspective Subjective Date of service: 03/10/21 Interval history: No acute events Objective Vital Signs Temp Pulse Resp BP Pulse Ox 03/10/21 08:13 90 03/10/21 05:04 97.7 F 74 18 137/95 96 03/10/21 00:00 76 03/09/21 23:58 98.0 F 76 18 136/92 98 03/09/21 20:26 94 03/09/21 20:07 98.1 F 46 L 18 137/87 97 03/09/21 17:37 80 112/88 03/09/21 17:09 97.6 F 52 L 18 112/88 96 03/09/21 16:49 129 H 113/61 96 - Physical Examination General: No Apparent Distress HEENT: Positive: PERRL Neck: Positive: trachea midline Cardiac: Positive: irregularly irregular Lungs: Positive: clear to auscultation Neuro: Positive: Weakness (Right-sided hemiparesis from prior stroke) Abdomen: Positive: Soft Skin: Positive: Clear Extremities: Absent: edema - Labs and Meds Coagulation 03/10/21 Range/Units 05:06 PT 29.8 H (12.2-14.9) Sec. INR 2.82 H (0.87-1.13) Comprehensive Metabolic Panel 03/10/21 Range/Units 05:06 Sodium 136 L (137-145) mmol/L Potassium 3.5 L (3.6-5.0) mmol/L Chloride 99.9 (98-107) mmol/L Carbon Dioxide 24 (22-30) mmol/L BUN 31 H (9-20) mg/dL Creatinine 2.0 H (0.8-1.3) mg/dL Glucose 103 H (75-100) mg/dL Calcium 8.6 (8.4-10.2) mg/dL
--- NOTE | 2021-03-10 12:05 | Discharge Summary ---
Providers - Providers Date of Admission: 03/07/21 11:26 Date of discharge: 03/10/21 Attending physician: ATTILA HORNE 03/07/21 04:03 Consult to Physician [CONS] Urgent Comment: Dr. Henning spoke with Dr. 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 fib, on rate control strategy, with Pradaxa anticoagulation, obesity, dietary indiscretions, stroke, aphasic secondary to stroke, right upper extremity contracture, obesity [employer] ICD was brought to the emergency room because of patient having chest pain yesterday. Chest pain was 2-3 over 10, chest pain does not radiate to the back arms or neck. He also felt like his defibrillator activated or shocked him at least once. Patient's indicates that the patient is compliant with his medications, including Pradaxa, denies travel. Patient is not verbal. However, he indicates he is not having headache, neck pain, abdominal pain, hematemesis, bright red blood per rectum. No Covid exposure symptomatology. In the emergency room patient is found to have acute CHF exacerbation. Patient also complained of swelling of the legs. proBNP is 5504 and chest x-ray shows stable cardiomegaly with mild pulmonary vascular congestion and features of very mild pulmonary edema Hospital course 03/07. Patient seen and examined at bedside this morning. On IV diuretics for congestive heart failure. Consulted nephrology for ADAL. 03/08. Blood stasis in the LA and LV was seen during echo. Pradaxa has been switched to coumadin by cardiology. He feels great today. INR monitoring. 03/09. INR -1.84. On coumadin 7.5 mg daily. Possible DC tomorrow. 03/10. Patient's INR is 2.8. Due to rapid increase in INR to 2.8, will hold C oumadin until Friday when he gets a repeat INR. Adjustments of Coumadin will be made by primary medical doctor. Discussed with patient's and she agrees to management. He has been cleared from cardiology standpoint for discharge. Disposition: DC-01 TO HOME OR SELFCARE Final Discharge Diagnosis (Prints w/discharge instructions): Acute on chronic systolic heart failure Time spent for discharge: 40 minutes - Discharge Diagnoses (1) Acute on chronic systolic heart failure Status: Acute (2) Systolic CHF Status: Acute Qualifiers: Heart failure chronicity: acute on chronic Qualified Code(s): I50.23 - Acute on chronic systolic (congestive) heart failure (3) CKD (chronic kidney disease) Status: Acute (4) ADAL (acute kidney injury) Status: Acute Comment: 2/2 Vasomotor nephropathy Core Measure Documentation - Palliative Care Palliative Care/ Comfort Measures: Not Applicable - Core Measures Any of the following diagnoses?: none Exam - Physical Exam Narrative exam: VITAL SIGNS: Reviewed. GENERAL: Awake HEAD: No signs of head trauma. EYES: Pupils are equal. Extraocular motions intact. MOUTH: Oropharynx is normal. NECK: No adenopathy, no JVD. CHEST: Chest with diminished breath sounds bilaterally. No wheezes, rales, or rhonchi. CARDIAC: normal S1 and S2, without murmurs, gallops, or rubs. ABDOMEN: Soft, non tender and non distended. No rebound or guarding, and no masses palpated. Bowel Sounds normal. MUSCULOSKELETAL: No edema NEUROLOGIC EXAM: Alert and oriented x3. No focal neurologic deficits SKIN: No obvious lesions - Constitutional Vitals: Temp Pulse Resp BP Pulse Ox 97.7 F 90 18 137/95 96 03/10/21 05:04 03/10/21 08:13 03/10/21 05:04 03/10/21 05:04 03/10/21 05:04 Plan Additional Instructions: You will need to have a repeat PT/INR lab draw on 03/12. Dose of Coumadin will be adjusted by your primary doctor on 03/12. Coumadin has been prescribed but do not use until you see primary medical doctor on 03/12. Stop pradaxa. Follow-up with cardiology in the office in 1 to 2 weeks Follow up with: PRIMARY MD BRYAN [Primary Care Provider] - 3-5 Days Forms: Warfarin Discharge Instruction Prescriptions: Spironolactone [Aldactone] 25 mg PO QDAY #30 tablet Warfarin [Coumadin] 5 mg PO QDAY #30 tablet Valsartan [Diovan] 160 mg PO BID #60 tablet
--- NOTE | 2021-03-10 14:43 | Progress Note ---
Assessment and Plan 1. Acute kidney injury: ADAL superimposed on CKD satge 3 in the setting of dcompensated CHF. Renal US negative for hydro. Monitor renal function. Creatinine level is fluctuates. Avoid nephrotoxic agents. Meds dosage based on GFR. 2. FEN: Hypokalemia, replete K, monitor. Monitor lytes and volume status. 3. Acute systolic CHF: Strict I/Os. Fluid & Sodium restriction. On Metoprolol. Followed by Cards. 4. ICD discharge: ICD interrogation. Followed by Cardiology. 5. Hypertensive urgency: Adjust meds as needed. BP is better. 6. Permanent Atrial fibrillation: Metoprolol Pradaxa switched to coumdain due to spontaneuous Echo contrast in LA. Monitor INR. 7. CVA with residual hemiplegia and aphasia. Has an appt to see me on 03/30/21. Subjective: Patient was not examined today. However the examination findings from other providers noted. The current and previous medical records are reviewed in detail as are laboratory and imaging data reviewed when appropriate. Medications being given are also reviewed. In addition the case has been discussed with the attending hospitalist and the nurse when needed. New renal recommendations as above. Objective: Subjective Date of service: 03/10/21 Objective - Vital Signs Vital signs: Vital Signs - 12hr 03/10/21 03/10/21 05:04 08:13 Temperature 97.7 F Pulse Rate 74 90 Respiratory 18 Rate Blood Pressure 137/95 O2 Sat by Pulse 96 Oximetry - Lab 03/06/21 21:16 03/10/21 05:06 Most recent lab results Calcium 8.6 mg/dL (8.4-10.2) 03/10/21 05:06 Magnesium 1.80 mg/dL (1.7-2.3) 03/06/21 21:36 Urine Creatinine 101.5 mg/dL (0.1-20.0) H 03/08/21 16:30 Urine Total Protein 267 mg/dL (5-11.8) H 03/08/21 16:30 Medications & Allergies - Medications Allergies/Adverse Reactions: Allergies No Known Allergies Allergy (Verified 05/10/20 18:36) Home Medications: Home Medications Medication Instructions Recorded Confirmed Last Taken Type dilTIAZem CD [Cardizem CD] 240 mg PO QDAY #30 capsule 07/21/19 03/07/21 08/09/19 Rx Albuterol Sulfate [Proventil Hfa] 6.7 gm IH Q4H PRN #1 hfa.aer.ad 12/24/19 03/07/21 Unknown Rx Furosemide [Lasix TAB] 40 mg PO Q12HR 10/25/20 03/07/21 Unknown History Metoprolol [Lopressor TAB] 100 mg PO BID 10/25/20 03/07/21 Unknown History Oxybutynin [Ditropan] 5 mg PO DAILY 10/25/20 03/07/21 Unknown History Rosuvastatin (Nf) [Crestor] 10 mg PO DAILY 10/25/20 03/07/21 Unknown History dilTIAZem CD [Cardizem CD] 240 mg PO QDAY 10/25/20 03/07/21 Unknown History Spironolactone [Aldactone] 25 mg PO QDAY #30 tablet 03/10/21 Unknown Rx Valsartan [Diovan] 160 mg PO BID #60 tablet 03/10/21 Unknown Rx Warfarin [Coumadin] 5 mg PO QDAY #30 tablet 03/10/21 Unknown Rx Active Medications: Generic Name Dose Route Start Last Admin Trade Name Freq PRN Reason Stop Dose Admin Atorvastatin Calcium 20 mg 03/07/21 22:00 03/09/21 21:37 Atorvastatin 20 Mg Tab PO 20 mg QHS MARSHA Administration Diltiazem HCl 240 mg 03/07/21 10:00 03/10/21 09:49 Diltiazem Cd 240 Mg Cap PO 240 mg QDAY MARSHA Administration Doxazosin Mesylate 2 mg 03/07/21 10:00 03/10/21 09:48 Doxazosin 1 Mg Tab PO 2 mg BID MARSHA Administration Furosemide 40 mg 03/09/21 18:00 03/10/21 05:38 Furosemide 40 Mg Tab PO 40 mg 0600,1800 MARSHA Administration Hydralazine HCl 10 mg 03/07/21 05:13 Hydralazine 20 Mg/1 Ml Inj IV Q6H PRN htn Metoprolol Tartrate 100 mg 03/07/21 08:00 03/10/21 09:48 Metoprolol Tartrate 100 Mg Tab PO 100 mg BID@0800,1700 MARSHA Administration Nitroglycerin 0.4 mg 03/07/21 04:03 Nitroglycerin 0.4 Mg Tab Subl SL .Q5MIN PRN Chest Pain Oxybutynin Chloride 5 mg 03/07/21 10:00 03/10/21 09:48 Oxybutynin 5 Mg Tab PO 5 mg DAILY MARSHA Administration Pantoprazole Sodium 40 mg 03/07/21 07:30 03/10/21 09:49 Pantoprazole 40 Mg Tab PO 40 mg QDAC MARSHA Administration Spironolactone 25 mg 03/07/21 10:00 03/10/21 09:49 Spironolactone 25 Mg Tab PO 25 mg QDAY MARSHA Administration Valsartan 160 mg 03/07/21 10:00 03/10/21 09:49 Valsartan 160mg Tab PO 160 mg BID MARSHA Administration
== END 2021-03-10 16:52 | disposition home or self-care (01) | DRG 682 ==
LOC: ED 19:19 → 4A 03-07 04:15 → OBSVTOIN 03-07 11:26
PROVIDERS: ADMIT Hospitalist; ATTEND Internal Medicine
DX: N17.0 Acute kidney failure with tubular necrosis (principal); I50.23 Acute on chronic systolic (congestive) heart failure; I13.0 Hypertensive heart and chronic kidney disease with heart failure and stage 1 through stage 4 chronic kidney disease, or unspecified chronic kidney disease; I42.8 Other cardiomyopathies; I48.21 Permanent atrial fibrillation; I69.959 Hemiplegia and hemiparesis following unspecified cerebrovascular disease affecting unspecified side; I16.0 Hypertensive urgency; E66.9 Obesity, unspecified; M19.90 Unspecified osteoarthritis, unspecified site; E87.6 Hypokalemia; N18.30 Chronic kidney disease, stage 3 unspecified; Z91.19 Patient's noncompliance with other medical treatment and regimen; Z79.899 Other long term (current) drug therapy; Z79.891 Long term (current) use of opiate analgesic; Z79.01 Long term (current) use of anticoagulants; I69.920 Aphasia following unspecified cerebrovascular disease; Z95.810 Presence of automatic (implantable) cardiac defibrillator; Z87.891 Personal history of nicotine dependence; Z68.29 Body mass index [BMI] 29.0-29.9, adult
CPT/HCPCS: 36415; 71045; 76770; 80048; 80053; 81001; 82550; 82570; 83735; 83880; 84156; 84484; 85025; 85610; 85730; 93005; 93306; 96374; 96375; G0378; A9270-GY; J0360; J1650; J1940

== ENCOUNTER 2021-06-16 20:51 | Emergency (ER) | payer MEDICARE ==
[2021-06-16] MEDS ORDERED: predniSONE 50 MG TAB PO ONE (21:22)
[2021-06-16] MEDS ORDERED: ONDANSETRON 4 MG ODT TAB PO ONE (21:22)
[2021-06-16] MEDS ORDERED: oxyCODONE /ACETAMINOPHEN 5-325MG TAB PO ONE (21:22)
--- NOTE | 2021-06-16 21:28 | Emergency Department Report ---
ED Extremity Problem HPI - General Chief complaint: Extremity Injury, Lower Stated complaint: SOB Source: family Mode of arrival: Wheelchair Limitations: Physical Limitation - History of Present Illness Initial comments: Patient is a 56-year-old -[place] male with a history of hypertension, hyperlipidemia, CVA s/p right-sided hemiparesis, chronic osteoarthritis, chronic kidney disease, A. fib, and CHF who presents to the ED with complaint of persistent severe left knee joint pain intermittently for the last 6 months, worse in the last 2 days. Patient states that he is unable to bear weight on the left knee despite using a walking cane to aid in ambulation given the fact that he has right-sided hemiparesis. Patient denies fall, traumatic injury, dizziness, syncope, chest pain or shortness of breath, leg pain, back pain, hip pain, heavy lifting, numbness and tingling or weakness of left leg or headache, fever and chills. MD Complaint: extremity pain (Left knee pain), joint paint (left knee joint pain) -: Gradual, month(s) (6) Location: left, lower extremity (left knee), knee (left knee pain) History of Same: Yes (chronic) -: Yes arthralgia (left knee), No fever, No associated dyspnea, No associated chest pain Radiation: none Severity scale (0 -10): 7 Quality: aching, sharp Consistency: constant Improves with: nothing Worsens with: weight bearing, walking, exertion, palpation Associated Symptoms: denies other symptoms, arthralgias (left knee joint pain). denies: chest pain, shortness of breath, fever, myalgias, rash - Related Data Home Medications Medication Instructions Recorded Confirmed Last Taken Furosemide [Lasix TAB] 40 mg PO Q12HR 10/25/20 03/07/21 Unknown Metoprolol [Lopressor TAB] 100 mg PO BID 10/25/20 03/07/21 Unknown Oxybutynin [Ditropan] 5 mg PO DAILY 10/25/20 03/07/21 Unknown Rosuvastatin (Nf) [Crestor] 10 mg PO DAILY 10/25/20 03/07/21 Unknown dilTIAZem CD [Cardizem CD] 240 mg PO QDAY 10/25/20 03/07/21 Unknown Previous Rx's Medication Instructions Recorded Last Taken Type dilTIAZem CD [Cardizem CD] 240 mg PO QDAY #30 capsule 07/21/19 08/09/19 Rx Albuterol Sulfate [Proventil Hfa] 6.7 gm IH Q4H PRN #1 hfa.aer.ad 12/24/19 Unknown Rx Spironolactone [Aldactone] 25 mg PO QDAY #30 tablet 03/10/21 Unknown Rx Valsartan [Diovan] 160 mg PO BID #60 tablet 03/10/21 Unknown Rx Warfarin [Coumadin] 5 mg PO QDAY #30 tablet 03/10/21 Unknown Rx predniSONE [Deltasone] 40 mg PO QDAY #10 tab 06/16/21 Unknown Rx traMADoL [Ultram] 50 mg PO Q6HR PRN #15 tablet 06/16/21 Unknown Rx Allergies Allergy/AdvReac Type Severity Reaction Status Date / Time No Known Allergies Allergy Verified 05/10/20 18:36 ED Review of Systems ROS: Stated complaint: SOB Other details as noted in HPI Constitutional: denies: chills, fever Eyes: denies: eye pain, eye discharge, vision change ENT: denies: ear pain, throat pain Respiratory: denies: cough, shortness of breath, wheezing Cardiovascular: denies: chest pain, palpitations Endocrine: no symptoms reported Gastrointestinal: denies: abdominal pain, nausea, diarrhea Genitourinary: denies: urgency, dysuria Musculoskeletal: arthralgia (Left knee joint pain). denies: back pain, joint swelling Skin: denies: rash, lesions Neurological: denies: headache, weakness, paresthesias Psychiatric: denies: anxiety, depression Hematological/Lymphatic: denies: easy bleeding, easy bruising ED Past Medical Hx - Past Medical History Previous Medical History?: Yes Hx Hypertension: Yes Hx CVA: Yes (right side deficits) Hx Congestive Heart Failure: Yes Hx Diabetes: No Hx Renal Disease: Yes (Chronic renal disease) Hx Arthritis: Yes (gout) Hx Headaches / Migraines: No Hx Seizures: No Hx Asthma: No Hx COPD: No Hx Dementia: No Hx HIV: No Additional medical history: irregular heart beat - Surgical History Past Surgical History?: Yes Hx Pacemaker: Yes Hx Internal Defibrillator: Yes - Social History Smoking Status: Former Smoker Substance Use Type: None - Medications Home Medications: Home Medications Medication Instructions Recorded Confirmed Last Taken Type dilTIAZem CD [Cardizem CD] 240 mg PO QDAY #30 capsule 07/21/19 03/07/21 08/09/19 Rx Albuterol Sulfate [Proventil Hfa] 6.7 gm IH Q4H PRN #1 hfa.aer.ad 12/24/19 03/07/21 Unknown Rx Furosemide [Lasix TAB] 40 mg PO Q12HR 10/25/20 03/07/21 Unknown History Metoprolol [Lopressor TAB] 100 mg PO BID 10/25/20 03/07/21 Unknown History Oxybutynin [Ditropan] 5 mg PO DAILY 10/25/20 03/07/21 Unknown History Rosuvastatin (Nf) [Crestor] 10 mg PO DAILY 10/25/20 03/07/21 Unknown History dilTIAZem CD [Cardizem CD] 240 mg PO QDAY 10/25/20 03/07/21 Unknown History Spironolactone [Aldactone] 25 mg PO QDAY #30 tablet 03/10/21 Unknown Rx Valsartan [Diovan] 160 mg PO BID #60 tablet 03/10/21 Unknown Rx Warfarin [Coumadin] 5 mg PO QDAY #30 tablet 03/10/21 Unknown Rx predniSONE [Deltasone] 40 mg PO QDAY #10 tab 06/16/21 Unknown Rx traMADoL [Ultram] 50 mg PO Q6HR PRN #15 tablet 06/16/21 Unknown Rx ED Physical Exam - General Limitations: Physical Limitation General appearance: alert, in no apparent distress - Head Head exam: Present: atraumatic, normocephalic, normal inspection - Eye Eye exam: Present: normal appearance, PERRL, EOMI Pupils: Present: normal accommodation - ENT ENT exam: Present: normal exam, normal orophraynx, mucous membranes moist, TM's normal bilaterally, normal external ear exam - Neck Neck exam: Present: normal inspection, full ROM - Respiratory Respiratory exam: Present: normal lung sounds bilaterally. Absent: respiratory distress, wheezes, rales, rhonchi, chest wall tenderness, accessory muscle use, decreased breath sounds, prolonged expiratory - Cardiovascular Cardiovascular Exam: Present: regular rate, normal rhythm, normal heart sounds. Absent: systolic murmur, diastolic murmur, rubs, gallop - GI/Abdominal GI/Abdominal exam: Present: soft, normal bowel sounds. Absent: tenderness, guarding, rebound, hyperactive bowel sounds, hypoactive bowel sounds, organomegaly - Extremities Exam Extremities exam: Present: normal inspection, full ROM, tenderness (Palpable left knee joint tenderness with mild crepitus), normal capillary refill. Absent: pedal edema, joint swelling, calf tenderness - Back Exam Back exam: Present: normal inspection, full ROM. Absent: tenderness, CVA tenderness (R), CVA tenderness (L), muscle spasm, paraspinal tenderness, vertebral tenderness - Neurological Exam Neurological exam: Present: alert, oriented X3, CN II-XII intact, abnormal gait (Antalgic gait due to previous CVA with resultant right-sided hemiparesis), reflexes normal - Psychiatric Psychiatric exam: Present: normal affect, normal mood - Skin Skin exam: Present: warm, dry, intact, normal color. Absent: rash ED Course Vital Signs 06/16/21 21:13 Temperature 98.8 F Pulse Rate 73 Respiratory 20 Rate Blood Pressure 142/106 O2 Sat by Pulse 95 Oximetry ED Medical Decision Making - Medical Decision Making This is a 56-year-old -[place] male with a history of hypertension, hyperlipidemia, CVA s/p right-sided hemiparesis, chronic osteoarthritis, chronic kidney disease, A. fib, and CHF who presents to the ED with complaint of persistent severe left knee joint pain intermittently for the last 6 months, worse in the last 2 days. Patient states that he is unable to bear weight on the left knee despite using a walking cane to aid in ambulation given the fact that he has right-sided hemiparesis. In the ED, patient is alert and oriented x3 and is not in any distress. Patient is hemodynamically stable. Patient was treated for pain in the ED and based on the history and physical exam findings, the patient symptoms are likely due to chronic osteoarthritis of the left knee given the fact that the patient has to bear weight entirely on the left side because of right-sided hemiparesis following the previous stroke. Patient was therefore discharged home and advised to follow-up with his primary care physician in 5 to 7 days for reevaluation return to the ED immediately if symptoms get worse. - Differential Diagnosis Chronic osteoarthritis; chronic knee pain, muscle strain Critical care attestation.: If time is entered above; I have spent that time in minutes in the direct care of this critically ill patient, excluding procedure time. ED Disposition Clinical Impression: Chronic osteoarthritis, Chronic pain of left knee Disposition: DC-01 TO HOME OR SELFCARE Is pt being admited?: No Does the pt Need Aspirin: No Condition: Stable Instructions: Chronic Knee Pain, Adult, [id number], Joint Pain, [id number], Arthritis, [id number] Additional Instructions: Your symptoms are likely due to degenerative joint disease of left knee due to the shifting weight to the left following previous history of stroke with right- sided hemiparesis. Therefore take pain medications with food, drink plenty of fluids and follow-up with your primary care physician in 5 to 7 days for reevaluation. Return to the ED immediately if symptoms get worse. Prescriptions: predniSONE [Deltasone] 40 mg PO QDAY #10 tab traMADoL [Ultram] 50 mg PO Q6HR PRN #15 tablet PRN Reason: Pain Referrals: [facility] [Provider Group] - 3-5 Days Time of Disposition: 21:27 Print Language: CITIZEN OF [place]
[2021-06-16 22:17] VITALS: BP 134/80
== END 2021-06-16 22:18 | disposition home or self-care (01) ==
LOC: ED 20:51
DX: M25.562 Pain in left knee (principal); M17.12 Unilateral primary osteoarthritis, left knee; G89.29 Other chronic pain; I13.0 Hypertensive heart and chronic kidney disease with heart failure and stage 1 through stage 4 chronic kidney disease, or unspecified chronic kidney disease; N18.9 Chronic kidney disease, unspecified; M10.9 Gout, unspecified; Z98.890 Other specified postprocedural states
CPT/HCPCS: 99282; J7512; Q0162

== ENCOUNTER 2021-06-27 07:21 | Inpatient (IN) | payer MEDICARE ==
[2021-07-02 12:48] VITALS: BP 135/93
== END 2021-07-02 18:15 | disposition home health service (06) | DRG 308 ==
LOC: ED 07:21 → IMCU 06-28 03:27 → 4A 06-30 20:47
PROVIDERS: ADMIT Hospitalist; ATTEND Internal Medicine
DX: I48.21 Permanent atrial fibrillation (principal); I50.23 Acute on chronic systolic (congestive) heart failure; I13.0 Hypertensive heart and chronic kidney disease with heart failure and stage 1 through stage 4 chronic kidney disease, or unspecified chronic kidney disease; I42.8 Other cardiomyopathies; N18.9 Chronic kidney disease, unspecified; E78.2 Mixed hyperlipidemia; M10.9 Gout, unspecified; E87.6 Hypokalemia; Z86.73 Personal history of transient ischemic attack (TIA), and cerebral infarction without residual deficits; Z95.810 Presence of automatic (implantable) cardiac defibrillator
CPT/HCPCS: 36415; 36600; 71046; 80048; 81001; 82805; 83735; 83880; 84443; 84484; 85025; 85610; 93005; G0378; A9270-GY; J1160; J1940

== ENCOUNTER 2021-09-07 19:31 | Emergency (ER) | payer MEDICARE ==
[2021-09-07 20:27] VITALS: BP 150/94
--- NOTE | 2021-09-07 23:20 | Emergency Department Report ---
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 Patient has a small ulceration/wound to the left heel at area of maximal tenderness. Patient also has a left great toe tenderness and right heel tenderness. No drainage reported from the wound. Patient received seen by picture hanger and had outpatient MRI showing "abnormal blood vessel in left foot). Patient is scheduled to see vascular surgeon for the first time on September 11. No reports of fever or known trauma is at the bedside providing verbal history since patient is aphasic As per they are to follow-up with self only and vascular in [place] at [address] at [phone] - Related Data Home Medications Medication Instructions Recorded Confirmed Last Taken Furosemide [Lasix] 40 mg PO BID 06/28/21 06/28/21 Unknown Metoprolol Xl [Metoprolol 200 mg PO QDAY 06/28/21 06/28/21 Unknown SUCCINATE ER TAB] NIFEdipine [Nifedipine ER] 30 mg PO QDAY 06/28/21 06/28/21 Unknown Oxybutynin [Ditropan] 5 mg PO BID 06/28/21 06/28/21 Unknown Rosuvastatin Calcium 10 mg PO QDAY 06/28/21 06/28/21 Unknown Valsartan [Diovan] 160 mg PO BID 06/28/21 06/28/21 Unknown Previous Rx's Medication Instructions Recorded Last Taken Type Spironolactone [Aldactone] 25 mg PO QDAY #30 tablet 07/02/21 Unknown Rx Warfarin [Coumadin] 5 mg PO QDAY #30 tablet 07/02/21 Unknown Rx dilTIAZem CD [Cardizem CD] 240 mg PO QDAY #30 cap 07/02/21 Unknown Rx HYDROcodone/APAP 5-325 [[place] 1 each PO Q6HR PRN #12 tablet 09/08/21 Unknown Rx 5/325] cephALEXin [Keflex] 500 mg PO Q6HR #40 capsule 09/08/21 Unknown Rx Allergies Allergy/AdvReac Type Severity Reaction Status Date / Time No Known Allergies Allergy Verified 05/10/20 18:36 ED Review of Systems ROS: Stated complaint: SKIN ISSUES TO HEELS OF FEET Other details as noted in HPI Comment: All other systems reviewed and negative ED Past Medical Hx - Past Medical History Hx Hypertension: Yes Hx CVA: Yes (right side deficits) Hx Congestive Heart Failure: Yes Hx Diabetes: No Hx GERD: Yes Hx Renal Disease: Yes (Chronic renal disease) Hx Arthritis: Yes (gout) Hx Headaches / Migraines: No Hx Seizures: No Hx Asthma: No Hx COPD: No Hx Dementia: No Hx HIV: No Additional medical history: irregular heart beat - Surgical History Hx Pacemaker: (AICD) Hx Internal Defibrillator: Yes - Social History Smoking Status: Current Some Day Smoker - Medications Home Medications: Home Medications Medication Instructions Recorded Confirmed Last Taken Type Furosemide [Lasix] 40 mg PO BID 06/28/21 06/28/21 Unknown History Metoprolol Xl [Metoprolol 200 mg PO QDAY 06/28/21 06/28/21 Unknown History SUCCINATE ER TAB] NIFEdipine [Nifedipine ER] 30 mg PO QDAY 06/28/21 06/28/21 Unknown History Oxybutynin [Ditropan] 5 mg PO BID 06/28/21 06/28/21 Unknown History Rosuvastatin Calcium 10 mg PO QDAY 06/28/21 06/28/21 Unknown History Valsartan [Diovan] 160 mg PO BID 06/28/21 06/28/21 Unknown History Spironolactone [Aldactone] 25 mg PO QDAY #30 tablet 07/02/21 Unknown Rx Warfarin [Coumadin] 5 mg PO QDAY #30 tablet 07/02/21 Unknown Rx dilTIAZem CD [Cardizem CD] 240 mg PO QDAY #30 cap 07/02/21 Unknown Rx HYDROcodone/APAP 5-325 [[place] 1 each PO Q6HR PRN #12 tablet 09/08/21 Unknown Rx 5/325] cephALEXin [Keflex] 500 mg PO Q6HR #40 capsule 09/08/21 Unknown Rx ED Physical Exam - General Limitations: Other - Other Other exam information: General: No acute distress Head: Atraumatic Eyes: normal appearance ENT: Moist mucous membranes Neck: Normal appearance, no midline tenderness Chest: Clear to auscultation bilaterally CV: Regular rate and rhythm Abdomen: Soft, normal bowel sounds, nontender, nondistended, no rebound or guarding Back: Normal inspection Extremity: Left heel small superficial ulceration/wound without drainage. Small superficial scratch wound to the right heel. Bilateral foot edema. Feet are warm but not hot. No no cyanosis or redness, or erythema. Unable to Doppler either dorsalis pedis pulse and nurses unable to identify pulse with Doppler Neuro: Alert aphasic, right-sided arm weakness with contracture Psych: Appropriate behavior Skin: No rash ED Course Vital Signs 09/07/21 20:26 Temperature 99.0 F Pulse Rate 96 H Respiratory 16 Rate Blood Pressure 150/94 [Left] O2 Sat by Pulse 96 Oximetry - Consultations Consultation #1: 09/08/21 00:13 Case d/w dr Shrestha [place] floorperson vascular surgeon. He agrees that it sounds like patient has chronic vascular insufficiency. Recommends empiric treatment with 10 days of Keflex and to continue with his outpatient work-up and follow-up. Patient is also welcome to follow-up with their practice ED Medical Decision Making - Lab Data Result diagrams: 09/07/21 22:59 09/07/21 22:59 Lab Results 09/07/21 09/07/21 Range/Units 22:59 22:59 WBC 7.5 (4.5-11.0) K/mm3 RBC 5.83 H (3.65-5.03) M/mm3 Hgb 16.0 H (11.8-15.2) gm/dl Hct 49.6 H (35.5-45.6) % MCV 85 (84-94) fl MCH 28 (28-32) pg MCHC 32 (32-34) % RDW 15.8 H (13.2-15.2) % Plt Count 310 (140-440) K/mm3 Sodium 145 (137-145) mmol/L Potassium 4.3 (3.6-5.0) mmol/L Chloride 104.2 (98-107) mmol/L Carbon Dioxide 26 (22-30) mmol/L Anion Gap 19 mmol/L BUN 14 (9-20) mg/dL Creatinine 1.5 H (0.8-1.3) mg/dL Estimated GFR 59 ml/min BUN/Creatinine Ratio 9 % Glucose 110 H (75-100) mg/dL Calcium 9.8 (8.4-10.2) mg/dL - Radiology Data Radiology results: report reviewed Bilateral feet INDICATION: Heel pain FINDINGS: Marked irregularity seen within the great toe MTP joint. There is erosive destructive changes at the MTP joint. Calcaneal spurring is seen. Calcaneus is otherwise intact. Diffuse soft tissue swelling throughout the foot. Mild degenerative change in the Achilles insertion. MTP joints and IP joints appear intact within the right foot. Diffuse soft tissue swelling is seen. IMPRESSION: 1. Diffuse soft tissue swelling in bilateral feet could represent diffuse cellulitis. No bony destructive change of the calcaneus is definitely seen however there may be an erosion near the region of the Achilles attachment on the left. 2. Marked irregularity within the left MTP joint. Osteomyelitis and destructive change cannot be excluded. MRI could be performed for further evaluation. - Medical Decision Making 56-year-old male presents to the hospital for 1 week of progressive worsening left heel and bilateral heel pain with associated dry skin and likely has PAD with new heel ulcerations. Left MTP x-ray findings noted above patient also has a history of gout. No signs of sepsis. Case discussed with vascular surgeon and continued outpatient follow-up advised in addition to empiric Keflex.. Patient encouraged to continue Eliquis as prescribed. Patient got 1 dose of Keflex and [place] in the ED and outpatient follow-up will be advised. Critical Care Time: No Critical care attestation.: If time is entered above; I have spent that time in minutes in the direct care of this critically ill patient, excluding procedure time. 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 Follow-up with your doctor or doctor/clinic provided. Return if symptoms worsen as indicated by your discharge instructions. Prescriptions: cephALEXin [Keflex] 500 mg PO Q6HR #40 capsule HYDROcodone/APAP 5-325 [[place] 5/325] 1 each PO Q6HR PRN #12 tablet PRN Reason: Pain Referrals: AVANI SHRESTHA MD [Staff Physician] - 3-5 Days (Vascular surgeon) Time of Disposition: 00:42
[2021-09-07 23:26] LABS: Hematocrit 49.6 % (35.5-45.6); Mean Corpuscular HGB Conc 32 % (32-34); Mean Corpuscular Volume 85 fl (84-94); Platelet Count 310 K/mm3 (140-440); Red Blood Count 5.83 M/mm3 (3.65-5.03); Red Cell Distribution Width 15.8 % (13.2-15.2)
--- NOTE | 2021-09-07 23:34 | XRay Report ---
Bilateral feet INDICATION: Heel pain FINDINGS: Marked irregularity seen within the great toe MTP joint. There is erosive destructive berger es at the MTP joint. Calcaneal spurring is seen. Calcaneus is otherwise intact. Diffuse soft tissue s welling throughout the foot. Mild degenerative change in the Achilles insertion. MTP joints and IP laura ints appear intact within the right foot. Diffuse soft tissue swelling is seen. IMPRESSION: 1. Diffuse soft tissue swelling in bilateral feet could represent diffuse cellulitis. No bony destruc tive change of the calcaneus is definitely seen however there may be an erosion near the region of th e Achilles attachment on the left. 2. Marked irregularity within the left MTP joint. Osteomyelitis and destructive change cannot be excl uded. MRI could be performed for further evaluation. Signer Name: Henry Colón MD Signed: 09/07/2021 11:29 PM Workstation Name: [id number]
[2021-09-07 23:40] LABS: Calcium 9.8 mg/dL (8.4-10.2)
[2021-09-08] MEDS ORDERED: cephALEXin 500 MG CAP PO ONE (00:12)
[2021-09-08] MEDS ORDERED: HYDROcodone/ACETAMINOPHEN 5-325 MG TAB PO ONE (00:12)
[2021-09-08 02:24] LABS: Total Cells Counted 100
[2021-09-08 02:25] LABS: Giant Platelets Few; RBC Morphology Normal
[2021-09-08 02:26] LABS: Platelet Estimate Consistent w Auto
== END 2021-09-08 01:21 | disposition home or self-care (01) ==
LOC: ED 19:31
DX: I73.9 Peripheral vascular disease, unspecified (principal); M79.671 Pain in right foot; M79.672 Pain in left foot; L97.429 Non-pressure chronic ulcer of left heel and midfoot with unspecified severity; Z79.01 Long term (current) use of anticoagulants; F17.200 Nicotine dependence, unspecified, uncomplicated; I10 Essential (primary) hypertension; Z86.73 Personal history of transient ischemic attack (TIA), and cerebral infarction without residual deficits; Z86.79 Personal history of other diseases of the circulatory system
CPT/HCPCS: 36415; 80048; 85007; 85025; 99284

== ENCOUNTER 2021-11-26 18:13 | Emergency (ER) | payer MEDICARE ==
--- NOTE | 2021-11-27 03:04 | Emergency Department Report ---
ED Upper Extremity Inj HPI - General Chief Complaint: Abdominal Pain Stated Complaint: ABDOMINAL PAIN Time Seen by Provider: 11/27/21 01:17 Source: patient, EMS Mode of arrival: Stretcher Limitations: No Limitations - History of Present Illness Initial Comments: 56-year-old male right-sided paraplegia left-sided dependent presents emerged department complaining of elbow pain and swelling after repeated transfers and leaning on the elbow excessively in efforts to try to keep pressure off his left foot where he has a pressure sore which is currently being treated by wound management. Due to the compromising of weight due to pain he developed pain and swelling to the elbow which worsens with palpation and range of motion and presents emergency department seeking further evaluation treatment options he reports no blunt trauma or falls exacerbating the pain. Pain is dull and throbbing and worse with twisting and turning of the arm in flexion and extension. Complaint: Injury to:: left, elbow -: Gradual, days(s) Other Extremity Injury: Elbow: Left Other Injuries: none Place: home Worsens With: movement of extremity Context: other - Related Data Home Medications Medication Instructions Recorded Confirmed Last Taken Furosemide [Lasix] 40 mg PO BID 06/28/21 06/28/21 Unknown Metoprolol Xl [Metoprolol 200 mg PO QDAY 06/28/21 06/28/21 Unknown SUCCINATE ER TAB] NIFEdipine [Nifedipine ER] 30 mg PO QDAY 06/28/21 06/28/21 Unknown Oxybutynin [Ditropan] 5 mg PO BID 06/28/21 06/28/21 Unknown Rosuvastatin Calcium 10 mg PO QDAY 06/28/21 06/28/21 Unknown Valsartan [Diovan] 160 mg PO BID 06/28/21 06/28/21 Unknown Previous Rx's Medication Instructions Recorded Last Taken Type Spironolactone [Aldactone] 25 mg PO QDAY #30 tablet 07/02/21 Unknown Rx Warfarin [Coumadin] 5 mg PO QDAY #30 tablet 07/02/21 Unknown Rx dilTIAZem CD [Cardizem CD] 240 mg PO QDAY #30 cap 07/02/21 Unknown Rx HYDROcodone/APAP 5-325 [[place] 1 each PO Q6HR PRN #12 tablet 09/08/21 Unknown Rx 5/325] cephALEXin [Keflex] 500 mg PO Q6HR #40 capsule 09/08/21 Unknown Rx Ketorolac [Toradol] 10 mg PO Q12H PRN #10 11/27/21 Unknown Rx Allergies Allergy/AdvReac Type Severity Reaction Status Date / Time No Known Allergies Allergy Verified 05/10/20 18:36 ED Review of Systems ROS: Stated complaint: ABDOMINAL PAIN Other details as noted in HPI Comment: All other systems reviewed and negative ED Past Medical Hx - Past Medical History Hx Hypertension: Yes Hx CVA: Yes (right side deficits) Hx Congestive Heart Failure: Yes Hx Diabetes: No Hx GERD: Yes Hx Renal Disease: Yes (Chronic renal disease) Hx Arthritis: Yes (gout) Hx Headaches / Migraines: No Hx Seizures: No Hx Asthma: No Hx COPD: No Hx Dementia: No Hx HIV: No Additional medical history: irregular heart beat - Surgical History Hx Pacemaker: (AICD) Hx Internal Defibrillator: Yes - Social History Smoking Status: Current Some Day Smoker - Medications Home Medications: Home Medications Medication Instructions Recorded Confirmed Last Taken Type Furosemide [Lasix] 40 mg PO BID 06/28/21 06/28/21 Unknown History Metoprolol Xl [Metoprolol 200 mg PO QDAY 06/28/21 06/28/21 Unknown History SUCCINATE ER TAB] NIFEdipine [Nifedipine ER] 30 mg PO QDAY 06/28/21 06/28/21 Unknown History Oxybutynin [Ditropan] 5 mg PO BID 06/28/21 06/28/21 Unknown History Rosuvastatin Calcium 10 mg PO QDAY 06/28/21 06/28/21 Unknown History Valsartan [Diovan] 160 mg PO BID 06/28/21 06/28/21 Unknown History Spironolactone [Aldactone] 25 mg PO QDAY #30 tablet 07/02/21 Unknown Rx Warfarin [Coumadin] 5 mg PO QDAY #30 tablet 07/02/21 Unknown Rx dilTIAZem CD [Cardizem CD] 240 mg PO QDAY #30 cap 07/02/21 Unknown Rx HYDROcodone/APAP 5-325 [[place] 1 each PO Q6HR PRN #12 tablet 09/08/21 Unknown Rx 5/325] cephALEXin [Keflex] 500 mg PO Q6HR #40 capsule 09/08/21 Unknown Rx Ketorolac [Toradol] 10 mg PO Q12H PRN #10 01/11/22 Unknown Rx ED Physical Exam - General Limitations: No Limitations General appearance: alert, in no apparent distress - Head Head exam: Present: atraumatic, normocephalic - Eye Eye exam: Present: normal appearance, PERRL, EOMI Pupils: Present: normal accommodation - ENT ENT exam: Present: mucous membranes moist - Neck Neck exam: Present: normal inspection - Respiratory Respiratory exam: Present: normal lung sounds bilaterally. Absent: respiratory distress - Cardiovascular Cardiovascular Exam: Present: regular rate, normal rhythm. Absent: systolic murmur, diastolic murmur, rubs, gallop - GI/Abdominal GI/Abdominal exam: Present: soft, normal bowel sounds - Rectal Rectal exam: Present: deferred - Extremities Exam Extremities exam: Present: normal inspection, tenderness (Tenderness to the elbow region with some swelling to the olecranon region. No warmth is present. Joint is stable. Pain with flexion is noted normal supination and pronation although there is some discomfort to the elbow with that as well) - Back Exam Back exam: Present: normal inspection. Absent: CVA tenderness (R), CVA tenderness (L) - Neurological Exam Neurological exam: Present: alert, oriented X3, CN II-XII intact, normal gait - Psychiatric Psychiatric exam: Present: normal affect, normal mood - Skin Skin exam: Present: warm, dry, intact, normal color. Absent: rash Critical care attestation.: If time is entered above; I have spent that time in minutes in the direct care of this critically ill patient, excluding procedure time. ED Disposition Clinical Impression: Olecranon bursitis of left elbow Disposition: HOME / SELF CARE / HOMELESS Is pt being admited?: No Does the pt Need Aspirin: No Condition: Stable Instructions: Elbow Bursitis Prescriptions: Ketorolac [Toradol] 10 mg PO Q12H PRN #10 PRN Reason: Pain Referrals: KIT NICHOLS MD [Primary Care Provider] - 3-5 Days
[2021-11-27 04:13] VITALS: BP 131/77
== END 2021-11-27 04:13 | disposition home or self-care (01) ==
LOC: ED 18:13
DX: M70.22 Olecranon bursitis, left elbow (principal); Y93.89 Activity, other specified; I10 Essential (primary) hypertension; K21.9 Gastro-esophageal reflux disease without esophagitis; M19.90 Unspecified osteoarthritis, unspecified site; F17.200 Nicotine dependence, unspecified, uncomplicated; Z79.899 Other long term (current) drug therapy
CPT/HCPCS: 99283